=== PATIENT | female | born 1965 | race Caucasian/White ===

== ENCOUNTER 2017-10-20 14:25 | Emergency (ER) | payer OTHER, SELFPAY ==
[2017-10-20 14:44] LABS: Bilirubin Negative (Negative); Blood, Urine Negative (Negative); Glucose, Urine (Dipstick) Negative (Negative); Ketone, Urine Negative (Negative); Nitrite Negative (Negative); Protein, Urine (Dipstick) Negative (Neg-Trace); Urobilinogen 0.2 mg/dL (0.2-1.0)
[2017-10-20 14:46] LABS: Bacteria/HPF None Seen HPF (None Seen); Hyaline Casts/LPF 0-3 HYALINE CAST LPF (0-3 Hyaline); RBC/HPF 0-3 HPF (0-3); Squamous Epithelial 0-3 HPF (0-3); WBC/HPF 0-3 HPF (0-3)
[2017-10-20 15:13] LABS: #Basophils 0.1 thou/uL (0.0-0.2); #Eosinphils 0.1 thou/uL (0.0-0.7); #Lymphocytes 2.6 thou/uL (1.20-3.40); #Monocytes 0.9 thou/uL (0.11-0.59); #Neutrophils 8.2 thou/uL (1.40-6.50); %Basophils 0.8 % (0.0-1.0); %Eosinophils 0.7 % (0.0-10.0); %Lymphocytes 21.9 % (21.0-51.0); %Monocytes 7.4 % (0.0-10.0); Hematocrit 39.7 % (36.0-47.0); Mean Platelet Volume 6.4 fL (7.4-10.4); Red Blood Cell (RBC) Count 4.47 mill/uL (4.20-5.40); White Blood Cell (WBC) Count 11.8 thou/uL (4.8-10.8)
[2017-10-20 15:35] LABS: ALT (SGPT) 24 U/L (8-55); AST (SGOT) 20 U/L (5-34); Alkaline Phosphatase 156 U/L (40-150); Anion Gap 13 mmol/L (10-20); BUN (Urea Nitrogen) 7 mg/dL (9.8-20.1); Bilirubin, Total 0.3 mg/dL (0.2-1.2); Calc. Creatinine Clearance 0 mL/min (70-130); Calcium 9.5 mg/dL (7.8-10.44); Carbon Dioxide 27 mmol/L (22-29); Chloride 104 mmol/L (98-107); Estimated GFR-MDRD 89; Globulin 3.5 g/dL (2.4-3.5); Lipase 13 U/L (8-78); Protein, Total 7.3 g/dL (6.0-8.3)
[2017-10-20] MEDS ORDERED: Lidocaine Viscous Sol 2% 15 ml UD Cup ONE (17:14)
[2017-10-20] MEDS ORDERED: Mag-Al 1200 mg/1200 mg/30 ML UDCUP ONE (17:14)
--- NOTE | 2017-10-20 17:21 | RAD ---
ABDOMEN TWO VIEWS ONE VIEW CHEST X-RAY 10/20/17 HISTORY: Left sided abdominal pain. COMPARISON: Chest one view 02/07/17. FINDINGS: The lungs are clear. No pneumothorax or effusion. The cardiac silhouette and mediastinal contours are similar. Mild S-shaped scoliosis. On the upright view, there is no free air in the hemidiaphragms. No dilated air filled loops of large or small bowel. 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 No abnormal calcification projecting over the renal shadows. IMPRESSION: No acute intra-abdominal abnormality. POS: [facility]
[2017-10-20] MEDS ORDERED: Famotidine/PF 20 mg/2ml Vial ONE (18:07)
[2017-10-20] MEDS ORDERED: Promethazine HCl 25 MG/ML VIAL ONE (18:07)
== END 2017-10-20 20:15 | disposition home or self-care (01) ==
LOC: ERS 14:25
DX: K29.70 Gastritis, unspecified, without bleeding (principal); K29.80 Duodenitis without bleeding; I10 Essential (primary) hypertension; F32.9 Major depressive disorder, single episode, unspecified; F17.210 Nicotine dependence, cigarettes, uncomplicated; Z79.899 Other long term (current) drug therapy
CPT/HCPCS: 36415; 74022; 80053; 81003; 81015; 83690; 85025; 96365; 96366; 96375; 99406; J2550; S0028

== ENCOUNTER 2018-01-30 19:58 | Inpatient (IN) | payer SELFPAY ==
[2018-01-30 20:51] LABS: #Eosinphils 0.1 thou/uL (0.0-0.7); #Monocytes 1.4 thou/uL (0.11-0.59); #Neutrophils 13.2 thou/uL (1.40-6.50); %Basophils 0.2 % (0.0-1.0); %Eosinophils 0.4 % (0.0-10.0); %Monocytes 8.4 % (0.0-10.0); Hemoglobin 11.4 g/dL (12.0-16.0); Mean Corpuscular HGB CONC 32.8 g/dL (32.0-36.0); Mean Corpuscular Hemoglobin 28.8 pg (27.0-31.0); Mean Platelet Volume 6.8 fL (7.4-10.4); Platelet Count 372 thou/uL (130-400); RBC Distribution Width 13.6 % (11.5-14.5); Red Blood Cell (RBC) Count 3.94 mill/uL (4.20-5.40); White Blood Cell (WBC) Count 16.7 thou/uL (4.8-10.8)
[2018-01-30 20:59] LABS: Bilirubin Negative (Negative); Blood, Urine Negative (Negative); Clarity CLOUDY (Clear); Glucose, Urine (Dipstick) Negative (Negative); Leukocyte Trace (Negative); Nitrite Negative (Negative); Protein, Urine (Dipstick) Negative (Neg-Trace); Specific Gravity, Urine 1.022 (1.002-1.036); Urobilinogen 0.2 mg/dL (0.2-1.0)
[2018-01-30 21:01] LABS: Bacteria/HPF None Seen HPF (None Seen); Pathc Cast-AUWi Flag 1.21 (0-2.49); Squamous Epithelial 0-3 HPF (0-3); WBC/HPF 0-3 HPF (0-3)
[2018-01-30 21:06] LABS: Medtox Reader # READER 4
[2018-01-30 21:07] LABS: Amphetamine Not Detected (NotDetected); Barbiturates Screen Not Detected (NotDetected); Benzodiazepine Screen Not Detected (NotDetected); Cocaine Metabolite Screen Not Detected (NotDetected); Medtox Control Line Valid? VALID (VALID); Methadone Not Detected (NotDetected); Methamphetamine Not Detected (NotDetected); Opiate Screen Detected (NotDetected); Oxycodone Screen Not Detected (NotDetected); Phencyclidine (PCP) Not Detected (NotDetected); THC/Cannabinoid Screen Not Detected (NotDetected); Tricyclic Screen Detected (NotDetected)
--- NOTE | 2018-01-30 21:20 | RAD ---
PORTABLE CHEST ONE VIEW: 01/30/18 at 8:43 p.m. HISTORY: Altered mental status, possible drug use. FINDINGS: Comparison is made with exam of 02/07/17. The heart size is normal. No confluent areas of consolidation, pneumothorax, awilda pulmonary edema, o r pleural effusions are seen. IMPRESSION: No acute process. POS: [facility]
[2018-01-30 21:27] LABS: ALT (SGPT) 28 U/L (8-55); AST (SGOT) 74 U/L (5-34); Albumin 3.9 g/dL (3.5-5.0); Alkaline Phosphatase 150 U/L (40-150); Anion Gap 26 mmol/L (10-20); BUN (Urea Nitrogen) 61 mg/dL (9.8-20.1); Bilirubin, Total 0.4 mg/dL (0.2-1.2); Calc. Creatinine Clearance 0 mL/min (70-130); Calcium 8.4 mg/dL (7.8-10.44); Carbon Dioxide 11 mmol/L (22-29); Chloride 98 mmol/L (98-107); Estimated GFR-MDRD 6; Glucose 74 mg/dL (70-105); Potassium 4.8 mmol/L (3.5-5.1); Protein, Total 6.9 g/dL (6.0-8.3); Sodium 130 mmol/L (136-145)
[2018-01-30] MEDS ORDERED: Meropenem 1 GM in Syringe 20 ML SLOW IVP SCH (21:30)
[2018-01-30 22:20] LABS: INR-International Normal Ratio 1.3; PTT 35.7 SEC (22.9-36.1); Prothrombin Time 16.3 SEC (12.0-14.7)
[2018-01-30 22:21] LABS: D-Dimer Test 0.77 *mcg/mL (0.27-0.43)
[2018-01-30 22:32] LABS: Creatinine, Urine 91.82 mg/dL (47-110)
--- NOTE | 2018-01-30 22:53 | ULT ---
VENOUS DOPPLER ULTRASOUND OF THE RIGHT UPPER EXTREMITY: 01/30/18 HISTORY: Right arm bruising and edema. TECHNIQUE: Pratt scale ultrasound with color flow and spectral doppler imaging of the deep venous system of the r ight upper extremity is performed. FINDINGS: There is good flow, compression, and augmentation and normal spectral waveforms noted in the internal jugular, subclavian, axillary, brachial, basilic, ulnar, radial, and cephalic veins. IMPRESSION: No evidence of DVT in the right upper extremity. POS: [facility]
[2018-01-30] MEDS ORDERED: Norepinephrine 8 MG in Sodium Chloride 0.9% 250 ML 250 ML IVPB PRN (22:59)
[2018-01-30] MEDS ORDERED: Lorazepam 2 MG/ML VIAL ONE ×2 (23:04→23:57)
--- NOTE | 2018-01-30 23:17 | RAD ---
RIGHT HUMERUS TWO VIEWS: 01/30/18 HISTORY: Right arm pain. FINDINGS/IMPRESSION: The right humerus is intact. POS: [facility]
--- NOTE | 2018-01-30 23:49 | CT ---
CT BRAIN WITHOUT CONTRAST 01/30/18 HISTORY: Altered mental status. FINDINGS: No evidence of acute infarct, hemorrhage, midline shift or abnormal extra-axial fluid collections are seen. The ventricular size is normal and the basilar cisterns patent. The bony calvarium is intact. The visualized paranasal sinuses and mastoid air cells are well aerated. IMPRESSION: No acute process. POS: [facility]
--- NOTE | 2018-01-30 23:54 | CT ---
CT CHEST WITHOUT CONTRAST CT ABDOMEN WITHOUT CONTRAST CT PELVIS WITHOUT CONTRAST 01/30/18 HISTORY: Altered mental status, abdominal pain, recent fever. FINDINGS: Absence of IV contrast reduces the sensitivity of the exam for evaluation of mediastinal, hilar, vasc ular structures and solid organs. Absence of oral contrast reduces sensitivity of the exam for evalua tion of bowel. No pneumothorax, pleural or pericardial effusions are seen. Mild patchy infiltrates are seen in the m id and lower lung tobin. No free air or free fluid is seen in the abdomen or pelvis. There is high d ensity material in the dependent portions of the gallbladder consistent with cholelithiasis. There is a punctate calculus in the left kidney seen on the coronal reconstructions. No calculi seen in the r ight kidney, ureters or the urinary bladder. No hydroureteronephrosis identified on either side. Ther e are degenerative changes in the thoracolumbar spine. There are vascular calcifications without evid ence of aneurysmal dilatation of the thoracolumbar spine. IMPRESSION: 1. Mild patchy infiltrates in the lung tobin bilaterally. 2. Cholelithiasis. 3. Punctate nonobstructing left renal calculus. POS: [facility]
[2018-01-31] MEDS ORDERED: Lorazepam 2 MG/ML VIAL ONE (00:51)
[2018-01-31 03:27] LABS: Base Excess-Venous -16.2 mmol/L (-30.0-30.0); Bicarbonate (HCO3v) 11.1 mmol/L (1.0-85.0); CO2 Tension (PvCO2) 30.8 mmHg (41.0-51.0); Calcium, Ionized 1.06 mmol/L (1.12-1.32); Hemoglobin - Calc 10.7 g/dL (12.0-18.0); O2 Tension (PvO2) 47.5 mmHg (35.0-45.0); Potassium 4.1 mmol/L (3.4-4.7); T. Carbon Dioxide 12.1 mmol/L (1.0-85.0); pH (Venous) 7.165 (7.35-7.45); vO2 Saturation-calc 72.4 % (0.0-100.0)
[2018-01-31] MEDS ORDERED: Sodium Bicarb 50 MEQ/50 ML Abboject 8.4% SYRINGE ONE (03:29)
[2018-01-31] MEDS ORDERED: Ondansetron HCl/PF 4 MG/2 ML Vial IVP PRN (04:20)
[2018-01-31] MEDS ORDERED: Sodium Chloride 0.45% 1,000 ML IV SCH (04:20)
[2018-01-31] MEDS ORDERED: Ondansetron ODT 4 MG TAB SL PRN (04:20)
[2018-01-31 04:27] LABS: Acetaminophen Less than 6.0 mcg/mL (10.0-30.0); Alcohol Less than 10 mg/dL (Less than 10); Salicylate Less than 8.0 mg/dL (15.0-30.0)
[2018-01-31 04:59] VITALS: BMI 36.9
[2018-01-31] MEDS ORDERED: Norepinephrine 8 MG in Sodium Chloride 0.9% 250 ML 250 ML IVPB PRN (07:11)
[2018-01-31 07:36] LABS: Anion Gap 25 mmol/L (10-20); BUN (Urea Nitrogen) 52 mg/dL (9.8-20.1); Calc. Creatinine Clearance 27 mL/min (70-130); Calcium 8.4 mg/dL (7.8-10.44); Carbon Dioxide 13 mmol/L (22-29); Chloride 108 mmol/L (98-107); Estimated GFR-MDRD 13; Glucose 88 mg/dL (70-105); Sodium 142 mmol/L (136-145)
[2018-01-31 07:37] LABS: #Basophils 0.1 thou/uL (0.0-0.2); #Eosinphils 0.1 thou/uL (0.0-0.7); #Lymphocytes 2.4 thou/uL (1.20-3.40); #Monocytes 1.6 thou/uL (0.11-0.59); #Neutrophils 9.5 thou/uL (1.40-6.50); %Basophils 0.5 % (0.0-1.0); %Eosinophils 0.6 % (0.0-10.0); %Lymphocytes 17.8 % (21.0-51.0); %Monocytes 11.5 % (0.0-10.0); %Neutrophils 69.6 % (42.0-75.0); Hemoglobin 11.4 g/dL (12.0-16.0); Mean Corpuscular HGB CONC 33.3 g/dL (32.0-36.0); Mean Corpuscular Hemoglobin 30.2 pg (27.0-31.0); Mean Corpuscular Volume 90.7 fl (81.0-99.0); Mean Platelet Volume 7.6 fL (7.4-10.4); Platelet Count 348 thou/uL (130-400); RBC Distribution Width 13.4 % (11.5-14.5); Red Blood Cell (RBC) Count 3.78 mill/uL (4.20-5.40); White Blood Cell (WBC) Count 13.6 thou/uL (4.8-10.8)
[2018-01-31] MEDS: Sodium Chloride 0.9% 1,000 ML IV SCH ×2 (07:53→16:14)
[2018-01-31] MEDS: Meropenem 500 MG, Admixture Fee 1 EACH in Sterile Water 10 ML SLOW IVP SCH ×3 (11:31→23:21)
--- NOTE | 2018-01-31 13:03 | CON ---
DATE OF CONSULTATION: 01/31/2018 HISTORY OF PRESENT ILLNESS: Ms. Balbuena is a 52-year-old white female who was admitted for acute men seven status change. Initial imaging of the head showed no acute intracranial abnormality. She has al so a history of drug use? She was initially noted to be hypotensive and acute kidney injury. She wa s initially volume repleted. She was also placed on pressor support due to the low blood pressure. A temporary dialysis catheter was placed. However, renal function slowly improving. We were consulted for further management of this acute kidney injury. REVIEW OF SYSTEMS: Positive for decreased mentation. No nausea, no vomiting. Decreased appetite an d decreased p.o. intake. No diarrhea, no constipation, no fever, chills, no headache, no diplopia, n o sore throat, no abdominal pain, no gross hematuria, no dysuria, no urinary frequency, no syncopal e pisode. HOME MEDICATIONS: Zoloft 100 mg q. day, gabapentin 600 mg q. day and tramadol 50 mg q.i.d. HOSPITAL MEDICATIONS: Includes Levophed, meropenem 500 mg IV q.6 hours and normal saline at 100 mL p er hour. PAST MEDICAL HISTORY: Includes the following; hypertension, hyperlipidemia, history of drug abuse, c hronic low back pain, history of anxiety and depression. PAST SURGICAL HISTORY: 1. Status post hysterectomy. 2. Status post section. SOCIAL HISTORY: The patient lives in [place], unemployed. Two children. Currently, denies any his tory of smoking or alcohol intake, but does have use of recreational drugs. Lives with her family. ALLERGIES: None. TRAUMA: None. IMMUNIZATIONS: Up to date. HOSPITALIZATIONS: Please see past medical history. PHYSICAL EXAMINATION: VITAL SIGNS: Blood pressure is noted at 133/64, heart rate 101, respiratory rate 24 and pulse ox 100 %. GENERAL: Awake, alert and comfortable, not in distress. SKIN: Adequate turgor. HEENT: Pinkish conjunctivae, anicteric sclerae. NECK: No neck mass, no carotid bruits, no JVD. CHEST: No deformities. LUNGS: Clear breath sounds. No wheezing, no crackles. HEART: Normal sinus rhythm. No murmur, no gallops, no rubs. ABDOMEN: Globular, soft and nontender. No masses. EXTREMITIES: No edema, no deformities. LABORATORY DATA: Laboratories of 01/31/2018; white count 13.6 and hemoglobin 11.4. Sodium 142, pota ssium 4, chloride 108, carbon dioxide 13, BUN is 52, creatinine 3.72 and calcium 8.4. Further review of her serum creatinine shows the following 01/30/2018; creatinine is 6.67 and on 10/20/2017, creati nine was noted at 0.69. Urinalysis was relatively benign except for a very concentrated specific gravity. IMAGING DATA: CT scan of the brain negative intracranial abnormality. Chest x-ray was clear. Doppl er right upper extremity negative for DVT. X-ray of the humerus negative. CT scan of the abdomen an d pelvis, no obstruction. ASSESSMENT AND PLAN: Acute kidney injury - This is most likely hemodynamically mediated renal dysfun ction. The patient is much improved with the stabilization of her hemodynamic status. I agree with pressor support and volume repletion. There is no indication for any dialytic intervention. Thank you for the consult. We will continue to follow.
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
[2018-02-01] MEDS: Meropenem 500 MG, Admixture Fee 1 EACH in Sterile Water 10 ML SLOW IVP SCH ×3 (05:04→17:30)
[2018-02-01] MEDS: Sodium Chloride 0.9% 1,000 ML IV SCH ×2 (05:04→13:00)
[2018-02-01 10:07] LABS: Anion Gap 13 mmol/L (10-20); BUN (Urea Nitrogen) 21 mg/dL (9.8-20.1); Calc. Creatinine Clearance 126 mL/min (70-130); Calcium 8.9 mg/dL (7.8-10.44); Carbon Dioxide 20 mmol/L (22-29); Chloride 111 mmol/L (98-107); Estimated GFR-MDRD 76; Glucose 301 mg/dL (70-105); Potassium 4.3 mmol/L (3.5-5.1); Sodium 140 mmol/L (136-145)
--- NOTE | 2018-02-01 12:30 | PRG ---
DATE OF SERVICE: 02/01/2018 SUBJECTIVE: Ms. Balbuena is much more alert today. She responds to questions quickly. It took her a bout 10 seconds, but she answered that she was in the hospital. OBJECTIVE: VITAL SIGNS: She is afebrile, heart rate 90, respiratory rates in the 20s, oximetry is 96 on room ai r. LUNGS: Clear. HEART: Regular rhythm. ABDOMEN: Soft. EXTREMITIES: Without asymmetry. LABORATORY DATA: Sodium 140, potassium 4.3, chloride 111, bicarbonate 20, BUN 21, creatinine 0.79. Creatinine was 3.72 yesterday. ASSESSMENT AND PLAN: 1. Encephalopathy, improving, most likely secondary to an inadvertent drug overdose. 2. Severe intravascular volume depletion, resolving. 3. Acute renal dysfunction secondary to intravascular volume depletion. She can be transferred out of the Critical Care Unit in my opinion. Cultures have been reviewed and they remain negative at 36 hours. In my opinion, her antimicrobial therapy could be simplified. We will sign off.
[2018-02-01] MEDS: Ondansetron HCl/PF 4 MG/2 ML Vial SLOW IVP PRN (17:52)
[2018-02-01] MEDS: Magnesium Oxide 400 MG TAB PO SCH (21:48)
[2018-02-01] MEDS: Amoxicillin/Potassium Clav 875 MG TAB PO SCH (21:48)
[2018-02-02] MEDS: Ondansetron HCl/PF 4 MG/2 ML Vial SLOW IVP PRN (07:55)
[2018-02-02] MEDS ORDERED: Potassium Chloride 20 MEQ TAB PO SCH (08:00)
[2018-02-02] MEDS ORDERED: Spironolactone 25 MG TAB PO SCH (08:00)
[2018-02-02] MEDS ORDERED: Lisinopril 20 MG TAB PO SCH (09:00)
[2018-02-02] MEDS: Amoxicillin/Potassium Clav 875 MG TAB PO SCH (09:31)
[2018-02-02] MEDS: Magnesium Oxide 400 MG TAB PO SCH (09:33)
[2018-02-02 10:14] LABS: #Eosinphils 0.1 thou/uL (0.0-0.7); #Lymphocytes 1.1 thou/uL (1.20-3.40); #Monocytes 0.6 thou/uL (0.11-0.59); #Neutrophils 7.9 thou/uL (1.40-6.50); %Basophils 0.5 % (0.0-1.0); %Eosinophils 0.7 % (0.0-10.0); %Lymphocytes 11.6 % (21.0-51.0); %Neutrophils 81.2 % (42.0-75.0); Hemoglobin 11.1 g/dL (12.0-16.0); Mean Corpuscular HGB CONC 34.2 g/dL (32.0-36.0); Mean Corpuscular Volume 87.7 fl (81.0-99.0); Mean Platelet Volume 7.2 fL (7.4-10.4); Platelet Count 293 thou/uL (130-400); RBC Distribution Width 13.5 % (11.5-14.5); Red Blood Cell (RBC) Count 3.71 mill/uL (4.20-5.40); White Blood Cell (WBC) Count 9.8 thou/uL (4.8-10.8)
[2018-02-02 10:36] LABS: Anion Gap 13 mmol/L (10-20); BUN (Urea Nitrogen) 9 mg/dL (9.8-20.1); Calc. Creatinine Clearance 148 mL/min (70-130); Carbon Dioxide 22 mmol/L (22-29); Chloride 110 mmol/L (98-107); Estimated GFR-MDRD Greater than 90; Glucose 208 mg/dL (70-105); Potassium 3.9 mmol/L (3.5-5.1); Sodium 141 mmol/L (136-145)
[2018-02-02 11:38] VITALS: BP 161/87; TEMP 98.3
== END 2018-02-02 12:05 | disposition home or self-care (01) | DRG 917 ==
LOC: ERS 19:58 → CCU 01-31 04:12 → ONC 02-01 22:15
PROVIDERS: ADMIT Internal Medicine; ATTEND Internal Medicine
PROC: 06HY33Z Insertion of Infusion Device into Lower Vein, Percutaneous Approach (ICD-10-PCS; principal; 2018-01-31)
DX: T50.901A Poisoning by unspecified drugs, medicaments and biological substances, accidental (unintentional), initial encounter (principal); G93.40 Encephalopathy, unspecified; N17.9 Acute kidney failure, unspecified; R41.82 Altered mental status, unspecified; G89.29 Other chronic pain; I10 Essential (primary) hypertension; M54.9 Dorsalgia, unspecified; E78.5 Hyperlipidemia, unspecified; F11.11 Opioid abuse, in remission; F17.210 Nicotine dependence, cigarettes, uncomplicated; K80.20 Calculus of gallbladder without cholecystitis without obstruction; F41.9 Anxiety disorder, unspecified; F32.9 Major depressive disorder, single episode, unspecified; E86.0 Dehydration
CPT/HCPCS: 36415; 36556; 51701; 70450; 71045; 71250; 74177; 80048; 80053; 80306; 80307; 81003; 81015; 82140; 82330; 82435; 82553; 82570; 82693; 82803; 83605; 83690; 84132; 84295; 84300; 84439; 84443; 84484; 85014; 85025; 85379; 85610; 85730; 87040; 87086; 93005; 94640; 96361; 96366; 96367; 96375; 96376; 99292; 99406; A4216; A4353; C1752; G8978-GP-CJ; G8979-GP-CJ; G8980-GP-CJ; G8987-GO-CI; G8988-GO-CI; G8989-GO-CI; J2060; J2185; J2405; J3370; J7050; J7620

== ENCOUNTER 2019-06-20 18:30 | Emergency (ER) | payer SELFPAY ==
[2019-06-20 19:19] LABS: Bilirubin Negative (Negative); Blood, Urine Negative (Negative); Clarity Clear (Clear); Glucose, Urine (Dipstick) 50 mg/dL (Negative); Leukocyte 500 Leu/uL (Negative); Nitrite Negative (Negative); Protein, Urine (Dipstick) Negative (Neg-Trace); RBC/HPF 0-3 HPF (0-3); Squamous Epithelial 0-3 HPF (0-3); Urobilinogen Normal mg/dL (Less than 2)
[2019-06-20 19:23] LABS: #Basophils 0.2 thou/uL (0.0-0.2); #Eosinphils 0.1 thou/uL (0.0-0.7); #Lymphocytes 3.5 thou/uL (1.20-3.40); #Monocytes 0.9 thou/uL (0.11-0.59); #Neutrophils 8.8 thou/uL (1.40-6.50); %Basophils 1.2 % (0.0-1.0); %Eosinophils 1.1 % (0.0-10.0); %Lymphocytes 26.1 % (21.0-51.0); %Monocytes 6.5 % (0.0-10.0); %Neutrophils 65.1 % (42.0-75.0); Hemoglobin 13.4 g/dL (12.0-16.0); Mean Corpuscular HGB CONC 33.8 g/dL (32.0-36.0); Mean Corpuscular Hemoglobin 29.4 pg (27.0-31.0); Mean Corpuscular Volume 86.9 fL (78.0-98.0); Mean Platelet Volume 7.8 fL (7.4-10.4); Platelet Count 380 thou/uL (130-400); RBC Distribution Width 13.1 % (11.5-14.5); Red Blood Cell (RBC) Count 4.56 mill/uL (4.20-5.40); White Blood Cell (WBC) Count 13.5 thou/uL (4.8-10.8)
[2019-06-20 19:29] LABS: Bacteria/HPF Rare-Few HPF (None Seen)
[2019-06-20 19:43] LABS: ALT (SGPT) Less than 7 U/L (8-55); AST (SGOT) 8 U/L (5-34); Alkaline Phosphatase 224 U/L (40-150); Anion Gap 17 mmol/L (10-20); BUN (Urea Nitrogen) 4 mg/dL (9.8-20.1); Bilirubin, Total 0.4 mg/dL (0.2-1.2); Calc. Creatinine Clearance 0 mL/min (70-130); Calcium 9.5 mg/dL (7.8-10.44); Carbon Dioxide 24 mmol/L (22-29); Chloride 95 mmol/L (98-107); Estimated GFR-MDRD 71; Globulin 3.3 g/dL (2.4-3.5); Glucose 299 mg/dL (70-105); Protein, Total 7.3 g/dL (6.0-8.3); Sodium 133 mmol/L (136-145)
[2019-06-20 19:47] LABS: Potassium 2.5 mmol/L (3.5-5.1)
[2019-06-20] MEDS ORDERED: Potassium Chloride 20 MEQ TAB ONE (20:28)
--- NOTE | 2019-06-20 22:18 | ULT ---
Right upper quadrant ultrasound: 06/20/2019 COMPARISON: None HISTORY: Pain TECHNIQUE: Multiplanar grayscale sonographic imaging of the right upper quadrant obtained. FINDINGS: The pancreas is obscured by bowel gas. The zipper setter lockstitch reports a negative Dallas's sign. No focal liver lesion or intrahepatic biliary dilat ation. No gallbladder wall thickening or pericholecystic fluid is seen. There is echogenic nonshadowing mate rial layering within the gallbladder suggesting gallbladder sludge and/or noncalcified small stones. The common bile duct measures 4 mm, within normal limits. Right kidney measures 10.4 cm in craniocaudal dimension and demonstrates no stone, hydronephrosis, or mass. IMPRESSION: Echogenic material layering within the gallbladder as above. No sonographic evidence of a cute cholecystitis or biliary dilatation.
--- NOTE | 2019-06-22 15:31 | EKG ---
Test Reason : Blood Pressure : / mmHG Vent. Rate : 107 BPM Atrial Rate : 107 BPM P-R Int : 162 ms QRS Dur : 150 ms QT Int : 390 ms P-R-T Axes : 036 -14 130 degrees QTc Int : 520 ms Sinus tachycardia Left bundle branch block Abnormal ECG When compared with ECG of JAN-2018 No changes Confirmed by KING TIWARI, YANETH Leonardo ([id number]), development editor FAUSTO NEW ([id number]) on 06/22/2019 3:31:20 PM Referred By: Confirmed By:YANETH MALIK MD
== END 2019-06-20 22:58 | disposition home or self-care (01) ==
LOC: ERS 18:30
DX: K80.20 Calculus of gallbladder without cholecystitis without obstruction (principal); E87.6 Hypokalemia; N39.0 Urinary tract infection, site not specified; I10 Essential (primary) hypertension; F32.9 Major depressive disorder, single episode, unspecified; F17.210 Nicotine dependence, cigarettes, uncomplicated; Z79.899 Other long term (current) drug therapy; Z71.6 Tobacco abuse counseling
CPT/HCPCS: 36415; 76705; 80053; 81003; 81015; 83690; 85025; 87086; 93005; 96360; 96361; 99406

== ENCOUNTER 2019-09-10 14:47 | Inpatient (IN) | payer SELFPAY ==
[2019-09-10] MEDS ORDERED: Ondansetron PF 4 MG/2 ML Vial ONE (15:02)
[2019-09-10 15:09] LABS: #Eosinphils 0.1 thou/uL (0.0-0.7); #Lymphocytes 0.9 thou/uL (1.20-3.40); #Monocytes 0.5 thou/uL (0.11-0.59); #Neutrophils 8.9 thou/uL (1.40-6.50); %Basophils 0.4 % (0.0-1.0); %Eosinophils 0.6 % (0.0-10.0); %Lymphocytes 8.9 % (21.0-51.0); %Monocytes 4.9 % (0.0-10.0); %Neutrophils 85.3 % (42.0-75.0); Hemoglobin 15.2 g/dL (12.0-16.0); Mean Corpuscular HGB CONC 33.3 g/dL (32.0-36.0); Mean Corpuscular Hemoglobin 30.5 pg (27.0-31.0); Mean Corpuscular Volume 91.3 fL (78.0-98.0); Mean Platelet Volume 10.4 fL (7.4-10.4); Platelet Count 264 thou/uL (130-400); RBC Distribution Width 13.6 % (11.5-14.5); Red Blood Cell (RBC) Count 4.99 mill/uL (4.20-5.40); White Blood Cell (WBC) Count 10.5 thou/uL (4.8-10.8)
[2019-09-10 15:32] LABS: ALT (SGPT) Less than 7 U/L (8-55); AST (SGOT) 17 U/L (5-34); Albumin 3.6 g/dL (3.5-5.0); Alkaline Phosphatase 187 U/L (40-110); Anion Gap 25 mmol/L (10-20); BUN (Urea Nitrogen) 4 mg/dL (9.8-20.1); Bilirubin, Total 1.3 mg/dL (0.2-1.2); CK (CPK) 145 U/L (29-168); Calc. Creatinine Clearance 0 mL/min (70-130); Calcium 8.2 mg/dL (7.8-10.44); Carbon Dioxide 29 mmol/L (22-29); Estimated GFR-MDRD 45; Globulin 3.4 g/dL (2.4-3.5); Lipase 8 U/L (8-78); Sodium 125 mmol/L (136-145)
--- NOTE | 2019-09-10 15:44 | ULT ---
ULTRASOUND ABDOMEN LIMITED: (RIGHT UPPER QUADRANT) DATE: 09/10/2019 HISTORY: 54-year-old female with right upper quadrant abdominal pain FINDINGS: Suboptimal visualization of intra-abdominal contents due to body habitus. Gallbladder:Distended lumen. In addition to sludge, there is posterior layering of fine, tiny echogen ic material consistent with tiny gallstones (gravel). Reportedly positive sonographic Dallas's sign according to the managed care provider. Mild mural thickening of approximate 4 mm. Common duct: 5 mm. Liver:Echogenicity within normal limits. Pancreas:Nonspecific sonographic appearance. Right kidney:No hydronephrosis. IMPRESSION: Probable cholelithiasis, sludge, and possible acute cholecystitis.
[2019-09-10 15:53] LABS: CKMB 3.1 ng/mL (0-6.6)
[2019-09-10 16:10] LABS: Chloride 73 mmol/L (98-107); Glucose 731 mg/dL (70-105); Potassium 1.7 mmol/L (3.5-5.1)
[2019-09-10 16:23] LABS: Magnesium 1.6 mg/dL (1.6-2.6)
[2019-09-10] MEDS ORDERED: Insulin Regular 300 UNITS/3 ML VIAL ONE (16:28)
[2019-09-10 16:37] LABS: Bacteria/HPF None Seen HPF (None Seen); Bilirubin Negative (Negative); Blood, Urine Negative (Negative); Clarity Clear (Clear); Glucose, Urine (Dipstick) Greater than 1000 mg/dL (Negative); Leukocyte 25 Leu/uL (Negative); Nitrite Negative (Negative); Protein, Urine (Dipstick) Negative (Neg-Trace); RBC/HPF 0-3 HPF (0-3); Squamous Epithelial 0-3 HPF (0-3); Urobilinogen Normal mg/dL (Less than 2)
[2019-09-10] MEDS ORDERED: HUMULIN R 100 UNITS in Sodium Chloride 0.9% 100 ML IVPB SCH ×2 (16:45→20:45)
[2019-09-10 16:46] LABS: Amphetamine Not Detected (NotDetected); Barbiturates Screen Not Detected (NotDetected); Benzodiazepine Screen Not Detected (NotDetected); Cocaine Metabolite Screen Not Detected (NotDetected); Medtox Control Line Valid? VALID (VALID); Medtox Reader # READER 1; Methadone Not Detected (NotDetected); Methamphetamine Not Detected (NotDetected); Opiate Screen Not Detected (NotDetected); Oxycodone Screen Not Detected (NotDetected); Phencyclidine (PCP) Not Detected (NotDetected); THC/Cannabinoid Screen Not Detected (NotDetected); Tricyclic Screen Not Detected (NotDetected)
[2019-09-10 19:19] LABS: Lactic Acid 7.3 mmol/L (0.5-2.2)
[2019-09-10 19:22] LABS: Troponin I 0.032 ng/mL (< 0.028)
[2019-09-10] MEDS ORDERED: Dextrose 5% in Water 1,000 ML IV PRN (20:33)
[2019-09-10] MEDS ORDERED: Dextrose 5 %-0.45 % NaCl 1,000 ML IV PRN (20:33)
[2019-09-10] MEDS ORDERED: Sodium Chloride 0.9% 1,000 ML IV PRN ×4 (20:33)
[2019-09-10] MEDS ORDERED: NS 0.9% w/ 20 MEQ KCL 1,000 ML/1,000 ML BAG IV PRN ×2 (20:33)
[2019-09-10] MEDS ORDERED: Dextrose 50% Abboject 50 ML SYRINGE SLOW IVP PRN (20:34)
[2019-09-10] MEDS ORDERED: Sodium Chloride 0.9% (PF) 10 ML VIAL FS PRN (20:37)
[2019-09-10] MEDS ORDERED: ADD ELECTROLYTE REPLACEMENT SET TO PROFILE FS SCH (20:45)
[2019-09-10 20:50] LABS: Anion Gap 16 mmol/L (10-20); BUN (Urea Nitrogen) 4 mg/dL (9.8-20.1); Calc. Creatinine Clearance 0 mL/min (70-130); Calcium 7.4 mg/dL (7.8-10.44); Carbon Dioxide 32 mmol/L (22-29); Chloride 92 mmol/L (98-107); Estimated GFR-MDRD 80; Glucose 148 mg/dL (70-105); Sodium 138 mmol/L (136-145)
[2019-09-10 20:59] LABS: Potassium 1.7 mmol/L (3.5-5.1)
[2019-09-10] MEDS ORDERED: Potassium Chloride 20 MEQ in Premix Bag 1 BAG IVPB SCH (21:15)
[2019-09-10] MEDS ORDERED: Potassium Chloride 20 MEQ/100 ML PREMIX BAG ONE (21:39)
[2019-09-10] MEDS: D5 1/2 NS w/20 mEq KCL 1,000 ML IV PRN (22:39)
--- NOTE | 2019-09-10 22:40 | HP ---
CHIEF COMPLAINT: Abdominal pain, nausea, and vomiting. HISTORY OF PRESENT ILLNESS: Ms. Balbuena is a 54-year-old female with past medical history of hypertension, started having some abdominal pain, nausea, vomiting for a month. The patient claims she was seen in the ER. She does not remember which one and then she was diagnosed with gallstones and was released, but for the last 2 weeks, her nausea and vomiting got worse and not able to tolerate anything, has diffuse some abdominal pain as well. No fever. Decreased appetite. She also has some signs of UTI with dysuria and frequency of urination. The patient came to the hospital. In the ER, the patient was evaluated and found to have new onset diabetes mellitus with DKA and severe hypokalemia. The patient is given IV fluid bolus 2 L and then started on IV insulin infusion after 10 units of bolus. Also received Zofran. She is also on potassium replacement. Abdominal ultrasound showed possible cholelithiasis with sludge, possible acute cholecystitis. PAST MEDICAL HISTORY: 1. Hypertension. 2. Chronic back pain. 3. History of drug abuse and drug overdose. 4. Hyperlipidemia. 5. History of respiratory failure. PAST SURGICAL HISTORY: Status post back surgery, status post , status post hysterectomy, history of depression. CURRENT MEDICATIONS: The patient is on; 1. Gabapentin 600 mg 3 times daily. 2. Nexium 40 mg daily. 3. KCl 20 mEq daily. 4. Lisinopril 20 mg b.i.d. 5. Supposed to be on Cymbalta 60 mg daily. ALLERGIES: NKDA. FAMILY HISTORY: Nothing contributory. SOCIAL HISTORY: The patient smokes half pack a day. Used to take drugs before. REVIEW OF SYSTEMS: CARDIOVASCULAR: No chest pain. No shortness of breath. RESPIRATORY: No fever or cough. GASTROINTESTINAL: Denies abdominal pain, nausea, or vomiting. CENTRAL NERVOUS SYSTEM: No headache. No dizziness. PHYSICAL EXAMINATION: GENERAL: The patient is alert, awake, and oriented x3. VITAL SIGNS: Temperature 98, pulse 80, respirations 20, blood pressure 100/60. HEENT: Head is normocephalic, atraumatic. Pupils are equal and reactive. Nasopharynx is pale and dry. NECK: Supple. No JVD. LUNGS: Bilateral air entry. No rales, no rhonchi. HEART: S1 and S2 regular. ABDOMEN: Soft. Diffusely tender. No guarding. No rigidity. Bowel sounds present. RECTAL: Deferred. CENTRAL NERVOUS SYSTEM: No focal deficits. LABORATORY DATA: CBC shows WBC 10.5, hemoglobin 15, hematocrit 45, platelets 264. Metabolic panel; sodium 125, potassium , chloride 73, CO2 of 21, BUN 4 , creatinine 1.2, glucose 130, lactic acid 7.8, phosphorus 2, bilirubin 1.3. Alkaline phosphatase 187. Troponin I 0.075. Urinalysis negative. Urine toxicology screen negative. ASSESSMENT: 1. New onset diabetes mellitus, uncontrolled. 2. Possible diabetic ketoacidosis. 3. Intractable nausea and vomiting. 4. Possible acute cholecystitis. 5. Severe hypokalemia. 6. Hypertension. PLAN: 1. Vital signs q.4 hours. 2. Activity as tolerated. 3. Allergies, NKDA. 4. IV fluids normal saline with KCl at 10-15 mL/h. 5. Insulin infusion 6 units/hour. 6. Accu-Cheks q.1 hour. 7. DKA protocol. 8. Diet, n.p.o. except for clear liquids. 9. Zofran p.r.n. 10. Protonix 40 mg IV piggyback daily. 11. Lovenox 40 mg subcu daily. 12. Surgical consultation tomorrow. Job ID: [id number] [facility]
[2019-09-10 22:58] VITALS: BMI 31.2
[2019-09-10] MEDS: Enoxaparin Sodium 40 MG/0.4 ML SYRINGE SC SCH (23:17)
[2019-09-10] MEDS: NS 0.9% w/ 20 MEQ KCL 1,000 ML IV SCH (23:19)
[2019-09-11] MEDS ORDERED: PHOS-NAK 1 PKT PACK PO PRN ×2 (00:37)
[2019-09-11] MEDS ORDERED: Potassium Chloride 40 MEQ in Premix Bag 1 BAG IVPB PRN (00:37)
[2019-09-11] MEDS ORDERED: CCU ELECTROLYTE REPLACEMENT PROTOCOL FS PRN (00:37)
[2019-09-11] MEDS ORDERED: Potassium Phosphate 9 MMOL in Sodium Chloride 0.9% 100 ML IVPB PRN (00:37)
[2019-09-11] MEDS ORDERED: Potassium Phosphate 15 MMOL in Sodium Chloride 0.9% 250 ML 250 ML IV PRN (00:37)
[2019-09-11] MEDS ORDERED: Potassium Phosphate 12 MMOL in Sodium Chloride 0.9% 250 ML 250 ML IV PRN (00:37)
[2019-09-11] MEDS ORDERED: Magnesium 2 GM/50 ML 2 GM in Premix Bag 1 BAG IVPB PRN (00:37)
[2019-09-11] MEDS ORDERED: Magnesium Oxide 400 MG TAB PO PRN ×2 (00:37)
[2019-09-11 01:39] LABS: Anion Gap 12 mmol/L (10-20); BUN (Urea Nitrogen) 4 mg/dL (9.8-20.1); Calc. Creatinine Clearance 109 mL/min (70-130); Calcium 6.9 mg/dL (7.8-10.44); Carbon Dioxide 34 mmol/L (22-29); Chloride 93 mmol/L (98-107); Estimated GFR-MDRD Greater than 90; Glucose 183 mg/dL (70-105); Sodium 137 mmol/L (136-145)
[2019-09-11 01:42] LABS: Potassium 1.8 mmol/L (3.5-5.1)
[2019-09-11] MEDS: Potassium Chloride 40 MEQ in Sodium Chloride 0.9% 250 ML 250 ML IVPB PRN (03:34)
[2019-09-11] MEDS: Ondansetron PF 4 MG/2 ML Vial SLOW IVP PRN ×3 (05:01→22:57)
[2019-09-11] MEDS: 1/2 NS w/KCL 20 mEq 1,000 ML IV SCH ×2 (06:27→18:32)
[2019-09-11 09:00] LABS: Anion Gap 11 mmol/L (10-20); BUN (Urea Nitrogen) Less than 4 mg/dL (9.8-20.1); CK (CPK) 122 U/L (29-168); Calc. Creatinine Clearance 116 mL/min (70-130); Calcium 6.7 mg/dL (7.8-10.44); Carbon Dioxide 29 mmol/L (22-29); Chloride 99 mmol/L (98-107); Estimated GFR-MDRD Greater than 90; Glucose 205 mg/dL (70-105); Magnesium 1.9 mg/dL (1.6-2.6); Phosphorus 2.4 mg/dL (2.3-4.7); Sodium 137 mmol/L (136-145)
[2019-09-11 09:05] LABS: Potassium 1.8 mmol/L (3.5-5.1)
[2019-09-11 09:07] LABS: CKMB 3.1 ng/mL (0-6.6); Troponin I 0.034 ng/mL (< 0.028)
[2019-09-11] MEDS ORDERED: Calcium Gluconate 4.6 MEQ in Sodium Chloride 0.9% 100 ML IVPB SCH (10:30)
[2019-09-11] MEDS ORDERED: Calcium Chloride 13.6 MEQ in Sodium Chloride 0.9% 100 ML IVPB SCH (10:30)
[2019-09-11] MEDS ORDERED: Potassium Chloride 20 MEQ in Premix Bag 1 BAG IVPB SCH ×2 (10:45→15:15)
[2019-09-11 11:10] LABS: ALT (SGPT) Less than 7 U/L (8-55); AST (SGOT) 12 U/L (5-34); Albumin 2.7 g/dL (3.5-5.0); Alkaline Phosphatase 123 U/L (40-110); Bilirubin, Direct 0.2 mg/dL (0.1-0.3); Bilirubin, Total 0.5 mg/dL (0.2-1.2); Protein, Total 5.1 g/dL (6.0-8.3)
[2019-09-11] MEDS: Pantoprazole 40 MG VIAL IVP SCH (11:32)
--- NOTE | 2019-09-11 12:10 | RAD ---
RADIOGRAPH CHEST 1 VIEW: DATE: 09/11/2019 HISTORY: 54-year-old female with COPD. COMPARISON: 10/20/2017. FINDINGS: There are no airspace densities, pulmonary edema, pneumothorax, or cardiomegaly. The lateral costophr enic angles are sharp. There is a new finding of elevation of the right hemidiaphragm. IMPRESSION: 1. No acute cardiopulmonary findings. 2. New finding of elevation of right hemidiaphragm suggestive of right phrenic nerve palsy.
--- NOTE | 2019-09-11 14:00 | CON ---
DATE OF CONSULTATION: CHIEF COMPLAINT: Mid epigastric pain, nausea, vomiting. HISTORY OF PRESENT ILLNESS: The patient is a 54-year-old female with a 2-week history of vomiting and some epigastric pain. No previous episodes. She came to the emergency room and was found to have newly diagnosed diabetes and diabetic ketoacidosis. She was admitted to the Medical Service. She denies fever or chills. PAST MEDICAL HISTORY: Significant for hypertension, history of drug abuse, hyperlipidemia, and history of respiratory failure. PAST SURGICAL HISTORY: Back surgery, section, and hysterectomy. MEDICATIONS: 1. Gabapentin. 2. Nexium. 3. Potassium. 4. Lisinopril. 5. Cymbalta. ALLERGIES: SHE HAS NO KNOWN DRUG ALLERGIES. SOCIAL HISTORY: She smokes half pack a day. Used to be an IV drug abuser. PHYSICAL EXAMINATION: GENERAL: Well-developed, well-nourished female. She is a little lethargic. No apparent distress. VITAL SIGNS: Temperature 97.8, pulse 87, and blood pressure 118/65. HEENT: No jaundice. LUNGS: Clear. HEART: Regular rate and rhythm. ABDOMEN: Soft. She has some mild midepigastric tenderness. No significant right upper quadrant tenderness. EXTREMITIES: Unremarkable. LABORATORY DATA: Her white count is 10.5, H and H of 15 and 45, and platelet count 264. Her sodium is 137, potassium 1.8, and glucose 205. alkaline phosphatase 123, total bili of 0.5. Her lipase is normal at 8. IMAGING DATA: Her ultrasound showed some gallbladder distention with sludge and some possibly fine tiny little gallstones. Mild thickening. ASSESSMENT: Probable biliary colic. PLAN: HIDA scan. If positive, recommend laparoscopic cholecystectomy. Job ID: [id number]
[2019-09-11 14:10] LABS: Magnesium 1.8 mg/dL (1.6-2.6); Phosphorus 2.9 mg/dL (2.3-4.7); Potassium 2.3 mmol/L (3.5-5.1)
[2019-09-11] MEDS ORDERED: Spironolactone 25 MG TAB PO SCH (15:15)
[2019-09-11] MEDS ORDERED: Acetaminophen 325 MG TAB PO PRN (15:30)
[2019-09-11] MEDS ORDERED: Dextrose 5% in Water 1,000 ML IV PRN (19:00)
[2019-09-11] MEDS ORDERED: Dextrose 50% Abboject 50 ML SYRINGE IVP PRN (19:00)
[2019-09-11] MEDS: Insulin Regular 300 UNITS/3 ML VIAL SC PRN ×2 (20:47→23:38)
[2019-09-11] MEDS: Enoxaparin Sodium 40 MG/0.4 ML SYRINGE SC SCH (20:48)
[2019-09-11] MEDS ORDERED: FLU VACC QS2019-20(6MOS UP)/PF 60 MCG/0.5 ML SYRINGE IM ONE (21:00)
[2019-09-12 01:36] LABS: Magnesium 1.6 mg/dL (1.6-2.6); Phosphorus 1.3 mg/dL (2.3-4.7); Potassium 2.3 mmol/L (3.5-5.1)
[2019-09-12] MEDS: 1/2 NS w/KCL 20 mEq 1,000 ML IV SCH ×2 (02:27→09:46)
[2019-09-12] MEDS: Potassium Chloride 40 MEQ in Sodium Chloride 0.9% 250 ML 250 ML IVPB PRN (02:27)
[2019-09-12] MEDS: Insulin Regular 300 UNITS/3 ML VIAL SC PRN ×3 (05:17→22:00)
[2019-09-12 08:06] LABS: Potassium 2.5 mmol/L (3.5-5.1)
[2019-09-12] MEDS ORDERED: cefOXitin 2 GM in Sodium Chloride 0.9% 100 ML IVPB SCH (08:45)
--- NOTE | 2019-09-12 09:33 | CON ---
DATE OF CONSULTATION: HISTORY OF PRESENT ILLNESS: Derick Balbuena is a 54-year-old female, who was admitted to the hospital on the MICU. Reason for consult, she presented with abdominal pain, but no nausea or vomiting. Ultrasound reveals sludge in the gallbladder. She has had recurrent episodes of significant hypokalemia. She is not taking a diuretic. She is a smoker of pack a day, history of bronchitis and pneumonia. No history of TB or asthma. PAST MEDICAL HISTORY: Pertinent for disability secondary to spinal stenosis with surgery, hypertension. PAST SURGICAL HISTORY: Back surgery of right leg, , and hysterectomy. SOCIAL HISTORY: No alcohol. Pack-a-day smoker. HOME MEDICATIONS: 1. Nifedipine. 2. Gabapentin. 3. Cymbalta. 4. Omeprazole. REVIEW OF SYSTEMS: Unremarkable. PHYSICAL EXAMINATION: VITAL SIGNS: On examination, temperature 97, blood pressure , and respiratory rate of 18. CHEST: No wheezing or crackles. CARDIAC: Normal S1 and S2. No gallops. ABDOMEN: No masses. LABORATORY DATA: Potassium is 1.8. White count 10,000, platelet count is normal. IMAGING DATA: Chest x-ray is clear. ASSESSMENT: 1. Cholecystitis. 2. Abdominal pain. 3. Chronic back pain. PLAN: Input from surgery. She may require empiric antibiotics. Advised to refrain from smoking. Cortisol and Aldactone level is being ordered to assess recurrent severe hypokalemia. We will follow. Consultation note, 70 minutes, 50% direct patient care. Job ID: [id number]
[2019-09-12] MEDS: Spironolactone 25 MG TAB PO SCH (09:46)
[2019-09-12] MEDS: Pantoprazole 40 MG VIAL IVP SCH (09:47)
[2019-09-12] MEDS ORDERED: Potassium Chloride 20 MEQ in Premix Bag 1 BAG IVPB SCH (10:45)
[2019-09-12 12:10] LABS: #Eosinphils 0.1 thou/uL (0.0-0.7); #Lymphocytes 1.9 thou/uL (1.20-3.40); #Monocytes 0.4 thou/uL (0.11-0.59); %Basophils 0.7 % (0.0-1.0); %Eosinophils 1.3 % (0.0-10.0); %Lymphocytes 29.6 % (21.0-51.0); %Monocytes 6.5 % (0.0-10.0); %Neutrophils 61.9 % (42.0-75.0); Hemoglobin 11.8 g/dL (12.0-16.0); Mean Corpuscular HGB CONC 32.6 g/dL (32.0-36.0); Mean Corpuscular Hemoglobin 29.3 pg (27.0-31.0); Mean Corpuscular Volume 89.8 fL (78.0-98.0); Mean Platelet Volume 9.4 fL (7.4-10.4); Platelet Count 220 thou/uL (130-400); RBC Distribution Width 13.5 % (11.5-14.5); Red Blood Cell (RBC) Count 4.04 mill/uL (4.20-5.40); White Blood Cell (WBC) Count 6.5 thou/uL (4.8-10.8)
[2019-09-12] MEDS ORDERED: cefOXitin 2 GM VIAL ONE (12:14)
[2019-09-12] MEDS ORDERED: Sodium Chloride 0.9% 100 ML ONE (12:15)
[2019-09-12 12:20] LABS: Hemoglobin A1c 13.9 % (4.0-6.0)
[2019-09-12 12:26] LABS: Anion Gap 12 mmol/L (10-20); BUN (Urea Nitrogen) 5 mg/dL (9.8-20.1); Calc. Creatinine Clearance 116 mL/min (70-130); Calcium 7.5 mg/dL (7.8-10.44); Carbon Dioxide 28 mmol/L (22-29); Chloride 102 mmol/L (98-107); Estimated GFR-MDRD Greater than 90; Glucose 232 mg/dL (70-105); Sodium 140 mmol/L (136-145)
[2019-09-12 12:37] LABS: Potassium 2.3 mmol/L (3.5-5.1)
[2019-09-12] MEDS ORDERED: Digoxin 0.5 MG/2 ML AMP SLOW IVP SCH (13:00)
[2019-09-12] MEDS ORDERED: Magnesium 2 GM/50 ML 2 GM in Premix Bag 1 BAG IVPB SCH (13:30)
[2019-09-12] MEDS: Ondansetron PF 4 MG/2 ML Vial SLOW IVP PRN (13:51)
--- NOTE | 2019-09-12 16:40 | NM ---
Hepatobiliary scan: 09/12/2019 HISTORY: Evaluate patency of the cystic duct TECHNIQUE: Following the intravenous administration of 4.8 mCi of technetium 99m labeled mebrofenin, anterior planar imaging is obtained over 59 minutes FINDINGS: There is prompt radiotracer activity within the liver on post injection imaging. Early bili mendez activity is seen by approximately 19 minutes. The gallbladder fills at approximately 50 minutes. IMPRESSION: The gallbladder fills at approximately 50 minutes, consistent with patency of the cystic duct. Results were discussed with Dr. Lopes at 4:35 PM 09/12/2019.
[2019-09-12 18:13] LABS: Potassium 2.6 mmol/L (3.5-5.1)
[2019-09-12] MEDS ORDERED: Potassium Chloride 20 MEQ/100 ML PREMIX BAG IVPB SCH (18:30)
[2019-09-12] MEDS: Potassium Chloride 20 MEQ TAB PO PRN (18:40)
[2019-09-12] MEDS ORDERED: Spironolactone 25 MG TAB PO SCH (19:00)
[2019-09-12] MEDS ORDERED: Potassium Chloride 20 MEQ TAB PO SCH (20:45)
[2019-09-12] MEDS: Enoxaparin Sodium 40 MG/0.4 ML SYRINGE SC SCH (21:39)
[2019-09-12] MEDS: Insulin Glargine 10 UNITS in Pre-Filled Syringe SC SCH (21:39)
[2019-09-12 23:00] LABS: Potassium 2.7 mmol/L (3.5-5.1)
--- NOTE | 2019-09-12 23:20 | EKG ---
Test Reason : Blood Pressure : / mmHG Vent. Rate : 074 BPM Atrial Rate : 074 BPM P-R Int : 132 ms QRS Dur : 156 ms QT Int : 412 ms P-R-T Axes : 043 011 190 degrees QTc Int : 457 ms Normal sinus rhythm Left bundle branch block Abnormal ECG When compared with ECG of 20-JUN-2019 19:57, QT has shortened Confirmed by ROSANA CRUZ M.D. ([id number]) on 09/12/2019 11:20:29 PM Referred By: DEVONTE Confirmed By:ROSANA CRUZ M.D.
[2019-09-13] MEDS: Acetaminophen 325 MG TAB PO PRN (01:26)
[2019-09-13] MEDS: D5 1/2 NS w/20 mEq KCL 1,000 ML IV PRN ×2 (01:27→09:39)
[2019-09-13 04:10] LABS: Lactic Acid 3.5 mmol/L (0.5-2.2)
[2019-09-13 04:16] LABS: Anion Gap 13 mmol/L (10-20); BUN (Urea Nitrogen) 4 mg/dL (9.8-20.1); Calc. Creatinine Clearance 114 mL/min (70-130); Calcium 7.5 mg/dL (7.8-10.44); Carbon Dioxide 27 mmol/L (22-29); Chloride 97 mmol/L (98-107); Estimated GFR-MDRD Greater than 90; Glucose 152 mg/dL (70-105); Magnesium 1.7 mg/dL (1.6-2.6); Phosphorus 2.2 mg/dL (2.3-4.7); Potassium 2.5 mmol/L (3.5-5.1); Sodium 134 mmol/L (136-145)
[2019-09-13] MEDS: Potassium Chloride 20 MEQ TAB PO PRN ×2 (04:22→09:40)
[2019-09-13] MEDS: Insulin Regular 300 UNITS/3 ML VIAL SC PRN ×2 (07:24→17:18)
[2019-09-13 08:09] LABS: Potassium 3.1 mmol/L (3.5-5.1)
[2019-09-13] MEDS: Spironolactone 25 MG TAB PO SCH (09:40)
[2019-09-13] MEDS: Pantoprazole 40 MG VIAL IVP SCH (09:42)
--- NOTE | 2019-09-13 09:48 | PRG ---
DATE OF SERVICE: 09/13/2019 SUBJECTIVE: The patient feels much better. She is much more awake and alert, still has some right upper quadrant pain. OBJECTIVE: VITAL SIGNS: Her temperature is 97.3, pulse 74, blood pressure 109/63. GENERAL: She is awake, alert, in no apparent distress. No jaundice. LUNGS: Clear. HEART: Regular rate and rhythm. ABDOMEN: Soft, nondistended, nontender. Her potassium is still low at 3.1, which is better than 2.5 yesterday. Her HIDA scan was performed. It showed gallbladder filling consistent with patency of the cystic duct. ASSESSMENT: The patient may have biliary colic, but no obvious gallstones and she does not have acute cholecystitis. She has hypokalemia that is still under treatment and recently had diabetic ketoacidosis. For that reason, I do not feel it is urgent to perform surgery. I think that she needs to recover from her medical illnesses and she can follow up with me in a couple of weeks when she is better to arrange elective cholecystectomy. Job ID: [id number]
--- NOTE | 2019-09-13 10:13 | CON ---
DATE OF CONSULTATION: HISTORY OF PRESENT ILLNESS: Ms. Balbuena is a 54-year-old white female, who was initially admitted for abdominal pain with nausea and vomiting. She has been evaluated by Surgery. HIDA scan has been done, which showed no acute abnormality per se. We are now being consulted for her hypokalemia. Please note, this patient was seen a year ago due to her acute kidney injury that was hemodynamically-mediated renal dysfunction. Unclear if this patient has chronic hypokalemia. She is now being corrected. Magnesium was also noted to be low and has received several doses of magnesium sulfate. This morning, she voices no new complaints. No chest pain or shortness of breath. REVIEW OF SYSTEMS: Occasional nausea and vomiting. Occasional abdominal pain ? of diarrhea. No constipation. No productive cough. Appetite is decreased. Decreased energy level. No headache. No diplopia. No fever or chills. No dysuria. MEDICATIONS: 1. The patient is currently on one-half normal saline with 20 mEq running at 100 mL an hour. 2. The patient also on Lovenox 40 mg subcu daily. 3. She has a sliding-scale insulin coverage. 4. Zofran 4 mg IV q.6 p.r.n. 5. Protonix 40 mg tablet once a day. 6. PHOS-NaK two packets p.o. t.i.d. p.r.n. 7. Spironolactone 25 mg tablet q.a.m. PAST MEDICAL HISTORY: Status post acute kidney injury - hemodynamically-mediated renal dysfunction, hypertension, history of drug abuse, chronic low back pain, history of anxiety and depression, and hyperlipidemia. PAST SURGICAL HISTORY: Status post hysterectomy, status post section. SOCIAL HISTORY: The patient lives in [place]. Unemployed. Two children. No history of smoking, but does have history of use of recreational drugs. Lives with her family. ALLERGIES: NONE. TRAUMA: None. IMMUNIZATIONS: Up-to-date. HOSPITALIZATIONS: Please see past medical history. FAMILY HISTORY: No ESRD. PHYSICAL EXAMINATION: VITAL SIGNS: Blood pressure is 109/63, heart rate 75, respiratory rate 25, and pulse ox 96%. GENERAL: The patient is noted to be awake, alert, comfortable, not in distress, obese. SKIN: Adequate turgor. HEENT: She has pinkish conjunctivae. Anicteric sclerae. NECK: No neck mass. No carotid bruits. No JVD. CHEST: No deformities. LUNGS: Clear breath sounds. HEART: Normal sinus rhythm. No murmurs. No gallops. No rubs. ABDOMEN: Globular, soft, and nontender. No masses. EXTREMITIES: No edema. LABORATORY DATA: Laboratories of September 12, 2019; white count 6.5, hemoglobin 11.8. On September 13, 2019, sodium 134, potassium 2.5, chloride 97, carbon dioxide 27, BUN 4, creatinine 0.63, calcium 7.5, and phosphorus 2.2. Repeat potassium on September 13, 2019 noted at 3.1. Urinalysis of September 10, 2019; specific gravity 1.018, glucose greater than 1000, rbc 0 to 3, wbc 7 to 10, protein is negative. On January 30, 2018, CT scan of the chest, abdomen, and pelvis - showed cholelithiasis. No renal abnormality or no masses noted in the adrenals or kidneys. ASSESSMENT AND PLAN: 1. Hypokalemia, unclear etiology. This could be just decreased intake of potassium with the patient. Please note, an aldosterone level has been obtained and it is currently still pending. 2. Agree with p.r.n. potassium replacement. Change IV fluid to half-normal saline with 40 mEq of potassium and run at 75 mL an hour. A urine potassium will also be checked. 3. Magnesium has already been corrected. 4. We will continue to place this patient on KCl at 40 mEq 2 times a day. 5. Continue supportive care. Job ID: [id number]
[2019-09-13] MEDS: 1/2 NS w/KCL 20 mEq 1,000 ML IV SCH (13:25)
[2019-09-13] MEDS: Ondansetron PF 4 MG/2 ML Vial SLOW IVP PRN ×2 (15:49→21:27)
[2019-09-13] MEDS: Potassium Chloride 20 MEQ TAB PO SCH ×2 (17:14→19:29)
[2019-09-13 18:40] LABS: Potassium 3.1 mmol/L (3.5-5.1)
--- NOTE | 2019-09-13 19:00 | CON ---
DATE OF CONSULTATION: 09/13/2019 REQUESTING PHYSICIAN: Rony Torres MD REASON FOR CONSULTATION: Abdominal pain. HISTORY OF PRESENT ILLNESS: Derick Balbuena is a 54-year-old woman, who was admitted to the hospital 3 days ago. She has a history of hypertension, hyperlipidemia, and spinal stenosis as well as depression. She has a prior history of drug abuse, but no current drug use. She smokes a half pack of cigarettes per day. She denies any current nonsteroidal anti-inflammatory drug use. She says that over the past month or so, she has had chronic daily nausea and daily vomiting at least once a day. This has been nonbloody emesis, progressively she has been feeling worse and worse, having less oral intake, and presented to the hospital 3 days ago, dehydrated and found to be in new onset diabetic ketoacidosis. At presentation, she had mild total bilirubin elevation to 1.3, and an abdominal ultrasound, which suggested distended gallbladder with cholelithiasis, some mild gallbladder thickening and a positive Dallas sign, though normal common bile duct. Lipase has been normal. She was evaluated by Dr. Lopes, who ordered a HIDA scan. This was performed yesterday, and was normal. Dr. Lopes has recommended conservative treatment and consideration of outpatient cholecystectomy in the future. Throughout the hospitalization, the patient's nausea has persisted, though it has improved a bit over the past couple of days. She characterizes her bowel movements as usually normal, but intermittently loose and explosive. There is no melena or hematochezia. She had a C. difficile assay, which was negative. She cannot recall ever having undergone EGD. She does take Nexium 40 mg daily for chronic heartburn symptoms. Nausea and vomiting are the patient's primary complaint. She does endorse some intermittent mild pain in the right upper quadrant and periumbilical area. PAST MEDICAL HISTORY: GERD, hypertension, hyperlipidemia, back pain, spinal stenosis, hysterectomy, , depression, drug abuse with drug overdose in the past, and ongoing tobacco abuse. ALLERGIES: NO KNOWN DRUG ALLERGIES. OUTPATIENT MEDICATIONS: 1. Nexium 40 mg daily. 2. Gabapentin. 3. Potassium chloride. 4. Lisinopril. 5. Cymbalta. FAMILY HISTORY: Noncontributory. SOCIAL HISTORY: The patient does smoke a half pack of cigarettes per day. No current alcohol use. No current drug abuse, though this has been an issue in the past. REVIEW OF SYSTEMS: Full review of systems including constitutional, head, eyes, ears, nose, throat, GI, , cardiovascular, respiratory, musculoskeletal, and neurologic systems are negative except as noted in the HPI. PHYSICAL EXAMINATION: VITAL SIGNS: Pulse 86, blood pressure 149/94, temperature 97.3, and 97% oxygen saturation on room air. GENERAL: A 54-year-old woman, sitting up in bed comfortably, in no distress. SKIN: No jaundice. No rashes were palpable. HEENT: Eyes, no scleral icterus. Extraocular movements intact. ENT, mucous membranes moist. No oral lesions. LYMPH: No submandibular or supraclavicular lymphadenopathy. THYROID: Nontender to palpation. HEART: Regular rate and rhythm. LUNGS: Clear to auscultation bilaterally. ABDOMEN: Bowel sounds present. Soft and nontender to palpation throughout. EXTREMITIES: No peripheral edema. VESSELS: Radial pulses 2+ bilaterally. NEURO: Cranial nerves 2 through 12 intact bilaterally. No focal deficits. LABORATORY STUDIES: WBC 6.5, hemoglobin 11.8, and platelets 220. Beta hydroxybutyrate was elevated to 0.54 on admission. Urine tox screen, negative C. difficile antigen and toxin negative. Sodium 134, potassium 3.1, BUN 4, creatinine 0.63, and glucose 267. Lactic acid initially elevated at 7.8, still elevated to 3.5. Lipase 8, total bilirubin 0.5, direct bilirubin 0.2, alkaline phosphatase 123, AST 12, ALT less than 7, and albumin 2.7. IMAGING STUDIES: Chest x-ray showed some elevation of the right hemidiaphragm, but no acute processes. HIDA scan was normal. 09/10/2019 abdominal ultrasound showed distended gallbladder, some mild gallbladder wall thickening to 4 mm. Multiple small stones and sludge in the gallbladder lumen. Positive Dallas sign, but normal common bile duct 5 mm. ASSESSMENT/PLAN: 1. Nausea and vomiting, chronic over the past month. 2. Chronic intermittent periumbilical/right upper quadrant pain. 3. Cholelithiasis. 4. Diabetic ketoacidosis, with new diagnosis of diabetes. I had a long discussion with the patient regarding her symptoms. The nausea and vomiting are the primary complaint. The differential would include symptomatic cholelithiasis, though I do note the normal HIDA scan as well as normal LFTs and lipase. This could also simply be a manifestation of metabolic disturbance with her diabetic ketoacidosis, and onset of diabetes. She may be developing gastroparesis. Alternatively, consider upper GI mucosal pathology such as gastritis or peptic ulcer disease. It would be reasonable to perform EGD to rule this out. We will plan for diagnostic EGD tomorrow. I do agree with Dr. Lopes's plan to consider cholecystectomy in the near future on an outpatient basis. Otherwise, continue to treat the DKA. This does appear to have improved. Job ID: [id number]
[2019-09-13] MEDS ORDERED: Potassium Chloride 20 MEQ TAB PO SCH (19:15)
[2019-09-13] MEDS ORDERED: Dicyclomine 10 MG CAP PO SCH (19:15)
[2019-09-13] MEDS: Enoxaparin Sodium 40 MG/0.4 ML SYRINGE SC SCH (21:27)
[2019-09-13] MEDS ORDERED: Insulin Glargine 20 UNITS in Pre-Filled Syringe 1 EACH SC SCH (21:30)
[2019-09-13] MEDS: Insulin Glargine 10 UNITS in Pre-Filled Syringe SC SCH (22:10)
[2019-09-14 05:18] LABS: Anion Gap 13 mmol/L (10-20); BUN (Urea Nitrogen) Less than 4 mg/dL (9.8-20.1); Calc. Creatinine Clearance 104 mL/min (70-130); Calcium 8.1 mg/dL (7.8-10.44); Carbon Dioxide 28 mmol/L (22-29); Chloride 101 mmol/L (98-107); Estimated GFR-MDRD 88; Glucose 223 mg/dL (70-105); Magnesium 1.7 mg/dL (1.6-2.6); Phosphorus 3.1 mg/dL (2.3-4.7); Potassium 3.4 mmol/L (3.5-5.1); Sodium 139 mmol/L (136-145)
[2019-09-14] MEDS: Ondansetron PF 4 MG/2 ML Vial SLOW IVP PRN ×3 (06:19→17:15)
--- NOTE | 2019-09-14 09:35 | PRG ---
DATE OF SERVICE: 09/14/2019 SUBJECTIVE: Ms. Balbuena is a 54-year-old white female, who was seen by the Renal Service for her hypokalemia. A spot urine potassium showed a value of 45.3. This suggested that she is probably losing potassium from her urine. She is also being currently potassium repleted. Yesterday, I increased KCl to 40 mEq twice a day. I did review her chemistries and I did note that as far as in 2017 she was already noted to be hypokalemic. My suspicion is that the patient may be hypokalemic, not just to decreased potassium repletion, but may have an underlying either Bartter syndrome or Gitelman syndrome. The patient also was noted to be mildly hypophosphatemic with a phosphorus 2.0. She was also mildly hypomagnesemic. Due to the fact that the patient had no metabolic alkalosis, we could not definitely rule in Bartter syndrome with this patient, although that is our primary differential. Cathi syndrome is also a possibility, but the patient is noted to be normotensive usually. Usually with Cathi syndrome, they tend to be hypertensive. No other complaints today. OBJECTIVE: VITAL SIGNS: Blood pressure is 116/84, heart rate 79, respiratory rate 18, pulse ox 96%, temperature 96.6. GENERAL: Awake, alert, comfortable, not in distress. SKIN: Adequate turgor. HEENT: She has pinkish conjunctivae. Anicteric sclerae. NECK: No neck mass. No carotid bruits. No JVD. CHEST: No deformities. LUNGS: Clear breath sounds. HEART: Normal sinus rhythm. No murmurs, gallops, or rubs. ABDOMEN: Globular, soft, nontender, no masses. EXTREMITIES: No edema, no deformities. MEDICATIONS: Medications of September 14, 2019, was reviewed. LABORATORY DATA: Laboratories of September 12, 2019, hemoglobin 11.8. September 14, 2019, serum sodium was noted at 139, potassium is 3.4, chloride 101, carbon dioxide 28, BUN is less than 4, creatinine 0.69, magnesium is 1.7, phosphorus is 3.1. ASSESSMENT AND PLAN: 1. Chronic hypokalemia, consider Bartter syndrome/Gitelman syndrome-supportive care and continue potassium replacement. Currently on KCl 40 mEq one tablet b.i.d. 2. Mild hypophosphatemia, much improved with p.o. phosphate replacement. 3. Hypomagnesemia-much improved with IV magnesium replacement. Continue supportive care. Recheck base metabolic panel again tomorrow. P.r.n. potassium replacement. Overall, I agree with current management. Job ID: [id number]
[2019-09-14] MEDS ORDERED: Potassium Chloride 20 MEQ in Premix Bag 1 BAG IVPB SCH (10:00)
[2019-09-14] MEDS: Spironolactone 25 MG TAB PO SCH (10:18)
[2019-09-14] MEDS ORDERED: Ondansetron HCl/PF 4 MG/2 ML Vial IVP PRN (14:02)
[2019-09-14] MEDS ORDERED: Promethazine HCl 25 MG/ML VIAL SLOW IVP PRN (14:02)
[2019-09-14] MEDS ORDERED: Promethazine HCl 25 MG/ML VIAL IM PRN (14:02)
[2019-09-14] MEDS ORDERED: Lidocaine 1% PF 5 ML VIAL ONE (16:09)
[2019-09-14] MEDS ORDERED: PROPOFOL 200 MG/20 ML VIAL ONE (16:09)
--- NOTE | 2019-09-14 16:25 | OP ---
DATE OF PROCEDURE: 09/14/2019 PROCEDURE PERFORMED: Esophagogastroduodenoscopy. PREMEDICATION: Given by Anesthesiology Department. PREPROCEDURE DIAGNOSES: Unexplained nausea and vomiting. POSTPROCEDURE DIAGNOSES: 1. Diffuse gastritis with heme staining. 2. Normal esophagus. 3. Normal duodenum. DESCRIPTION OF PROCEDURE: Written consents were obtained prior to procedure. After adequate sedation, the forward-viewing endoscope was advanced down the stomach under direct vision to the second portion duodenum. Both the second portion and the bulb appeared normal. The pylorus was patent. There is diffuse punctate mucosal erythema in congestion noted throughout the distal 2/3rd of the stomach. There was no erosions or ulceration seen. There was diffuse heme staining noted. Biopsies were obtained from the gastric antrum and body. Retroflexion demonstrated normal GE junction. The Z-line was located at 37 cm from the incisors. The lower, mid, and upper esophagus appeared normal. ASSESSMENT: Moderate nonerosive gastritis with diffuse heme staining. RECOMMENDATION: 1. Increase pantoprazole to 40 mg p.o. b.i.d. for now. 2. Await biopsy results. Job ID: [id number]
[2019-09-14] MEDS: Insulin Regular 300 UNITS/3 ML VIAL SC PRN (17:15)
[2019-09-14] MEDS: Potassium Chloride 20 MEQ TAB PO SCH (17:16)
[2019-09-14] MEDS ORDERED: NIFEdipine XL 30 MG TAB PO SCH (18:45)
[2019-09-14] MEDS ORDERED: Potassium Chloride 20 MEQ TAB PO SCH (18:45)
[2019-09-14] MEDS ORDERED: Insulin Glargine 20 UNITS in Pre-Filled Syringe 1 EACH SC SCH (21:00)
[2019-09-14] MEDS ORDERED: Insulin Glargine 25 UNITS in Pre-Filled Syringe 1 EACH SC SCH (21:00)
[2019-09-14] MEDS: Magnesium Oxide 400 MG TAB PO SCH (21:02)
[2019-09-14] MEDS: Enoxaparin Sodium 40 MG/0.4 ML SYRINGE SC SCH (21:04)
[2019-09-14 21:05] VITALS: BP 129/78
[2019-09-15] MEDS: Acetaminophen 325 MG TAB PO PRN (01:35)
[2019-09-15 07:55] LABS: Anion Gap 14 mmol/L (10-20); BUN (Urea Nitrogen) Less than 4 mg/dL (9.8-20.1); Calc. Creatinine Clearance 106 mL/min (70-130); Calcium 8.4 mg/dL (7.8-10.44); Carbon Dioxide 27 mmol/L (22-29); Chloride 102 mmol/L (98-107); Estimated GFR-MDRD 90; Glucose 79 mg/dL (70-105); Magnesium 1.7 mg/dL (1.6-2.6); Potassium 3.9 mmol/L (3.5-5.1); Sodium 139 mmol/L (136-145)
[2019-09-15 07:57] VITALS: TEMP 97.6
--- NOTE | 2019-09-15 08:48 | PRG ---
DATE OF SERVICE: 09/15/2019 SUBJECTIVE: Ms. Balbuena is a 54-year-old white female, seen by the Renal Service for her chronic hypokalemia. 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 She is getting a maintenance potassium supplement. Doing better. No other complaints. In the interim, the patient underwent an upper GI endoscopy yesterday with Dr. Bowman. Finding showed diffuse gastritis. No other complaints today. No chest pain or shortness of breath. OBJECTIVE: VITAL SIGNS: Blood pressure 101/64, heart rate 76, respiratory rate 28, and pulse ox 97%. GENERAL: Noted to be awake, alert, comfortable, not in distress. SKIN: Adequate turgor. HEENT: Pinkish conjunctivae, anicteric sclerae. NECK: No neck mass. No carotid bruits. No JVD. CHEST: No deformities. LUNGS: Clear breath sounds. HEART: Normal sinus rhythm. No murmurs, gallops, or rubs. ABDOMEN: Globular, soft, nontender, no masses. EXTREMITIES: No edema, no deformities. MEDICATIONS: Medications of September 15, 2019, was reviewed. LABORATORY DATA: September 12, 2019, hemoglobin 11.8. September 15, 2019, sodium 139, potassium 3.9, chloride 102, carbon dioxide 27, BUN less than 4, creatinine 0.68, magnesium is 1.7. ASSESSMENT AND PLAN: Chronic hypokalemia. Consider Bartter syndrome. Continue potassium supplementation. Also being supplemented with phosphate due to the mild hypophosphatemia recently. I would suggest we recheck again potassium and phosphorus tomorrow. Job ID: [id number]
[2019-09-15] MEDS ORDERED: NIFEdipine XL 30 MG TAB PO SCH (09:00)
[2019-09-15] MEDS: Magnesium Oxide 400 MG TAB PO SCH (09:36)
[2019-09-15] MEDS: Potassium Chloride 20 MEQ TAB PO SCH (09:36)
[2019-09-15] MEDS: Spironolactone 25 MG TAB PO SCH (09:36)
--- NOTE | 2019-09-21 01:47 | PQF ---
Derick Balbuena VENKAT R MD [id number] CLINICAL DOCUMENTATION CLARIFICATION FORM: POST DISCHARGE Addendum to original discharge summary date: ____ Late entry note date: __ DATE:09/21/2019 ATTN: JOHN WHITNEY MD Please exercise your independent, professional judgment in responding to the clarification form. 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 Thank You. CLINICAL INDICATORS - SIGNS / SYMPTOMS/ LABS are present in the medical record: Abdominal pain nausea and vomiting in H and P report on 09/10/19 by MD Melissa Uribe Found to have severe hypokalemia in H and P report on 09/10/19 by MD Melissa Uribe Found to have new onset DKA in H and P report on 09/10/19 by MD Melissa Uribe Potassium 1.7 On laboratory records 09/10/19 Urine Potassium was 45.3 as per PN 09/14/19 by MD Chance Lucero Concern for Bartter syndrome as per PN 09/14/19 by MD Chance Lucero RISK FACTORS Chronic hypokalemia as per PN on 09/14/19 by MD Chance Lucero TREATMENT Patient was treated with IV KCL 20mEq which was increased to 40 mEq PN on 09/14 by MD Chance Lucero [employer] Lead [employer] Win[employer] Viewer (This form is maintained as a part of the permanent medical record) 2014 [employer]. All Rights Reserved [email or web address] [not provided] MTDD
== END 2019-09-15 12:36 | disposition home or self-care (01) | DRG 643 ==
LOC: ERS 14:47 → ERHOLD 17:08 → IMCU/EMU 22:26
PROVIDERS: ADMIT Internal Medicine; ATTEND Internal Medicine
PROC: 0DB68ZX Excision of Stomach, Via Natural or Artificial Opening Endoscopic, Diagnostic (ICD-10-PCS; principal; 2019-09-14)
DX: E26.81 Bartter's syndrome (principal); E11.10 Type 2 diabetes mellitus with ketoacidosis without coma; E87.6 Hypokalemia; I10 Essential (primary) hypertension; G89.29 Other chronic pain; M54.5 Low back pain; E78.5 Hyperlipidemia, unspecified; Z90.710 Acquired absence of both cervix and uterus; F32.9 Major depressive disorder, single episode, unspecified; F17.290 Nicotine dependence, other tobacco product, uncomplicated; K21.9 Gastro-esophageal reflux disease without esophagitis; M48.00 Spinal stenosis, site unspecified; E83.42 Hypomagnesemia; E83.39 Other disorders of phosphorus metabolism; K29.70 Gastritis, unspecified, without bleeding; K80.50 Calculus of bile duct without cholangitis or cholecystitis without obstruction
CPT/HCPCS: 36415; 36416; 71045; 76705; 78226; 80048; 80053; 80076; 80306; 81003; 81015; 82010; 82088; 82533; 82550; 82553; 83036; 83605; 83690; 83735; 84100; 84132; 84133; 84484; 85025; 87324; 87449; 88305; 88312; 90471; 90686; 90732; 93005; 93010; 96361; 96365; 96366; 96367; 96375; A9537; C9113; G0008; G0009; J0694; J1650; J1815; J2001; J2405; J2704; J3475; J3480; J3490; J7050

== ENCOUNTER 2019-11-29 20:52 | Emergency (ER) | payer SELFPAY ==
[2019-11-29 22:03] LABS: Bilirubin Negative (Negative); Blood, Urine Negative (Negative); Clarity Clear (Clear); Glucose, Urine (Dipstick) Normal (Negative); Leukocyte 500 Leu/uL (Negative); Nitrite 1+ (Negative); Protein, Urine (Dipstick) Negative (Neg-Trace); RBC/HPF 0-3 HPF (0-3); Squamous Epithelial 0-3 HPF (0-3); Urobilinogen Normal mg/dL (Less than 2); WBC/HPF 21-50 HPF (0-3)
[2019-11-29 22:04] LABS: Bacteria/HPF 1+ HPF (None Seen)
[2019-11-29 23:35] LABS: #Basophils 0.1 thou/uL (0.0-0.2); #Eosinphils 0.1 thou/uL (0.0-0.7); #Lymphocytes 3.6 thou/uL (1.20-3.40); #Monocytes 0.9 thou/uL (0.11-0.59); #Neutrophils 5.7 thou/uL (1.40-6.50); %Basophils 0.6 % (0.0-1.0); %Eosinophils 1.1 % (0.0-10.0); %Lymphocytes 34.7 % (21.0-51.0); %Monocytes 8.4 % (0.0-10.0); %Neutrophils 55.1 % (42.0-75.0); Hemoglobin 13.4 g/dL (12.0-16.0); Mean Corpuscular HGB CONC 34.2 g/dL (32.0-36.0); Mean Corpuscular Hemoglobin 30.7 pg (27.0-31.0); Mean Corpuscular Volume 89.8 fL (78.0-98.0); Mean Platelet Volume 6.7 fL (7.4-10.4); Platelet Count 426 thou/uL (130-400); RBC Distribution Width 12.4 % (11.5-14.5); Red Blood Cell (RBC) Count 4.38 mill/uL (4.20-5.40); White Blood Cell (WBC) Count 10.3 thou/uL (4.8-10.8)
[2019-11-29] MEDS ORDERED: Ketorolac Tromethamine 30 MG/ML VIAL ONE (23:50)
[2019-11-29 23:57] LABS: ALT (SGPT) 14 U/L (8-55); AST (SGOT) 13 U/L (5-34); Albumin 4.3 g/dL (3.5-5.0); Alkaline Phosphatase 105 U/L (40-110); Anion Gap 15 mmol/L (10-20); BUN (Urea Nitrogen) 10 mg/dL (9.8-20.1); Bilirubin, Total 0.4 mg/dL (0.2-1.2); Calc. Creatinine Clearance 0 mL/min (70-130); Calcium 9.6 mg/dL (7.8-10.44); Carbon Dioxide 21 mmol/L (22-29); Chloride 102 mmol/L (98-107); Estimated GFR-MDRD 80; Globulin 3.2 g/dL (2.4-3.5); Glucose 143 mg/dL (70-105); Potassium 4.4 mmol/L (3.5-5.1); Protein, Total 7.5 g/dL (6.0-8.3); Sodium 134 mmol/L (136-145)
[2019-11-30] MEDS ORDERED: Acetaminophen 500 MG TAB ONE (01:59)
[2019-11-30] MEDS ORDERED: Phenazopyridine HCl 97.5 MG TABLET ONE ×2 (02:46→02:48)
== END 2019-11-30 02:49 | disposition home or self-care (01) ==
LOC: ERS 20:52
DX: N39.0 Urinary tract infection, site not specified (principal); I10 Essential (primary) hypertension; F32.9 Major depressive disorder, single episode, unspecified; F17.210 Nicotine dependence, cigarettes, uncomplicated; Z79.899 Other long term (current) drug therapy
CPT/HCPCS: 36415; 80053; 81003; 81015; 85025; 87086; 96365; 96375; J1885; J1956

== ENCOUNTER 2020-03-05 10:27 | Emergency (ER) | payer OTHER, SELFPAY ==
[2020-03-05] MEDS ORDERED: Ketorolac Tromethamine 30 MG/ML VIAL ONE (10:58)
[2020-03-05 11:16] LABS: #Basophils 0.1 thou/uL (0.0-0.2); #Eosinphils 0.1 thou/uL (0.0-0.7); #Lymphocytes 1.5 thou/uL (1.20-3.40); #Monocytes 0.7 thou/uL (0.11-0.59); #Neutrophils 5.5 thou/uL (1.40-6.50); %Eosinophils 0.8 % (0.0-10.0); %Lymphocytes 19.5 % (21.0-51.0); %Monocytes 9.1 % (0.0-10.0); %Neutrophils 69.6 % (42.0-75.0); Hemoglobin 13.5 g/dL (12.0-16.0); Mean Corpuscular HGB CONC 32.4 g/dL (32.0-36.0); Mean Corpuscular Hemoglobin 29.9 pg (27.0-31.0); Mean Corpuscular Volume 92.2 fL (78.0-98.0); Mean Platelet Volume 7.8 fL (7.4-10.4); Platelet Count 354 thou/uL (130-400); RBC Distribution Width 12.8 % (11.5-14.5); Red Blood Cell (RBC) Count 4.52 mill/uL (4.20-5.40); White Blood Cell (WBC) Count 7.9 thou/uL (4.8-10.8)
[2020-03-05 11:17] LABS: Bilirubin Negative (Negative); Blood, Urine Negative (Negative); Clarity Clear (Clear); Glucose, Urine (Dipstick) >=1000 mg/dL (Negative); Leukocyte 500 Leu/uL (Negative); Nitrite Negative (Negative); Protein, Urine (Dipstick) Negative (Neg-Trace); Squamous Epithelial 0-3 HPF (0-3); Transitional Epithelial 0-3 HPF (None Seen); Urobilinogen Normal mg/dL (Less than 2); WBC/HPF Greater than 50 HPF (0-3)
[2020-03-05 11:19] LABS: Bacteria/HPF 1+ HPF (None Seen)
[2020-03-05 11:37] LABS: ALT (SGPT) 17 U/L (8-55); AST (SGOT) 17 U/L (5-34); Albumin 4.3 g/dL (3.5-5.0); Alkaline Phosphatase 106 U/L (40-110); Anion Gap 15 mmol/L (10-20); BUN (Urea Nitrogen) 18 mg/dL (9.8-20.1); Bilirubin, Total 0.4 mg/dL (0.2-1.2); Calc. Creatinine Clearance 0 mL/min (70-130); Calcium 9.6 mg/dL (7.8-10.44); Carbon Dioxide 19 mmol/L (22-29); Chloride 98 mmol/L (98-107); Estimated GFR-MDRD 65; Globulin 3.2 g/dL (2.4-3.5); Glucose 265 mg/dL (70-105); Potassium 5.1 mmol/L (3.5-5.1); Protein, Total 7.5 g/dL (6.0-8.3); Sodium 127 mmol/L (136-145)
[2020-03-05] MEDS ORDERED: HYDROcodone/Acetaminophen 10/325 mg Tablet ONE (12:47)
[2020-03-05] MEDS ORDERED: Levofloxacin 500 mg/D5W 100 ml Premix Bag ONE (13:24)
== END 2020-03-05 14:35 | disposition home or self-care (01) ==
LOC: ERS 10:27
DX: N39.0 Urinary tract infection, site not specified (principal); I10 Essential (primary) hypertension; F17.210 Nicotine dependence, cigarettes, uncomplicated; F32.9 Major depressive disorder, single episode, unspecified; Z79.899 Other long term (current) drug therapy
CPT/HCPCS: 80053; 81003; 81015; 85025; 96365; 96375; J1885; J1956

== ENCOUNTER 2020-05-10 17:50 | Emergency (ER) | payer SELFPAY | END 2020-05-10 19:18 | disposition left against medical advice (07) | LOC: ERS 17:50 | DX: Z53.21 Procedure and treatment not carried out due to patient leaving prior to being seen by health care provider (principal) ==

== ENCOUNTER 2020-05-24 18:07 | Emergency (ER) | payer OTHER, SELFPAY ==
--- NOTE | 2020-05-24 19:01 | RAD ---
XR Chest 1 View Portable History: Cough Comparison: Radiograph August 2019 Findings: Lungs are clear. No pneumothorax. No effusion. Cardiac silhouette is similar. No acute osse ous abnormality Impression: No acute intrathoracic abnormality.
[2020-05-24 19:43] LABS: #Basophils 0.1 thou/uL (0.0-0.2); #Eosinphils 0.2 thou/uL (0.0-0.7); #Lymphocytes 2.8 thou/uL (1.20-3.40); #Neutrophils 8.7 thou/uL (1.40-6.50); %Basophils 0.9 % (0.0-1.0); %Eosinophils 1.3 % (0.0-10.0); %Lymphocytes 21.8 % (21.0-51.0); %Monocytes 7.7 % (0.0-10.0); %Neutrophils 68.2 % (42.0-75.0); Hemoglobin 12.9 g/dL (12.0-16.0); Mean Corpuscular HGB CONC 33.5 g/dL (32.0-36.0); Mean Corpuscular Hemoglobin 31.2 pg (27.0-31.0); Mean Corpuscular Volume 93.2 fL (78.0-98.0); Platelet Count 311 thou/uL (130-400); Red Blood Cell (RBC) Count 4.13 mill/uL (4.20-5.40); White Blood Cell (WBC) Count 12.8 thou/uL (4.8-10.8)
[2020-05-24 20:08] LABS: ALT (SGPT) 15 U/L (8-55); AST (SGOT) 13 U/L (5-34); Albumin 3.7 g/dL (3.5-5.0); Alkaline Phosphatase 116 U/L (40-110); Anion Gap 13 mmol/L (10-20); BUN (Urea Nitrogen) 8 mg/dL (9.8-20.1); Bilirubin, Total 0.4 mg/dL (0.2-1.2); Calc. Creatinine Clearance 0 mL/min (70-130); Calcium 8.9 mg/dL (7.8-10.44); Carbon Dioxide 20 mmol/L (22-29); Chloride 105 mmol/L (98-107); Estimated GFR-MDRD 89; Globulin 2.7 g/dL (2.4-3.5); Glucose 201 mg/dL (70-105); Lipase 9 U/L (8-78); Potassium 3.9 mmol/L (3.5-5.1); Protein, Total 6.4 g/dL (6.0-8.3); Sodium 134 mmol/L (136-145)
[2020-05-24] MEDS ORDERED: Ondansetron PF 4 MG/2 ML Vial ONE (20:57)
[2020-05-24] MEDS ORDERED: Morphine 4 MG/ML VIAL ONE (20:57)
[2020-05-24 21:30] LABS: Bacteria/HPF None Seen HPF (None Seen); Bilirubin Negative (Negative); Blood, Urine Negative (Negative); Clarity Clear (Clear); Glucose, Urine (Dipstick) Normal (Negative); Ketone, Urine Negative (Negative); Leukocyte 25 Leu/uL (Negative); Nitrite Negative (Negative); Protein, Urine (Dipstick) Negative (Neg-Trace); RBC/HPF 0-3 HPF (0-3); Specific Gravity, Urine 1.006 (1.002-1.036); Squamous Epithelial 0-3 HPF (0-3); Urobilinogen Normal mg/dL (Less than 2); WBC/HPF 0-3 HPF (0-3)
[2020-05-25 14:51] LABS: SARS-CoV-2 MS2 Positive; SARS-CoV-2 N Gene Negative; SARS-CoV-2 S Gene Negative; SARS-CoV-2 orf1ab Negative
== END 2020-05-24 22:30 | disposition home or self-care (01) ==
LOC: ERS 18:07
DX: J06.9 Acute upper respiratory infection, unspecified (principal); M54.9 Dorsalgia, unspecified; Z20.828 Contact with and (suspected) exposure to other viral communicable diseases; I10 Essential (primary) hypertension; F32.9 Major depressive disorder, single episode, unspecified; F17.210 Nicotine dependence, cigarettes, uncomplicated
CPT/HCPCS: 36415; 71045; 80053; 81003; 81015; 83690; 85025; 87081; 87086; 87430; 87635; 93005; 96361; 96374; 96375; J2270; J2405; U0003

== ENCOUNTER 2021-01-18 10:27 | Emergency (ER) | payer MEDICAID, OTHER ==
[2021-01-18 11:22] LABS: Bacteria/HPF None Seen HPF (None Seen); Bilirubin Negative (Negative); Blood, Urine Negative (Negative); Clarity Clear (Clear); Glucose, Urine (Dipstick) Normal (Negative); Ketone, Urine Negative (Negative); Leukocyte 500 Leu/uL (Negative); Nitrite Negative (Negative); Protein, Urine (Dipstick) Negative (Neg-Trace); RBC/HPF 0-3 HPF (0-3); Specific Gravity, Urine 1.005 (1.002-1.036); Squamous Epithelial 0-3 HPF (0-3); Urobilinogen Normal mg/dL (Less than 2); WBC/HPF 21-50 HPF (0-3); pH, Urine 5.5 (5.0-9.0)
[2021-01-18 11:24] LABS: #Basophils 0.1 thou/uL (0.0-0.2); #Eosinphils 0.2 thou/uL (0.0-0.7); #Lymphocytes 2.7 thou/uL (1.20-3.40); #Monocytes 0.8 thou/uL (0.11-0.59); %Basophils 1.5 % (0.0-1.0); %Eosinophils 2.7 % (0.0-10.0); %Lymphocytes 33.8 % (21.0-51.0); %Monocytes 10.6 % (0.0-10.0); %Neutrophils 51.5 % (42.0-75.0); Hemoglobin 14.1 g/dL (12.0-16.0); Mean Corpuscular HGB CONC 33.6 g/dL (32.0-36.0); Mean Corpuscular Volume 92.1 fL (78.0-98.0); Mean Platelet Volume 7.3 fL (7.4-10.4); Platelet Count 373 thou/uL (130-400); RBC Distribution Width 12.6 % (11.5-14.5); Red Blood Cell (RBC) Count 4.53 mill/uL (4.20-5.40); White Blood Cell (WBC) Count 7.8 thou/uL (4.8-10.8)
[2021-01-18] MEDS ORDERED: Ketorolac Tromethamine 30 MG/ML VIAL ONE (11:28)
[2021-01-18 11:48] LABS: ALT (SGPT) 10 U/L (8-55); AST (SGOT) 12 U/L (5-34); Albumin 4.3 g/dL (3.5-5.0); Alkaline Phosphatase 111 U/L (40-110); Anion Gap 14 mmol/L (10-20); BUN (Urea Nitrogen) 9 mg/dL (9.8-20.1); Bilirubin, Total 0.2 mg/dL (0.2-1.2); Calc. Creatinine Clearance 0 mL/min (70-130); Calcium 9.3 mg/dL (7.8-10.44); Carbon Dioxide 21 mmol/L (22-29); Chloride 105 mmol/L (98-107); Globulin 2.9 g/dL (2.4-3.5); Glucose 127 mg/dL (70-105); Lipase 20 U/L (8-78); Potassium 4.3 mmol/L (3.5-5.1); Protein, Total 7.2 g/dL (6.0-8.3); Sodium 136 mmol/L (136-145)
[2021-01-18] MEDS ORDERED: Iopamidol-370 76% 500 ML 1 ML ONE (11:54)
--- NOTE | 2021-01-18 12:53 | CT ---
CT ABDOMEN WITH CONTRAST CT PELVIS WITH CONTRAST: DATE: 01/18/2021 HISTORY: 55-year-old female with lower abdominal pain and UTI with dysuria, hesitancy, and urgency with body a ches COMPARISON: 01/30/2018 TECHNIQUE: IV injection of iodinated contrast media: administered. Oral contrast media:Not administered FINDINGS: Again noted is the thin layer of high density material along the dependent portion of the gallbladder lumen. Gallbladder is somewhat distended, but there is no mural thickening or pericholecystic fluid. The kidneys, adrenals, liver, pancreas, and spleen, demonstrate no obvious major pathology. Lung bases are clear. No small bowel dilation, ascites, pneumoperitoneum, abscess, or signs of colonic diverticulitis. Urinary bladder is normal, with normal, thin jay. Appendix not identified with certainty Multilevel high-grade degenerative disc disease throughout lower thoracic spine and lumbar spine. S-shaped lateral curvature. High-grade facet DJD causing grade 1 anterolisthesis of L3 on L4 and L4 on L5. Bilateral L4-5 facet joints are ankylosed. IMPRESSION: 1) no acute findings. 2) thin layer of hyperdense gallbladder sludge versus tiny gallstones (gravel). 3) high-grade thoracic and lumbar spondylosis
== END 2021-01-18 13:08 | disposition home or self-care (01) ==
LOC: ERS 10:27
DX: N39.0 Urinary tract infection, site not specified (principal); E11.9 Type 2 diabetes mellitus without complications; I10 Essential (primary) hypertension; F17.210 Nicotine dependence, cigarettes, uncomplicated; Z79.899 Other long term (current) drug therapy; Z79.84 Long term (current) use of oral hypoglycemic drugs
CPT/HCPCS: 36415; 74177; 80053; 81003; 81015; 83690; 85025; 87086; 96372; J1885; Q9967

== ENCOUNTER 2021-04-22 11:44 | Emergency (ER) | payer MEDICAID, OTHER ==
[2021-04-22] MEDS ORDERED: Ondansetron PF 4 MG/2 ML Vial ONE (11:51)
[2021-04-22] MEDS ORDERED: Ketorolac Tromethamine 30 MG/ML VIAL ONE (12:18)
[2021-04-22 12:40] LABS: #Basophils 0.1 thou/uL (0.0-0.2); #Eosinphils 0.1 thou/uL (0.0-0.7); #Lymphocytes 2.1 thou/uL (1.20-3.40); #Monocytes 0.8 thou/uL (0.11-0.59); #Neutrophils 5.2 thou/uL (1.40-6.50); %Basophils 1.5 % (0.0-1.0); %Eosinophils 0.7 % (0.0-10.0); %Lymphocytes 25.2 % (21.0-51.0); %Monocytes 9.2 % (0.0-10.0); %Neutrophils 63.3 % (42.0-75.0); Hemoglobin 14.4 g/dL (12.0-16.0); Mean Corpuscular HGB CONC 33.8 g/dL (32.0-36.0); Mean Corpuscular Hemoglobin 31.8 pg (27.0-31.0); Mean Corpuscular Volume 93.9 fL (78.0-98.0); Platelet Count 432 thou/uL (130-400); Red Blood Cell (RBC) Count 4.55 mill/uL (4.20-5.40); White Blood Cell (WBC) Count 8.1 thou/uL (4.8-10.8)
[2021-04-22 12:45] LABS: BHCG - Serum Negative (NEGATIVE); Pregs Control Background? CLEAR/WHITE (CLR/WHITE); Pregs Control Bar Appear? YES (CONTROL BAR)
[2021-04-22 12:54] LABS: Bilirubin Negative (Negative); Blood, Urine Negative (Negative); Clarity Clear (Clear); Glucose, Urine (Dipstick) 100 mg/dL (Negative); Ketone, Urine Negative (Negative); Leukocyte 500 Leu/uL (Negative); Nitrite Negative (Negative); Protein, Urine (Dipstick) Negative (Neg-Trace); Specific Gravity, Urine 1.007 (1.002-1.036); Urobilinogen Normal mg/dL (Less than 2); WBC/HPF 21-50 HPF (0-3)
[2021-04-22 12:58] LABS: ALT (SGPT) 8 U/L (8-55); AST (SGOT) 9 U/L (5-34); Albumin 4.2 g/dL (3.5-5.0); Alkaline Phosphatase 93 U/L (40-110); Anion Gap 17 mmol/L (10-20); BUN (Urea Nitrogen) 6 mg/dL (9.8-20.1); Bilirubin, Total 0.3 mg/dL (0.2-1.2); CK (CPK) 19 U/L (29-168); Calc. Creatinine Clearance 0 mL/min (70-130); Calcium 9.7 mg/dL (7.8-10.44); Carbon Dioxide 18 mmol/L (22-29); Chloride 108 mmol/L (98-107); Globulin 3.1 g/dL (2.4-3.5); Glucose 111 mg/dL (70-105); Potassium 3.5 mmol/L (3.5-5.1); Protein, Total 7.3 g/dL (6.0-8.3); Sodium 139 mmol/L (136-145)
[2021-04-22 13:16] LABS: Bacteria/HPF 1+ HPF (None Seen)
[2021-04-22] MEDS ORDERED: Morphine 4 MG/ML VIAL ONE (13:53)
== END 2021-04-22 14:51 | disposition home or self-care (01) ==
LOC: ERS 11:44
DX: K80.80 Other cholelithiasis without obstruction (principal); E10.9 Type 1 diabetes mellitus without complications; I10 Essential (primary) hypertension; F17.210 Nicotine dependence, cigarettes, uncomplicated; Z79.899 Other long term (current) drug therapy
CPT/HCPCS: 36416; 74176; 76705; 80053; 81003; 81015; 82550; 83690; 84703; 85025; 87086; 96374; 96375; J1885; J2270; J2405

== ENCOUNTER 2021-07-12 10:52 | Day surgery (SDC) | payer OTHER ==
[2021-07-10 13:49] VITALS: BMI 24.0
[2021-07-12] MEDS ORDERED: Acetaminophen 500 MG TAB ONE (11:11)
[2021-07-12] MEDS ORDERED: Ketorolac Tromethamine 30 MG/ML VIAL ONE (11:11)
[2021-07-12] MEDS ORDERED: Fentanyl 100 MCG/2 ML VIAL ONE (15:26)
[2021-07-12] MEDS ORDERED: SUGAMMADEX SODIUM 200 MG/2 ML VIAL ONE (15:26)
[2021-07-12] MEDS ORDERED: Famotidine/PF 20 mg/2ml Vial ONE (15:26)
[2021-07-12] MEDS ORDERED: Lidocaine 1% w/Epinephrine 1:100K 20 ML VIAL ONE (15:28)
[2021-07-12] MEDS ORDERED: Bupivacaine 0.25% HCL 30 ML VIAL ONE (15:28)
[2021-07-12] MEDS ORDERED: Rocuronium Bromide 10 MG/ML (10ML VIAL) ONE (15:42)
[2021-07-12] MEDS ORDERED: Lidocaine 1% PF 5 ML VIAL ONE (15:42)
[2021-07-12] MEDS ORDERED: ePHEDrine 50 MG/ML VIAL ONE (15:42)
[2021-07-12] MEDS ORDERED: Labetalol HCl 100 MG/20 ML VIAL ONE (15:42)
[2021-07-12] MEDS ORDERED: PROPOFOL 200 MG/20 ML VIAL ONE (15:42)
[2021-07-12] MEDS ORDERED: Metoclopramide HCl 10 MG/2 ML VIAL ONE (15:42)
[2021-07-12] MEDS ORDERED: HYDROcodone/Acetaminophen 5/325 mg Tablet ONE (18:09)
== END 2021-07-12 18:30 | disposition home or self-care (01) ==
LOC: EDBD → SDC 10:52
PROVIDERS: ATTEND Surgery
PROC: BF101ZZ Fluoroscopy of Bile Ducts using Low Osmolar Contrast (ICD-10-PCS; principal; 2021-07-12)
PROC: 0FT44ZZ Resection of Gallbladder, Percutaneous Endoscopic Approach (ICD-10-PCS; principal; 2021-07-12)
DX: K80.10 Calculus of gallbladder with chronic cholecystitis without obstruction (principal); K66.0 Peritoneal adhesions (postprocedural) (postinfection); E11.9 Type 2 diabetes mellitus without complications; I10 Essential (primary) hypertension; Z79.4 Long term (current) use of insulin; Z79.899 Other long term (current) drug therapy
CPT/HCPCS: 36416; 88304; J0690; J1885; J2704; J2765; J3010; J3490; S0020; S0028

== ENCOUNTER 2021-12-07 14:18 | Emergency (ER) | payer OTHER ==
[2021-12-07 15:38] LABS: #Basophils 0.1 thou/uL (0.0-0.2); #Eosinphils 0.1 thou/uL (0.0-0.7); #Lymphocytes 3.8 thou/uL (1.20-3.40); #Monocytes 1.3 thou/uL (0.11-0.59); #Neutrophils 12.8 thou/uL (1.40-6.50); %Basophils 0.8 % (0.0-1.0); %Eosinophils 0.6 % (0.0-10.0); %Lymphocytes 21.1 % (21.0-51.0); %Neutrophils 70.5 % (42.0-75.0); Hemoglobin 13.8 g/dL (12.0-16.0); Mean Corpuscular HGB CONC 32.3 g/dL (32.0-36.0); Mean Corpuscular Hemoglobin 31.7 pg (27.0-31.0); Mean Corpuscular Volume 97.9 fL (78.0-98.0); Mean Platelet Volume 6.6 fL (7.4-10.4); Platelet Count 517 thou/uL (130-400); RBC Distribution Width 12.4 % (11.5-14.5); Red Blood Cell (RBC) Count 4.35 mill/uL (4.20-5.40); White Blood Cell (WBC) Count 18.1 thou/uL (4.8-10.8)
[2021-12-07 15:57] LABS: ALT (SGPT) 11 U/L (8-55); AST (SGOT) 11 U/L (5-34); Albumin 4.1 g/dL (3.5-5.0); Alkaline Phosphatase 108 U/L (40-110); Anion Gap 18 mmol/L (10-20); BUN (Urea Nitrogen) 9 mg/dL (9.8-20.1); Bilirubin, Total 0.2 mg/dL (0.2-1.2); CK (CPK) 29 U/L (29-168); Calc. Creatinine Clearance 0 mL/min (70-130); Calcium 9.3 mg/dL (7.8-10.44); Carbon Dioxide 21 mmol/L (22-29); Chloride 105 mmol/L (98-107); Globulin 3.2 g/dL (2.4-3.5); Glucose 127 mg/dL (70-105); Potassium 3.6 mmol/L (3.5-5.1); Protein, Total 7.3 g/dL (6.0-8.3); Sodium 140 mmol/L (136-145)
[2021-12-07] MEDS ORDERED: Lorazepam 2 MG/ML VIAL ONE (16:43)
[2021-12-07 17:16] LABS: Bacteria/HPF 1+ HPF (None Seen); Bilirubin Negative (Negative); Blood, Urine Negative (Negative); Clarity Clear (Clear); Glucose, Urine (Dipstick) Normal (Negative); Ketone, Urine Negative (Negative); Leukocyte 250 Leu/uL (Negative); Nitrite Negative (Negative); Protein, Urine (Dipstick) 30 mg/dL (Neg-Trace); RBC/HPF 0-3 HPF (0-3); Specific Gravity, Urine 1.032 (1.002-1.036); Squamous Epithelial 0-3 HPF (0-3); WBC/HPF 21-50 HPF (0-3)
== END 2021-12-07 17:28 | disposition home or self-care (01) ==
LOC: ERS 14:18
DX: R25.1 Tremor, unspecified (principal); I10 Essential (primary) hypertension; E10.9 Type 1 diabetes mellitus without complications; F17.210 Nicotine dependence, cigarettes, uncomplicated; Z79.84 Long term (current) use of oral hypoglycemic drugs; Z79.899 Other long term (current) drug therapy; Z79.4 Long term (current) use of insulin
CPT/HCPCS: 36415; 80053; 81003; 81015; 82550; 85025; 87086; 93005; 96372; J2060

== ENCOUNTER 2022-03-19 13:39 | Observation (INO) | payer OTHER ==
[~2022-03-19 13:39] MED LIST: Iopamidol-370 76% 500 ML 1 ML ONE
[2022-03-19 14:35] LABS: Bilirubin Negative (Negative); Blood, Urine Negative (Negative); Clarity Clear (Clear); Glucose, Urine (Dipstick) Normal (Negative); Ketone, Urine Negative (Negative); Leukocyte 75 Leu/uL (Negative); Nitrite Negative (Negative); Protein, Urine (Dipstick) Negative (Neg-Trace); RBC/HPF 0-3 HPF (0-3); Specific Gravity, Urine 1.006 (1.002-1.036); Squamous Epithelial 0-3 HPF (0-3); Urobilinogen Normal mg/dL (Less than 2); WBC/HPF 0-3 HPF (0-3)
[2022-03-19 14:36] LABS: Bacteria/HPF Rare-Few HPF (None Seen)
[2022-03-19 14:40] LABS: #Basophils 0.1 thou/uL (0.0-0.2); #Eosinphils 0.2 thou/uL (0.0-0.7); #Lymphocytes 3.2 thou/uL (1.20-3.40); #Monocytes 1.2 thou/uL (0.11-0.59); #Neutrophils 6.3 thou/uL (1.40-6.50); %Basophils 0.9 % (0.0-1.0); %Eosinophils 1.5 % (0.0-10.0); %Lymphocytes 29.3 % (21.0-51.0); %Monocytes 10.9 % (0.0-10.0); %Neutrophils 57.2 % (42.0-75.0); Hemoglobin 13.3 g/dL (12.0-16.0); Mean Corpuscular HGB CONC 33.4 g/dL (32.0-36.0); Mean Corpuscular Hemoglobin 31.8 pg (27.0-31.0); Mean Corpuscular Volume 95.2 fL (78.0-98.0); Mean Platelet Volume 7.4 fL (7.4-10.4); Platelet Count 389 thou/uL (130-400); RBC Distribution Width 11.9 % (11.5-14.5); Red Blood Cell (RBC) Count 4.17 mill/uL (4.20-5.40)
[2022-03-19] MEDS ORDERED: Morphine 4 MG/ML VIAL ONE (15:10)
[2022-03-19] MEDS ORDERED: Ondansetron PF 4 MG/2 ML Vial ONE (15:10)
[2022-03-19 15:12] LABS: ALT (SGPT) 10 U/L (8-55); AST (SGOT) 12 U/L (5-34); Albumin 4.4 g/dL (3.5-5.0); Alkaline Phosphatase 104 U/L (40-110); Anion Gap 14 mmol/L (10-20); BUN (Urea Nitrogen) 14 mg/dL (9.8-20.1); Bilirubin, Total 0.3 mg/dL (0.2-1.2); Calc. Creatinine Clearance 0 mL/min (70-130); Calcium 9.5 mg/dL (7.8-10.44); Carbon Dioxide 22 mmol/L (22-29); Chloride 101 mmol/L (98-107); Globulin 2.8 g/dL (2.4-3.5); Glucose 120 mg/dL (70-105); Lipase 17 U/L (8-78); Protein, Total 7.2 g/dL (6.0-8.3); Sodium 133 mmol/L (136-145)
[2022-03-19] MEDS ORDERED: cefTRIAXone\\ROCEPHIN 2 GM VIAL ONE (18:08)
[2022-03-19] MEDS ORDERED: Sodium Chloride 0.9% 1,000 ML IV SCH (19:45)
[2022-03-19 19:53] LABS: Lactic Acid 1.7 mmol/L (0.5-2.2)
[2022-03-19] MEDS ORDERED: Dextrose 50% Abboject 50 ML SYRINGE SLOW IVP PRN (22:01)
[2022-03-19] MEDS ORDERED: Bisacodyl 5 MG TAB PO PRN (22:01)
[2022-03-19] MEDS ORDERED: Acetaminophen 325 MG TAB PO PRN (22:01)
[2022-03-19] MEDS ORDERED: HumaLOG 300 UNITS/3 ML VIAL SC PRN ×2 (22:01)
[2022-03-19] MEDS ORDERED: Guaifenesin DM 100-10/5 ML UDCUP PO PRN (22:01)
[2022-03-19] MEDS ORDERED: HYDROcodone/Acetaminophen 5/325 mg Tablet PO PRN (22:01)
[2022-03-19] MEDS ORDERED: Dextrose 5% in Water 1,000 ML IV PRN (22:01)
[2022-03-19] MEDS ORDERED: Senokot S 8.6-50 MG TAB PO PRN (22:01)
[2022-03-19] MEDS ORDERED: Ondansetron PF 4 MG/2 ML Vial IVP PRN (22:01)
[2022-03-19] MEDS ORDERED: Pantoprazole 40 MG VIAL IVP SCH (22:05)
[2022-03-19] MEDS ORDERED: Enoxaparin Sodium 40 MG/0.4 ML SYRINGE SC SCH (22:15)
[2022-03-19] MEDS ORDERED: Melatonin 3 MG TAB PO PRN (23:12)
[2022-03-19] MEDS ORDERED: hydrALAZINE 20 MG/ML VIAL SLOW IVP PRN (23:12)
[2022-03-19] MEDS: HYDROcodone/Acetaminophen 7.5/325 mg Tablet PO PRN (23:19)
[2022-03-19] MEDS: Sodium Chloride 0.9% 1,000 ML IV SCH (23:20)
[2022-03-20 00:01] VITALS: BMI 28.2
[2022-03-20] MEDS: Phenazopyridine HCl 100 MG TAB PO PRN ×2 (02:36→10:34)
[2022-03-20 05:59] LABS: #Basophils 0.1 thou/uL (0.0-0.2); #Eosinphils 0.2 thou/uL (0.0-0.7); #Lymphocytes 3.4 thou/uL (1.20-3.40); #Monocytes 0.8 thou/uL (0.11-0.59); #Neutrophils 3.2 thou/uL (1.40-6.50); %Basophils 1.2 % (0.0-1.0); %Eosinophils 3.2 % (0.0-10.0); %Lymphocytes 44.1 % (21.0-51.0); %Monocytes 10.8 % (0.0-10.0); %Neutrophils 40.8 % (42.0-75.0); Hemoglobin 11.5 g/dL (12.0-16.0); Mean Corpuscular HGB CONC 32.6 g/dL (32.0-36.0); Mean Corpuscular Volume 98.1 fL (78.0-98.0); Mean Platelet Volume 7.1 fL (7.4-10.4); Platelet Count 318 thou/uL (130-400); Red Blood Cell (RBC) Count 3.59 mill/uL (4.20-5.40); White Blood Cell (WBC) Count 7.7 thou/uL (4.8-10.8)
[2022-03-20] MEDS: HYDROcodone/Acetaminophen 7.5/325 mg Tablet PO PRN ×2 (06:07→10:35)
[2022-03-20 06:16] LABS: Hemoglobin A1c 5.7 % (4.0-6.0)
[2022-03-20 06:38] LABS: ALT (SGPT) 7 U/L (8-55); AST (SGOT) 10 U/L (5-34); Albumin 3.5 g/dL (3.5-5.0); Alkaline Phosphatase 85 U/L (40-110); Anion Gap 16 mmol/L (10-20); BUN (Urea Nitrogen) 13 mg/dL (9.8-20.1); Bilirubin, Total 0.2 mg/dL (0.2-1.2); Calc. Creatinine Clearance 76 mL/min (70-130); Calcium 8.6 mg/dL (7.8-10.44); Carbon Dioxide 17 mmol/L (22-29); Cardiac Risk 2.6 (Less than 4.5); Chloride 111 mmol/L (98-107); Cholesterol 105 mg/dl (< 200 Desired); Globulin 2.2 g/dL (2.4-3.5); Glucose 130 mg/dL (70-105); HDL Cholesterol 41 mg/dL (>60 Neg Risk); LDL Cholesterol, Calculated 51 mg/dL; Potassium 4.5 mmol/L (3.5-5.1); Protein, Total 5.7 g/dL (6.0-8.3); Sodium 139 mmol/L (136-145); Triglycerides 64 mg/dL (Less than 150)
[2022-03-20] MEDS: clonazePAM 1 MG TAB PO SCH ×2 (08:37→08:41)
[2022-03-20] MEDS ORDERED: Pantoprazole 40 MG VIAL IVP SCH (09:00)
[2022-03-20] MEDS ORDERED: Gabapentin 300 MG CAP PO SCH (09:00)
[2022-03-20] MEDS: Sodium Chloride 0.9% 1,000 ML IV SCH (11:40)
[2022-03-20 11:51] VITALS: BP 128/81; TEMP 97.3
[2022-03-20 12:20] LABS: SARS-CoV-2 PCR by NAA Not Detected (NotDetected)
[2022-03-20] MEDS ORDERED: Enoxaparin Sodium 40 MG/0.4 ML SYRINGE SC SCH (21:00)
[2022-03-20] MEDS ORDERED: cefTRIAXone\\ROCEPHIN 1 GM in Sodium Chloride 0.9% 100 ML IVPB SCH (22:00)
== END 2022-03-20 12:18 | disposition home or self-care (01) ==
LOC: ERS 13:39 → T4-A 17:49
PROVIDERS: ADMIT Internal Medicine; ATTEND Internal Medicine
DX: N39.0 Urinary tract infection, site not specified (principal); E11.10 Type 2 diabetes mellitus with ketoacidosis without coma; I10 Essential (primary) hypertension; F17.210 Nicotine dependence, cigarettes, uncomplicated; G89.29 Other chronic pain; M54.9 Dorsalgia, unspecified; Z79.4 Long term (current) use of insulin; Z79.84 Long term (current) use of oral hypoglycemic drugs; Z79.899 Other long term (current) drug therapy; Z20.822 Contact with and (suspected) exposure to COVID-19
CPT/HCPCS: 36415; 36416; 74177; 80053; 80061; 81003; 81015; 83036; 83605; 83690; 85025; 87040; 87086; 87480; 87510; 87660; 96365; 96372; 96375; 96376; C9113; G0378; J0696; J1650; J2270; J2405; J7050; Q9967; U0003; U0005

== ENCOUNTER 2022-06-08 09:57 | Emergency (ER) | payer OTHER ==
[2022-06-08] MEDS ORDERED: Ketorolac Tromethamine 30 MG/ML VIAL ONE (10:49)
== END 2022-06-08 11:07 | disposition left against medical advice (07) ==
LOC: ERS 09:57
DX: R07.81 Pleurodynia (principal); E10.9 Type 1 diabetes mellitus without complications; I10 Essential (primary) hypertension; F17.210 Nicotine dependence, cigarettes, uncomplicated; Z79.84 Long term (current) use of oral hypoglycemic drugs; Z79.899 Other long term (current) drug therapy; Z79.4 Long term (current) use of insulin
CPT/HCPCS: 96372; 99283; J1885

== ENCOUNTER 2022-06-11 16:42 | Emergency (ER) | payer OTHER | END 2022-06-11 20:14 | disposition home or self-care (01) | LOC: ERS 16:42 | DX: S06.0X0A Concussion without loss of consciousness, initial encounter (principal); S20.213A Contusion of bilateral front wall of thorax, initial encounter; F17.210 Nicotine dependence, cigarettes, uncomplicated; E10.9 Type 1 diabetes mellitus without complications; I10 Essential (primary) hypertension; Z79.84 Long term (current) use of oral hypoglycemic drugs; Z79.899 Other long term (current) drug therapy; W18.2XXA Fall in (into) shower or empty bathtub, initial encounter | CPT/HCPCS: 36416; 70450; 71250; 72125; 93005 ==

== ENCOUNTER 2022-08-10 16:46 | Emergency (ER) | payer OTHER ==
[2022-08-10 17:19] LABS: #Lymphocytes 1.6 thou/uL (1.20-3.40); #Monocytes 0.3 thou/uL (0.11-0.59); #Neutrophils 5.8 thou/uL (1.40-6.50); %Basophils 0.4 % (0.0-1.0); %Eosinophils 0.2 % (0.0-10.0); %Monocytes 4.2 % (0.0-10.0); %Neutrophils 74.3 % (42.0-75.0); Hemoglobin 16.4 g/dL (12.0-16.0); Mean Corpuscular HGB CONC 33.8 g/dL (32.0-36.0); Mean Corpuscular Hemoglobin 31.6 pg (27.0-31.0); Mean Corpuscular Volume 93.7 fL (78.0-98.0); Platelet Count 431 thou/uL (130-400); RBC Distribution Width 13.1 % (11.5-14.5); Red Blood Cell (RBC) Count 5.19 mill/uL (4.20-5.40); White Blood Cell (WBC) Count 7.8 thou/uL (4.8-10.8)
[2022-08-10 17:34] LABS: ALT (SGPT) 23 U/L (8-55); AST (SGOT) 16 U/L (5-34); Albumin 4.5 g/dL (3.5-5.0); Alkaline Phosphatase 131 U/L (40-110); Anion Gap 16 mmol/L (10-20); BUN (Urea Nitrogen) 23 mg/dL (9.8-20.1); Bilirubin, Total 0.4 mg/dL (0.2-1.2); Calc. Creatinine Clearance 0 mL/min (70-130); Calcium 9.7 mg/dL (7.8-10.44); Carbon Dioxide 17 mmol/L (22-29); Chloride 101 mmol/L (98-107); Estimated GFR 74; Globulin 3.2 g/dL (2.4-3.5); Glucose 205 mg/dL (70-105); Lipase 19 U/L (8-78); Potassium 5.1 mmol/L (3.5-5.1); Protein, Total 7.7 g/dL (6.0-8.3); Sodium 129 mmol/L (136-145)
[2022-08-10] MEDS ORDERED: cefTRIAXone\\ROCEPHIN 2 GM VIAL ONE (17:50)
[2022-08-10 17:52] LABS: Bilirubin Negative (Negative); Blood, Urine Negative (Negative); Clarity Clear (Clear); Glucose, Urine (Dipstick) Normal (Negative); Ketone, Urine Negative (Negative); Leukocyte Negative Leu/uL (Negative); Nitrite Negative (Negative); Protein, Urine (Dipstick) Negative (Neg-Trace); Specific Gravity, Urine 1.016 (1.002-1.036); Urobilinogen Normal mg/dL (Less than 2)
[2022-08-10] MEDS ORDERED: Acetaminophen 500 MG TAB ONE (18:09)
[2022-08-10] MEDS ORDERED: Phenazopyridine HCl 100 MG TAB PO SCH (18:15)
[2022-08-10] MEDS ORDERED: Vancomycin 1 GM/200 ML BAG ONE (18:39)
[2022-08-10] MEDS ORDERED: Metoclopramide HCl 10 MG/2 ML VIAL ONE (18:42)
[2022-08-10] MEDS ORDERED: Loperamide HCl 2 MG CAP PO PRN (21:15)
[2022-08-10] MEDS ORDERED: Nicotine 14 MG PATCH TD SCH (21:15)
[2022-08-10] MEDS ORDERED: HumaLOG 300 UNITS/3 ML VIAL SC PRN ×2 (21:15)
[2022-08-10] MEDS ORDERED: Dextrose 5% in Water 1,000 ML IV PRN (21:15)
[2022-08-10] MEDS ORDERED: HYDROcodone/Acetaminophen 5/325 mg Tablet PO PRN (21:15)
[2022-08-10] MEDS ORDERED: Ondansetron PF 4 MG/2 ML Vial IVP PRN (21:15)
[2022-08-10] MEDS ORDERED: Dextrose 50% Abboject 50 ML SYRINGE SLOW IVP PRN (21:15)
[2022-08-10] MEDS ORDERED: Zolpidem Tartrate 5 MG TAB PO PRN (21:15)
[2022-08-10] MEDS ORDERED: Acetaminophen 325 MG TAB PO PRN (21:15)
[2022-08-10] MEDS ORDERED: Sodium Chloride 0.9% 1,000 ML IV SCH (21:15)
[2022-08-10] MEDS ORDERED: Morphine 2 MG/ML VIAL SLOW IVP PRN (21:19)
[2022-08-11] MEDS ORDERED: Enoxaparin Sodium 30 MG/0.3 ML SYRINGE SC SCH (09:00)
[2022-08-11] MEDS ORDERED: DULoxetine 60 MG CAP PO SCH (09:00)
[2022-08-11] MEDS ORDERED: Famotidine 20 MG TAB PO SCH (09:00)
[2022-08-11] MEDS ORDERED: Gabapentin 300 MG CAP PO SCH (09:00)
[2022-08-11] MEDS ORDERED: clonazePAM 1 MG TAB PO SCH (09:00)
== END 2022-08-10 20:59 | disposition left against medical advice (07) ==
LOC: ERS 16:46
DX: E87.1 Hypo-osmolality and hyponatremia (principal); I95.9 Hypotension, unspecified; N39.0 Urinary tract infection, site not specified; I44.7 Left bundle-branch block, unspecified; I10 Essential (primary) hypertension; E10.9 Type 1 diabetes mellitus without complications; F17.210 Nicotine dependence, cigarettes, uncomplicated; Z79.84 Long term (current) use of oral hypoglycemic drugs; Z79.899 Other long term (current) drug therapy
CPT/HCPCS: 36415; 80053; 81003; 83605; 83690; 85025; 87040; 87086; 93005; 94760; J0696; J2765; J3370

== ENCOUNTER 2022-08-10 21:21 | Observation (INO) | payer OTHER ==
[2022-08-10] MEDS ORDERED: Zolpidem Tartrate 5 MG TAB PO PRN (21:58)
[2022-08-10] MEDS ORDERED: Loperamide HCl 2 MG CAP PO PRN (21:58)
[2022-08-10] MEDS ORDERED: HumaLOG 300 UNITS/3 ML VIAL SC PRN ×2 (21:58)
[2022-08-10] MEDS ORDERED: Acetaminophen 325 MG TAB PO PRN (21:58)
[2022-08-10] MEDS ORDERED: HYDROcodone/Acetaminophen 5/325 mg Tablet PO PRN (21:58)
[2022-08-10] MEDS ORDERED: Dextrose 50% Abboject 50 ML SYRINGE SLOW IVP PRN (21:58)
[2022-08-10] MEDS ORDERED: Dextrose 5% in Water 1,000 ML IV PRN (21:58)
[2022-08-10] MEDS ORDERED: Nicotine 21 MG PATCH TD SCH (22:00)
[2022-08-10] MEDS ORDERED: Sodium Chloride 0.9% 1,000 ML IV SCH (22:15)
[2022-08-11] MEDS: Sodium Chloride 0.9% 1,000 ML IV SCH ×2 (00:25→04:23)
[2022-08-11 00:33] VITALS: BMI 21.4
[2022-08-11 03:39] VITALS: BP 109/61; TEMP 97.3
[2022-08-11 06:41] LABS: #Basophils 0.1 thou/uL (0.0-0.2); #Eosinphils 0.1 thou/uL (0.0-0.7); #Lymphocytes 3.9 thou/uL (1.20-3.40); #Monocytes 1.1 thou/uL (0.11-0.59); #Neutrophils 3.1 thou/uL (1.40-6.50); %Eosinophils 1.3 % (0.0-10.0); %Lymphocytes 47.7 % (21.0-51.0); %Monocytes 12.7 % (0.0-10.0); %Neutrophils 37.3 % (42.0-75.0); Hemoglobin 12.2 g/dL (12.0-16.0); Mean Corpuscular HGB CONC 32.6 g/dL (32.0-36.0); Mean Corpuscular Hemoglobin 30.9 pg (27.0-31.0); Mean Corpuscular Volume 94.7 fL (78.0-98.0); Mean Platelet Volume 7.1 fL (7.4-10.4); Platelet Count 324 thou/uL (130-400); Red Blood Cell (RBC) Count 3.94 mill/uL (4.20-5.40); White Blood Cell (WBC) Count 8.2 thou/uL (4.8-10.8)
[2022-08-11 06:43] LABS: Anion Gap 13 mmol/L (10-20); BUN (Urea Nitrogen) 16 mg/dL (9.8-20.1); Calc. Creatinine Clearance 73 mL/min (70-130); Calcium 8.5 mg/dL (7.8-10.44); Carbon Dioxide 18 mmol/L (22-29); Chloride 110 mmol/L (98-107); Estimated GFR 89; Glucose 126 mg/dL (70-105); Potassium 3.8 mmol/L (3.5-5.1); Sodium 137 mmol/L (136-145)
[2022-08-11] MEDS ORDERED: Famotidine 20 MG TAB PO SCH (09:00)
[2022-08-11] MEDS ORDERED: Enoxaparin Sodium 30 MG/0.3 ML SYRINGE SC SCH (09:00)
[2022-08-11] MEDS ORDERED: Gabapentin 300 MG CAP PO SCH (09:00)
[2022-08-11] MEDS ORDERED: DULoxetine 60 MG CAP PO SCH (09:00)
== END 2022-08-11 06:55 | disposition left against medical advice (07) ==
LOC: ERS 21:21 → T4-B 21:58
PROVIDERS: ADMIT Internal Medicine; ATTEND Internal Medicine
DX: E86.0 Dehydration (principal); R19.7 Diarrhea, unspecified; E87.1 Hypo-osmolality and hyponatremia; I95.2 Hypotension due to drugs; E11.9 Type 2 diabetes mellitus without complications; F17.210 Nicotine dependence, cigarettes, uncomplicated; I10 Essential (primary) hypertension; Z53.29 Procedure and treatment not carried out because of patient's decision for other reasons; Z79.4 Long term (current) use of insulin; Z79.84 Long term (current) use of oral hypoglycemic drugs; Z79.899 Other long term (current) drug therapy; Z20.822 Contact with and (suspected) exposure to COVID-19; I95.9 Hypotension, unspecified; N39.0 Urinary tract infection, site not specified
CPT/HCPCS: 36415; 36416; 51701; 80053; 81003; 83605; 83690; 85025; 87040; 87086; 93005; 94760; 96360; 96361; 96374; 96375; 99285; G0378; J0696; J2765; J3370; J7050; U0003; U0005

== ENCOUNTER 2022-08-19 09:45 | Outpatient (CLI) | payer OTHER | END 2022-08-19 09:46 | disposition home or self-care (01) | LOC: BICMRI 09:45 | PROVIDERS: ATTEND Family Medicine | DX: M47.26 Other spondylosis with radiculopathy, lumbar region (principal); M43.16 Spondylolisthesis, lumbar region; M96.1 Postlaminectomy syndrome, not elsewhere classified; M48.061 Spinal stenosis, lumbar region without neurogenic claudication; M48.07 Spinal stenosis, lumbosacral region | CPT/HCPCS: 72120; 72148 ==

== ENCOUNTER 2022-08-19 09:47 | Outpatient (CLI) | payer OTHER | END 2022-08-19 09:48 | disposition home or self-care (01) | LOC: BICULT 09:47 | PROVIDERS: ATTEND Nurse Practitioner Family | DX: N39.0 Urinary tract infection, site not specified (principal); M47.26 Other spondylosis with radiculopathy, lumbar region; M43.16 Spondylolisthesis, lumbar region; M96.1 Postlaminectomy syndrome, not elsewhere classified; M48.061 Spinal stenosis, lumbar region without neurogenic claudication; M48.07 Spinal stenosis, lumbosacral region | CPT/HCPCS: 72120; 72148; 76770 ==

== ENCOUNTER 2022-09-29 09:58 | Outpatient (CLI) | payer OTHER | END 2022-09-29 09:59 | disposition home or self-care (01) | LOC: RAD-FRANK 09:58 | PROVIDERS: ATTEND Nurse Practitioner Family | DX: M25.571 Pain in right ankle and joints of right foot (principal); M19.071 Primary osteoarthritis, right ankle and foot ==

== ENCOUNTER 2022-12-02 17:07 | Emergency (ER) | payer OTHER ==
[2022-12-02] MEDS ORDERED: Ondansetron PF 4 MG/2 ML Vial ONE (18:01)
[2022-12-02 18:40] LABS: #Lymphocytes 1.5 thou/uL (1.20-3.40); #Neutrophils 11.6 thou/uL (1.40-6.50); %Basophils 0.1 % (0.0-1.0); %Eosinophils 0.1 % (0.0-10.0); %Lymphocytes 10.5 % (21.0-51.0); %Monocytes 6.8 % (0.0-10.0); %Neutrophils 82.5 % (42.0-75.0); Hemoglobin 15.2 g/dL (12.0-16.0); Mean Corpuscular HGB CONC 32.6 g/dL (32.0-36.0); Mean Corpuscular Hemoglobin 30.5 pg (27.0-31.0); Mean Corpuscular Volume 93.7 fl (78.0-98.0); Mean Platelet Volume 7.5 fL (7.4-10.4); Platelet Count 361 10x3/uL (130-400); RBC Distribution Width 11.9 % (11.5-14.5); Red Blood Cell (RBC) Count 4.99 mill/uL (4.20-5.40); White Blood Cell (WBC) Count 14.1 10x3/uL (4.8-10.8)
[2022-12-02 19:32] LABS: ALT (SGPT) 19 U/L (8-55); AST (SGOT) 20 U/L (5-34); Albumin 4.7 g/dL (3.5-5.0); Alkaline Phosphatase 115 U/L (40-110); Anion Gap 20 mmol/L (10-20); BUN (Urea Nitrogen) 20 mg/dL (9.8-20.1); Bilirubin, Total 0.6 mg/dL (0.2-1.2); Calc. Creatinine Clearance 0 mL/min (70-130); Calcium 9.8 mg/dL (7.8-10.44); Carbon Dioxide 16 mmol/L (22-29); Chloride 109 mmol/L (98-107); Estimated GFR 79; Glucose 185 mg/dL (70-105); Lipase 10 U/L (8-78); Potassium 3.9 mmol/L (3.5-5.1); Protein, Total 7.7 g/dL (6.0-8.3); Sodium 141 mmol/L (136-145)
[2022-12-02] MEDS ORDERED: Promethazine HCl 25 MG in Sodium Chloride 0.9% 50 ML IVPB SCH (19:45)
== END 2022-12-02 20:59 | disposition home or self-care (01) ==
LOC: ERS 17:07
DX: R11.2 Nausea with vomiting, unspecified (principal); I10 Essential (primary) hypertension; F17.210 Nicotine dependence, cigarettes, uncomplicated; E10.9 Type 1 diabetes mellitus without complications; Z79.4 Long term (current) use of insulin
CPT/HCPCS: 36415; 80053; 83605; 83690; 84484; 85025; 93005; 96374; 96375; J2405; J2550

== ENCOUNTER 2023-01-02 10:56 | Inpatient (IN) | payer OTHER ==
[2023-01-02 12:00] LABS: Hemoglobin 14.1 g/dL (12.0-16.0); Mean Corpuscular HGB CONC 33.2 g/dL (32.0-36.0); Mean Corpuscular Hemoglobin 31.2 pg (27.0-31.0); Mean Corpuscular Volume 94.2 fl (78.0-98.0); Mean Platelet Volume 7.8 fL (7.4-10.4); Platelet Count 344 10x3/uL (130-400); RBC Distribution Width 12.4 % (11.5-14.5); Red Blood Cell (RBC) Count 4.51 mill/uL (4.20-5.40); White Blood Cell (WBC) Count 9.5 10x3/uL (4.8-10.8)
[2023-01-02 12:01] LABS: ALT (SGPT) 19 U/L (8-55); AST (SGOT) 21 U/L (5-34); Albumin 3.9 g/dL (3.5-5.0); Alkaline Phosphatase 108 U/L (40-110); Anion Gap 16 mmol/L (10-20); BUN (Urea Nitrogen) 6 mg/dL (9.8-20.1); Bilirubin, Total 0.3 mg/dL (0.2-1.2); Calc. Creatinine Clearance 0 mL/min (70-130); Calcium 9.5 mg/dL (7.8-10.44); Carbon Dioxide 22 mmol/L (22-29); Chloride 104 mmol/L (98-107); Estimated GFR 103; Globulin 2.3 g/dL (2.4-3.5); Glucose 138 mg/dL (70-105); Lipase 14 U/L (8-78); Magnesium 1.7 mg/dL (1.6-2.6); Potassium 4.6 mmol/L (3.5-5.1); Protein, Total 6.2 g/dL (6.0-8.3); Sodium 137 mmol/L (136-145)
[2023-01-02 12:40] LABS: Eosinophils 2 % (0-10); Lymphocytes 29 % (21-51); MDiff Complete? YES; Monocytes 12 % (0-10); Neutrophil 55 % (42-75); Ovalocytes SLIGHT = 2-5 cells (100X) (0-1/hpf); Platelet Morphology Comment Appears Adequate; Polychromasia SLIGHT = 2-3 cells (100X) (0-2/hpf); Reactive Lymphocytes 2 % (0-10)
[2023-01-02] MEDS ORDERED: tiZANidine HCl 4 MG TAB PO PRN (14:26)
[2023-01-02] MEDS ORDERED: Ondansetron PF 4 MG/2 ML Vial IVP PRN (14:27)
[2023-01-02] MEDS ORDERED: Acetaminophen 325 MG TAB PO PRN (14:27)
[2023-01-02] MEDS ORDERED: Senokot S 8.6-50 MG TAB PO PRN (14:27)
[2023-01-02] MEDS ORDERED: Calcium Carbonate 500 MG ChewTAB PO PRN (14:27)
[2023-01-02] MEDS ORDERED: Ipratropium/Albuterol 3 ML NEB NEB PRN (14:30)
[2023-01-02] MEDS ORDERED: Morphine 4 MG/ML VIAL ONE ×2 (14:50→15:24)
[2023-01-02] MEDS ORDERED: Aspirin 325 MG TAB ONE (14:50)
[2023-01-02] MEDS ORDERED: Ondansetron PF 4 MG/2 ML Vial ONE (14:50)
[2023-01-02 14:59] LABS: Troponin I Less than 0.010 ng/mL (< 0.028)
[2023-01-02] MEDS ORDERED: hydrALAZINE 20 MG/ML VIAL SLOW IVP PRN (17:11)
[2023-01-02 17:22] VITALS: BMI 26.3
[2023-01-02] MEDS: Gabapentin 300 MG CAP PO SCH ×2 (17:33→21:06)
[2023-01-02] MEDS: Nicotine 21 MG PATCH TD SCH (17:34)
[2023-01-02] MEDS: HYDROcodone/Acetaminophen 5/325 mg Tablet PO PRN (17:46)
[2023-01-02 18:20] LABS: Troponin I Less than 0.010 ng/mL (< 0.028)
[2023-01-02] MEDS: clonazePAM 1 MG TAB PO SCH (21:09)
[2023-01-02] MEDS: HumuLIN 70/30 (300 UNITS/3 ML VIAL) SC SCH (21:10)
[2023-01-03] MEDS: Morphine 2 MG/ML VIAL SLOW IVP PRN ×3 (03:58→13:42)
[2023-01-03 04:00] LABS: Hemoglobin 13.1 g/dL (12.0-16.0); Mean Corpuscular HGB CONC 33.2 g/dL (32.0-36.0); Mean Corpuscular Hemoglobin 31.8 pg (27.0-31.0); Mean Corpuscular Volume 95.6 fl (78.0-98.0); Mean Platelet Volume 7.5 fL (7.4-10.4); Platelet Count 317 10x3/uL (130-400); RBC Distribution Width 12.5 % (11.5-14.5); Red Blood Cell (RBC) Count 4.14 mill/uL (4.20-5.40); White Blood Cell (WBC) Count 8.6 10x3/uL (4.8-10.8)
[2023-01-03 04:18] LABS: ALT (SGPT) 17 U/L (8-55); AST (SGOT) 13 U/L (5-34); Albumin 3.5 g/dL (3.5-5.0); Alkaline Phosphatase 95 U/L (40-110); Anion Gap 13 mmol/L (10-20); BUN (Urea Nitrogen) 7 mg/dL (9.8-20.1); Bilirubin, Total 0.2 mg/dL (0.2-1.2); Calc. Creatinine Clearance 77 mL/min (70-130); Calcium 9.3 mg/dL (7.8-10.44); Carbon Dioxide 25 mmol/L (22-29); Cardiac Risk 2.8 (Less than 4.5); Chloride 103 mmol/L (98-107); Cholesterol 141 mg/dl (< 200 Desired); Estimated GFR 90; Globulin 2.4 g/dL (2.4-3.5); Glucose 142 mg/dL (70-105); HDL Cholesterol 51 mg/dL (>60 Neg Risk); LDL Cholesterol, Calculated 80 mg/dL; Potassium 3.9 mmol/L (3.5-5.1); Protein, Total 5.9 g/dL (6.0-8.3); Sodium 137 mmol/L (136-145); Triglycerides 51 mg/dL (Less than 150)
[2023-01-03 04:19] LABS: Hemoglobin A1c 6.4 % (4.0-6.0)
[2023-01-03 04:29] LABS: Band 1 % (5-11); Eosinophils 4 % (0-10); Lymphocytes 61 % (21-51); MDiff Complete? YES; Monocytes 5 % (0-10); Neutrophil 29 % (42-75)
[2023-01-03] MEDS: clonazePAM 1 MG TAB PO SCH (08:48)
[2023-01-03] MEDS: HumuLIN 70/30 (300 UNITS/3 ML VIAL) SC SCH ×2 (09:00→22:27)
[2023-01-03] MEDS ORDERED: Regadenoson 0.4 MG/5 ML SYRINGE ONE (13:29)
[2023-01-03] MEDS: Aspirin 81 mg Enteric Coated Tablet PO SCH (13:41)
[2023-01-03] MEDS: Gabapentin 300 MG CAP PO SCH ×3 (13:43→22:25)
[2023-01-03] MEDS: DULoxetine 60 MG CAP PO SCH (13:43)
[2023-01-03] MEDS: Lisinopril 10 MG TAB PO SCH (13:45)
[2023-01-03] MEDS ORDERED: Loperamide HCl 2 MG CAP PO PRN (13:49)
[2023-01-03] MEDS: Nicotine 21 MG PATCH TD SCH (15:32)
[2023-01-03] MEDS: HYDROcodone/Acetaminophen 5/325 mg Tablet PO PRN (15:39)
[2023-01-03] MEDS: clonazePAM 1 MG TAB PO PRN (17:01)
[2023-01-03] MEDS: Atorvastatin Calcium 40 MG TAB PO SCH (22:26)
[2023-01-04] MEDS: Morphine 2 MG/ML VIAL SLOW IVP PRN ×3 (03:35→17:36)
[2023-01-04 05:18] LABS: Anion Gap 12 mmol/L (10-20); BUN (Urea Nitrogen) 10 mg/dL (9.8-20.1); Calc. Creatinine Clearance 84 mL/min (70-130); Calcium 9.1 mg/dL (7.8-10.44); Carbon Dioxide 28 mmol/L (22-29); Chloride 104 mmol/L (98-107); Estimated GFR 100; Glucose 124 mg/dL (70-105); Magnesium 1.9 mg/dL (1.6-2.6); Potassium 3.8 mmol/L (3.5-5.1); Sodium 140 mmol/L (136-145)
[2023-01-04] MEDS ORDERED: Communication Order-Pharmacy FS PRN (08:30)
[2023-01-04] MEDS: DULoxetine 60 MG CAP PO SCH (09:22)
[2023-01-04] MEDS: Gabapentin 300 MG CAP PO SCH ×3 (09:22→20:46)
[2023-01-04] MEDS: Aspirin 81 mg Enteric Coated Tablet PO SCH (09:22)
[2023-01-04] MEDS: HumuLIN 70/30 (300 UNITS/3 ML VIAL) SC SCH ×2 (09:23→21:00)
[2023-01-04] MEDS: Lisinopril 10 MG TAB PO SCH (09:33)
[2023-01-04] MEDS: HYDROcodone/Acetaminophen 5/325 mg Tablet PO PRN (13:25)
[2023-01-04] MEDS: Nicotine 21 MG PATCH TD SCH (14:32)
[2023-01-04] MEDS: clonazePAM 1 MG TAB PO PRN (15:02)
[2023-01-04 15:38] LABS: Amphetamine Not Detected (NotDetected); Barbiturates Screen Not Detected (NotDetected); Benzodiazepine Screen Not Detected (NotDetected); Cocaine Metabolite Screen Not Detected (NotDetected); Methadone Not Detected (NotDetected); Methamphetamine Not Detected (NotDetected); Opiate Screen Detected (NotDetected); Oxycodone Screen Not Detected (NotDetected); Phencyclidine (PCP) Not Detected (NotDetected); THC/Cannabinoid Screen Not Detected (NotDetected); Tricyclic Screen Not Detected (NotDetected)
[2023-01-04] MEDS: Atorvastatin Calcium 40 MG TAB PO SCH (20:46)
[2023-01-04] MEDS ORDERED: HYDROcodone/Acetaminophen 5/325 mg Tablet PO PRN (21:04)
[2023-01-05] MEDS: Morphine 2 MG/ML VIAL SLOW IVP PRN (02:41)
[2023-01-05 05:18] LABS: Anion Gap 13 mmol/L (10-20); BUN (Urea Nitrogen) 10 mg/dL (9.8-20.1); Calc. Creatinine Clearance 89 mL/min (70-130); Carbon Dioxide 24 mmol/L (22-29); Chloride 106 mmol/L (98-107); Estimated GFR 101; Glucose 141 mg/dL (70-105); Magnesium 1.8 mg/dL (1.6-2.6); Potassium 3.7 mmol/L (3.5-5.1); Sodium 139 mmol/L (136-145)
[2023-01-05] MEDS: clonazePAM 1 MG TAB PO PRN (05:35)
[2023-01-05] MEDS: Sodium Chloride 0.9% 1,000 ML IV SCH ×2 (05:36→15:07)
[2023-01-05] MEDS ORDERED: Lidocaine 1% (PF) 30 ML VIAL ONE (07:55)
[2023-01-05] MEDS ORDERED: Midazolam HCl 2 mg/2 ml Vial ONE (08:15)
[2023-01-05] MEDS ORDERED: Heparin 10,000 UNITS/ 10 ML VIAL ONE (08:15)
[2023-01-05] MEDS ORDERED: FENTANYL 50 MCG/ML 1 ML VIAL ONE (08:15)
[2023-01-05] MEDS ORDERED: Protamine Sulfate 50 MG/5 ML VIAL ONE (08:52)
[2023-01-05] MEDS ORDERED: Sodium Chloride 0.9% 200 ML IV PRN (08:56)
[2023-01-05] MEDS ORDERED: Acetaminophen/Codeine 30-300mg Tablet PO PRN ×2 (08:56)
[2023-01-05] MEDS ORDERED: Iopamidol 370 76% 100 ML VIAL ONE (09:27)
[2023-01-05] MEDS: Gabapentin 300 MG CAP PO SCH (10:50)
[2023-01-05] MEDS: Lisinopril 10 MG TAB PO SCH (10:51)
[2023-01-05] MEDS: DULoxetine 60 MG CAP PO SCH (10:51)
[2023-01-05] MEDS: Aspirin 81 mg Enteric Coated Tablet PO SCH (10:51)
[2023-01-05 12:21] VITALS: BP 124/68; TEMP 97.4
== END 2023-01-05 15:08 | disposition home or self-care (01) | DRG 287 ==
LOC: ERS 10:56 → SUATTDRO 10:56 → 2NO 14:30
PROVIDERS: ADMIT Internal Medicine; ATTEND Internal Medicine
PROC: 4A023N7 Measurement of Cardiac Sampling and Pressure, Left Heart, Percutaneous Approach (ICD-10-PCS; principal; 2023-01-05)
PROC: B2111ZZ Fluoroscopy of Multiple Coronary Arteries using Low Osmolar Contrast (ICD-10-PCS; 2023-01-05)
PROC: B2151ZZ Fluoroscopy of Left Heart using Low Osmolar Contrast (ICD-10-PCS; 2023-01-05)
DX: R07.89 Other chest pain (principal); I25.10 Atherosclerotic heart disease of native coronary artery without angina pectoris; Z20.822 Contact with and (suspected) exposure to COVID-19; G89.29 Other chronic pain; F17.210 Nicotine dependence, cigarettes, uncomplicated; I10 Essential (primary) hypertension; E11.9 Type 2 diabetes mellitus without complications; F39 Unspecified mood [affective] disorder; E03.9 Hypothyroidism, unspecified; I44.7 Left bundle-branch block, unspecified; F41.9 Anxiety disorder, unspecified; E78.00 Pure hypercholesterolemia, unspecified; Z98.890 Other specified postprocedural states; Z71.6 Tobacco abuse counseling; Z79.899 Other long term (current) drug therapy; Z79.4 Long term (current) use of insulin; Z79.82 Long term (current) use of aspirin; Z82.49 Family history of ischemic heart disease and other diseases of the circulatory system
CPT/HCPCS: 36415; 36416; 71045; 78452; 80048; 80053; 80061; 80306; 83036; 83690; 83735; 84436; 84443; 84484; 85025; 85347; 93005; 93017; 93458; 94760; 96374; 96375; 96376; 99152; A9500; C1769; J1644; J1650; J2001; J2250; J2270; J2272; J2405; J2720; J2785; J3010; J7050; Q9967; U0003; U0005

== ENCOUNTER 2023-02-23 08:27 | Outpatient (CLI) | payer OTHER | END 2023-02-23 08:28 | disposition home or self-care (01) | LOC: BICRAD 08:27 | PROVIDERS: ATTEND Physician Assistant | DX: M54.50 Low back pain, unspecified (principal); R29.6 Repeated falls; M48.01 Spinal stenosis, occipito-atlanto-axial region; M47.816 Spondylosis without myelopathy or radiculopathy, lumbar region | CPT/HCPCS: 72100 ==

== ENCOUNTER 2023-02-23 09:22 | Outpatient (CLI) | payer OTHER ==
[2023-02-23 10:49] LABS: Hemoglobin 12.4 g/dL (12.0-15.5); Mean Corpuscular HGB CONC 32.7 g/dL (32.0-36.0); Mean Corpuscular Hemoglobin 29.8 pg (27.0-33.0); Mean Corpuscular Volume 91.1 fl (81.6-98.3); Mean Platelet Volume 9.8 fl (7.4-10.4); Platelet Count 359 10x3/uL (150-450); RBC Distribution Width 13.6 % (11.5-14.5); Red Blood Cell (RBC) Count 4.16 10x6/uL (3.90-5.03)
[2023-02-23 10:55] LABS: Anion Gap 16 mmol/L (10-20); BUN (Urea Nitrogen) 22 mg/dL (9.8-20.1); Calc. Creatinine Clearance 0 mL/min (70-130); Calcium 8.8 mg/dL (7.8-10.44); Carbon Dioxide 21 mmol/L (22-29); Chloride 100 mmol/L (98-107); Estimated GFR 79; Glucose 87 mg/dL (70-105); Potassium 5.8 mmol/L (3.5-5.1); Sodium 131 mmol/L (136-145)
[2023-02-23 10:57] LABS: INR-International Normal Ratio 0.9; PTT 30.6 sec (22.0-33.0); Prothrombin Time 9.8 sec (9.5-12.1)
== END 2023-02-23 09:23 | disposition home or self-care (01) ==
LOC: LABBT 09:22
PROVIDERS: ATTEND Surgery
DX: Z01.818 Encounter for other preprocedural examination (principal); M48.062 Spinal stenosis, lumbar region with neurogenic claudication; M54.16 Radiculopathy, lumbar region; M54.50 Low back pain, unspecified; R29.6 Repeated falls; M48.01 Spinal stenosis, occipito-atlanto-axial region; M47.816 Spondylosis without myelopathy or radiculopathy, lumbar region
CPT/HCPCS: 72100; 80048; 85027; 85610; 85730; 93005; 93010

== ENCOUNTER 2023-02-26 07:53 | Inpatient (IN) | payer OTHER ==
[2023-02-25 09:49] VITALS: BMI 26.4
[2023-02-26 09:26] LABS: Potassium 4.5 mmol/L (3.5-5.1)
[2023-02-26] MEDS ORDERED: Sodium Chloride 0.9% 100 ML ONE (10:36)
[2023-02-26] MEDS ORDERED: CEFAZOLIN 2 GM VIAL ONE (10:36)
[2023-02-26] MEDS ORDERED: Vancomycin 1 GM VIAL ONE (10:48)
[2023-02-26] MEDS ORDERED: Thrombin 5000 UNITS/5 ML VIAL ONE (10:48)
[2023-02-26] MEDS ORDERED: Fentanyl 250 MCG/5 ML VIAL ONE (12:09)
[2023-02-26] MEDS ORDERED: Dexmedetomidine 200 MCG/2 ML VIAL ONE (12:09)
[2023-02-26] MEDS ORDERED: Esmolol 100 MG/10 ML VIAL ONE (12:17)
[2023-02-26] MEDS ORDERED: PROPOFOL 200 MG/20 ML VIAL ONE (12:17)
[2023-02-26] MEDS ORDERED: Metoclopramide HCl 10 MG/2 ML VIAL ONE (12:17)
[2023-02-26] MEDS ORDERED: Lidocaine 1% PF 5 ML VIAL ONE (12:17)
[2023-02-26] MEDS ORDERED: GLYCOPYRROLATE/PF 0.2 MG/ML VIAL ONE (12:17)
[2023-02-26] MEDS ORDERED: Rocuronium Bromide 10 MG/ML (10ML VIAL) ONE (12:17)
[2023-02-26] MEDS ORDERED: ePHEDrine Sulfate 50 MG/10 ML VIAL ONE (12:17)
[2023-02-26] MEDS ORDERED: Dexamethasone 20 MG/5 ML VIAL ONE (12:17)
[2023-02-26] MEDS ORDERED: NEOSTIGMINE 3 MG/3 ML SYR 3 MG/3 ML SYRINGE ONE (12:17)
[2023-02-26] MEDS ORDERED: Ketorolac Tromethamine 30 MG/ML VIAL ONE (12:17)
[2023-02-26] MEDS ORDERED: PACU-Morphine 4MG/ML VIAL SLOW IVP PRN (14:23)
[2023-02-26] MEDS ORDERED: HYDROmorphone 2 MG/ML VIAL SLOW IVP PRN (14:23)
[2023-02-26] MEDS ORDERED: Morphine Sulfate 2 MG/ML SYRINGE SLOW IVP PRN (14:23)
[2023-02-26] MEDS ORDERED: Ondansetron HCl/PF 4 MG/2 ML Vial IVP PRN (14:23)
[2023-02-26] MEDS ORDERED: Promethazine HCl 25 MG/ML VIAL IM PRN (14:23)
[2023-02-26] MEDS ORDERED: Acetaminophen/Codeine 30-300mg Tablet PO PRN (15:29)
[2023-02-26] MEDS ORDERED: Ondansetron PF 4 MG/2 ML Vial IVP PRN (15:29)
[2023-02-26] MEDS ORDERED: diphenhydrAMINE 25 MG CAP PO PRN (15:29)
[2023-02-26] MEDS ORDERED: Acetaminophen 325 MG TAB PO PRN (15:29)
[2023-02-26] MEDS ORDERED: hydrALAZINE 20 MG/ML VIAL SLOW IVP PRN (15:34)
[2023-02-26] MEDS ORDERED: HYDROmorphone 2 MG/ML VIAL ONE (15:34)
[2023-02-26] MEDS ORDERED: HYDROmorphone 0.5 MG/0.5 ML SYRINGE ONE ×3 (15:51→16:48)
[2023-02-26] MEDS ORDERED: fentaNYL 50 mcg/mL 1 mL Vial ONE ×2 (16:32→18:10)
[2023-02-26] MEDS ORDERED: Morphine 4 MG/ML VIAL ONE (16:54)
[2023-02-26] MEDS: metFORMIN 500 MG TAB PO SCH (17:09)
[2023-02-26] MEDS: Diazepam 5 MG TAB PO PRN (17:10)
[2023-02-26] MEDS: HYDROcodone/Acetaminophen 7.5/325 mg Tablet PO PRN (19:22)
[2023-02-26] MEDS: CEFAZOLIN 2 GM in Sodium Chloride 0.9% 100 ML IVPB SCH (19:30)
[2023-02-26] MEDS: Sodium Chloride 0.9% 1,000 ML IV SCH (20:26)
[2023-02-26] MEDS: Gabapentin 300 MG CAP PO SCH (20:29)
[2023-02-26] MEDS: Morphine 2 MG/ML VIAL SLOW IVP PRN (20:30)
[2023-02-26] MEDS: Atorvastatin Calcium 40 MG TAB PO SCH (20:54)
[2023-02-26] MEDS: Metoprolol Tartrate 25 MG TAB PO SCH (20:54)
[2023-02-26] MEDS: traMADol HCl 50 MG TAB PO PRN (22:42)
[2023-02-26] MEDS: tiZANidine HCl 4 MG TAB PO PRN (22:42)
[2023-02-26] MEDS: HumuLIN 70/30 (300 UNITS/3 ML VIAL) SC SCH (22:43)
[2023-02-27] MEDS: CEFAZOLIN 2 GM in Sodium Chloride 0.9% 100 ML IVPB SCH (01:57)
[2023-02-27] MEDS: Sodium Chloride 0.9% 1,000 ML IV SCH ×2 (02:00→17:22)
[2023-02-27] MEDS: Morphine 2 MG/ML VIAL SLOW IVP PRN ×5 (02:00→18:38)
[2023-02-27] MEDS: HYDROcodone/Acetaminophen 7.5/325 mg Tablet PO PRN ×3 (07:33→19:32)
[2023-02-27] MEDS: Metoprolol Tartrate 25 MG TAB PO SCH ×2 (07:35→19:34)
[2023-02-27] MEDS: DULoxetine 60 MG CAP PO SCH (07:35)
[2023-02-27] MEDS: metFORMIN 500 MG TAB PO SCH ×2 (07:36→17:17)
[2023-02-27] MEDS: Lisinopril 10 MG TAB PO SCH (07:36)
[2023-02-27] MEDS: Gabapentin 300 MG CAP PO SCH ×3 (07:36→19:31)
[2023-02-27] MEDS: tiZANidine HCl 4 MG TAB PO PRN ×2 (07:36→17:17)
[2023-02-27] MEDS: HumuLIN 70/30 (300 UNITS/3 ML VIAL) SC SCH ×2 (07:49→21:02)
[2023-02-27 08:11] LABS: Hemoglobin 11.9 g/dL (12.0-16.0); Mean Corpuscular Hemoglobin 30.6 pg (27.0-31.0); Mean Corpuscular Volume 95.6 fl (78.0-98.0); Mean Platelet Volume 7.2 fL (7.4-10.4); Platelet Count 350 10x3/uL (130-400); RBC Distribution Width 12.8 % (11.5-14.5); Red Blood Cell (RBC) Count 3.88 mill/uL (4.20-5.40)
[2023-02-27 08:32] LABS: Anion Gap 12 mmol/L (10-20); BUN (Urea Nitrogen) 14 mg/dL (9.8-20.1); Calc. Creatinine Clearance 77 mL/min (70-130); Calcium 8.7 mg/dL (7.8-10.44); Carbon Dioxide 22 mmol/L (22-29); Chloride 105 mmol/L (98-107); Estimated GFR 90; Glucose 102 mg/dL (70-105); Potassium 4.2 mmol/L (3.5-5.1); Sodium 135 mmol/L (136-145)
[2023-02-27] MEDS ORDERED: Dextrose 50% Abboject 50 ML SYRINGE IVP PRN (09:00)
[2023-02-27] MEDS ORDERED: Dextrose 5% in Water 1,000 ML IV PRN (09:00)
[2023-02-27] MEDS: Diazepam 5 MG TAB PO PRN (19:31)
[2023-02-27] MEDS: Atorvastatin Calcium 40 MG TAB PO SCH (19:33)
[2023-02-27] MEDS ORDERED: HYDROcodone/Acetaminophen 7.5/325 mg Tablet PO PRN ×2 (20:08→20:09)
[2023-02-27] MEDS ORDERED: Sodium Chloride 0.9% 1,000 ML IV SCH (20:15)
[2023-02-27 20:53] LABS: #Eosinphils 0.1 thou/uL (0.0-0.7); #Lymphocytes 2.7 thou/uL (1.20-3.40); #Monocytes 1.4 thou/uL (0.11-0.59); %Basophils 0.1 % (0.0-1.0); %Eosinophils 1.2 % (0.0-10.0); %Lymphocytes 26.7 % (21.0-51.0); %Monocytes 13.4 % (0.0-10.0); %Neutrophils 58.7 % (42.0-75.0); Hemoglobin 10.3 g/dL (12.0-16.0); Mean Corpuscular HGB CONC 32.5 g/dL (32.0-36.0); Mean Corpuscular Hemoglobin 31.2 pg (27.0-31.0); Mean Corpuscular Volume 95.8 fl (78.0-98.0); Mean Platelet Volume 7.7 fL (7.4-10.4); Platelet Count 280 10x3/uL (130-400); Red Blood Cell (RBC) Count 3.31 mill/uL (4.20-5.40); White Blood Cell (WBC) Count 10.2 10x3/uL (4.8-10.8)
[2023-02-27] MEDS: traMADol HCl 50 MG TAB PO PRN (22:13)
[2023-02-28] MEDS: Morphine 2 MG/ML VIAL SLOW IVP PRN ×2 (01:22→05:45)
[2023-02-28] MEDS: traMADol HCl 50 MG TAB PO PRN ×2 (04:40→11:06)
[2023-02-28] MEDS: tiZANidine HCl 4 MG TAB PO PRN ×2 (04:42→15:53)
[2023-02-28] MEDS ORDERED: HYDROcodone/Acetaminophen 10/325 mg Tablet PO PRN (05:27)
[2023-02-28] MEDS: HYDROcodone/Acetaminophen 10/325 mg Tablet PO PRN ×4 (08:47→22:34)
[2023-02-28] MEDS: HumuLIN 70/30 (300 UNITS/3 ML VIAL) SC SCH ×2 (08:48→21:08)
[2023-02-28] MEDS: Gabapentin 300 MG CAP PO SCH ×3 (08:49→21:07)
[2023-02-28] MEDS: Metoprolol Tartrate 25 MG TAB PO SCH ×2 (08:49→20:48)
[2023-02-28] MEDS: metFORMIN 500 MG TAB PO SCH ×2 (08:49→17:13)
[2023-02-28] MEDS: DULoxetine 60 MG CAP PO SCH (08:49)
[2023-02-28] MEDS: Lisinopril 10 MG TAB PO SCH (08:49)
[2023-02-28] MEDS: Sodium Chloride 0.9% 1,000 ML IV SCH ×3 (08:50→21:04)
[2023-02-28] MEDS: Atorvastatin Calcium 40 MG TAB PO SCH (21:07)
[2023-02-28] MEDS: Diazepam 5 MG TAB PO PRN (23:07)
[2023-03-01] MEDS: HYDROcodone/Acetaminophen 10/325 mg Tablet PO PRN ×4 (02:06→20:26)
[2023-03-01] MEDS: Gabapentin 300 MG CAP PO SCH ×3 (07:59→20:26)
[2023-03-01] MEDS: traMADol HCl 50 MG TAB PO PRN ×2 (08:00→23:30)
[2023-03-01] MEDS: Metoprolol Tartrate 25 MG TAB PO SCH ×2 (08:00→19:22)
[2023-03-01] MEDS: metFORMIN 500 MG TAB PO SCH ×2 (08:00→17:45)
[2023-03-01] MEDS: DULoxetine 60 MG CAP PO SCH (08:00)
[2023-03-01] MEDS: Lisinopril 10 MG TAB PO SCH (08:03)
[2023-03-01] MEDS: HumuLIN 70/30 (300 UNITS/3 ML VIAL) SC SCH ×2 (08:04→20:28)
[2023-03-01] MEDS: Sodium Chloride 0.9% 1,000 ML IV SCH ×2 (11:11→20:27)
[2023-03-01 11:20] LABS: #Eosinphils 0.2 thou/uL (0.0-0.7); #Lymphocytes 2.2 thou/uL (1.20-3.40); #Neutrophils 5.3 thou/uL (1.40-6.50); %Basophils 0.3 % (0.0-1.0); %Eosinophils 2.4 % (0.0-10.0); %Lymphocytes 25.2 % (21.0-51.0); %Neutrophils 61.1 % (42.0-75.0); Hemoglobin 10.4 g/dL (12.0-16.0); Mean Corpuscular HGB CONC 32.2 g/dL (32.0-36.0); Mean Corpuscular Volume 96.3 fl (78.0-98.0); Mean Platelet Volume 6.7 fL (7.4-10.4); Platelet Count 327 10x3/uL (130-400); RBC Distribution Width 12.6 % (11.5-14.5); Red Blood Cell (RBC) Count 3.35 mill/uL (4.20-5.40); White Blood Cell (WBC) Count 8.7 10x3/uL (4.8-10.8)
[2023-03-01] MEDS: Diazepam 5 MG TAB PO PRN ×2 (13:21→23:30)
[2023-03-01] MEDS ORDERED: Sodium Chloride 0.9% 1,000 ML IV SCH (14:30)
[2023-03-01] MEDS: Morphine 2 MG/ML VIAL SLOW IVP PRN (17:44)
[2023-03-01] MEDS: Atorvastatin Calcium 40 MG TAB PO SCH (20:26)
[2023-03-02] MEDS: HYDROcodone/Acetaminophen 10/325 mg Tablet PO PRN ×5 (02:47→19:55)
[2023-03-02] MEDS: Sodium Chloride 0.9% 1,000 ML IV SCH ×2 (07:42→21:11)
[2023-03-02] MEDS: Gabapentin 300 MG CAP PO SCH ×3 (08:45→19:55)
[2023-03-02] MEDS: DULoxetine 60 MG CAP PO SCH (08:46)
[2023-03-02] MEDS: metFORMIN 500 MG TAB PO SCH ×2 (08:46→17:04)
[2023-03-02] MEDS: Diazepam 5 MG TAB PO PRN (08:46)
[2023-03-02] MEDS: Lisinopril 10 MG TAB PO SCH (09:40)
[2023-03-02] MEDS: HumuLIN 70/30 (300 UNITS/3 ML VIAL) SC SCH ×2 (09:40→21:05)
[2023-03-02] MEDS: Metoprolol Tartrate 25 MG TAB PO SCH ×2 (09:41→19:57)
[2023-03-02] MEDS ORDERED: Polyethylene Glycol 3350 17 GM Packet PO PRN (12:26)
[2023-03-02] MEDS ORDERED: Milk Of Magnesia 30 ML UDCUP PO PRN (12:26)
[2023-03-02] MEDS ORDERED: Bisacodyl 5 MG TAB PO PRN (12:26)
[2023-03-02 13:16] LABS: Anion Gap 12 mmol/L (10-20); BUN (Urea Nitrogen) 7 mg/dL (9.8-20.1); Calc. Creatinine Clearance 91 mL/min (70-130); Calcium 9.1 mg/dL (7.8-10.44); Carbon Dioxide 23 mmol/L (22-29); Chloride 105 mmol/L (98-107); Estimated GFR 102; Glucose 107 mg/dL (70-105); Potassium 4.2 mmol/L (3.5-5.1); Sodium 136 mmol/L (136-145)
[2023-03-02] MEDS ORDERED: Ketorolac Tromethamine 30 MG/ML VIAL IVP SCH (15:45)
[2023-03-02] MEDS: traMADol HCl 50 MG TAB PO PRN (17:05)
[2023-03-02] MEDS: tiZANidine HCl 4 MG TAB PO PRN (18:34)
[2023-03-02] MEDS: Atorvastatin Calcium 40 MG TAB PO SCH (19:55)
[2023-03-02] MEDS: Docusate 100 MG CAP PO SCH (19:55)
[2023-03-02] MEDS: Ketorolac Tromethamine 30 MG/ML VIAL IVP SCH (21:07)
[2023-03-03 00:39] VITALS: TEMP 97.6
[2023-03-03] MEDS: HYDROcodone/Acetaminophen 10/325 mg Tablet PO PRN ×2 (00:44→08:57)
[2023-03-03] MEDS: Ketorolac Tromethamine 30 MG/ML VIAL IVP SCH ×2 (05:28→09:53)
[2023-03-03] MEDS: Sodium Chloride 0.9% 1,000 ML IV SCH (07:35)
[2023-03-03 08:12] VITALS: BP 110/72
[2023-03-03] MEDS: tiZANidine HCl 4 MG TAB PO PRN (08:57)
[2023-03-03] MEDS: DULoxetine 60 MG CAP PO SCH (08:58)
[2023-03-03] MEDS: Docusate 100 MG CAP PO SCH (08:58)
[2023-03-03] MEDS: Gabapentin 300 MG CAP PO SCH (08:58)
[2023-03-03] MEDS: metFORMIN 500 MG TAB PO SCH (08:58)
[2023-03-03] MEDS: Lisinopril 10 MG TAB PO SCH (09:03)
[2023-03-03] MEDS: HumuLIN 70/30 (300 UNITS/3 ML VIAL) SC SCH (09:03)
[2023-03-03] MEDS: Metoprolol Tartrate 25 MG TAB PO SCH (09:04)
== END 2023-03-03 11:06 | disposition home or self-care (01) | DRG 520 ==
LOC: SDC 07:53 → MSONC 18:37 → OBSVTOIN 02-27 15:51
PROVIDERS: ADMIT Surgery; ATTEND Surgery
PROC: 00NY0ZZ Release Lumbar Spinal Cord, Open Approach (ICD-10-PCS; principal; 2023-02-27)
DX: M48.062 Spinal stenosis, lumbar region with neurogenic claudication (principal); M54.16 Radiculopathy, lumbar region; M41.9 Scoliosis, unspecified; R53.81 Other malaise; I95.9 Hypotension, unspecified; E11.9 Type 2 diabetes mellitus without complications; Z79.4 Long term (current) use of insulin
CPT/HCPCS: 36415; 36416; 80048; 84132; 85025; 85027; 93970; 96365; 96366; 96375; 96376; G0378; J1100; J1170; J1815; J1885; J2270; J2272; J2704; J2765; J3010; J3370; J3490; J7050

== ENCOUNTER 2023-03-25 06:24 | Emergency (ER) | payer OTHER ==
[2023-03-25] MEDS ORDERED: Morphine 4 MG/ML VIAL ONE (06:46)
[2023-03-25] MEDS ORDERED: Ondansetron PF 4 MG/2 ML Vial ONE (06:46)
[2023-03-25 07:32] LABS: #Eosinphils 0.1 thou/uL (0.0-0.7); #Lymphocytes 1.8 thou/uL (1.20-3.40); #Monocytes 1.6 thou/uL (0.11-0.59); #Neutrophils 12.8 thou/uL (1.40-6.50); %Basophils 0.1 % (0.0-1.0); %Eosinophils 0.5 % (0.0-10.0); %Lymphocytes 11.3 % (21.0-51.0); %Neutrophils 78.3 % (42.0-75.0); Hemoglobin 11.7 g/dL (12.0-16.0); Mean Corpuscular HGB CONC 33.1 g/dL (32.0-36.0); Mean Corpuscular Hemoglobin 30.3 pg (27.0-31.0); Mean Corpuscular Volume 91.5 fl (78.0-98.0); Platelet Count 418 10x3/uL (130-400); RBC Distribution Width 12.6 % (11.5-14.5); Red Blood Cell (RBC) Count 3.87 mill/uL (4.20-5.40); White Blood Cell (WBC) Count 16.3 10x3/uL (4.8-10.8)
[2023-03-25 07:51] LABS: ALT (SGPT) 12 U/L (8-55); AST (SGOT) 13 U/L (5-34); Albumin 3.8 g/dL (3.5-5.0); Alkaline Phosphatase 139 U/L (40-110); Anion Gap 12 mmol/L (10-20); BUN (Urea Nitrogen) 14 mg/dL (9.8-20.1); Bilirubin, Total 0.4 mg/dL (0.2-1.2); Calc. Creatinine Clearance 0 mL/min (70-130); Calcium 9.1 mg/dL (7.8-10.44); Carbon Dioxide 23 mmol/L (22-29); Chloride 96 mmol/L (98-107); Estimated GFR 95; Globulin 2.9 g/dL (2.4-3.5); Glucose 137 mg/dL (70-105); Potassium 3.8 mmol/L (3.5-5.1); Protein, Total 6.7 g/dL (6.0-8.3); Sodium 127 mmol/L (136-145)
[2023-03-25 09:14] LABS: Bacteria/HPF None Seen HPF (None Seen); Bilirubin Negative (Negative); Blood, Urine Negative (Negative); Clarity Clear (Clear); Glucose, Urine (Dipstick) Normal (Negative); Ketone, Urine Negative (Negative); Leukocyte 75 Leu/uL (Negative); Nitrite Negative (Negative); Protein, Urine (Dipstick) Negative (Neg-Trace); RBC/HPF 0-3 HPF (0-3); Specific Gravity, Urine 1.008 (1.002-1.036); Squamous Epithelial None Seen HPF (0-3); Urobilinogen Normal mg/dL (Less than 2); WBC/HPF 0-3 HPF (0-3); pH, Urine 5.5 (5.0-9.0)
== END 2023-03-25 09:30 | disposition home or self-care (01) ==
LOC: ERS 06:24
DX: T81.41XA Infection following a procedure, superficial incisional surgical site, initial encounter (principal); L03.312 Cellulitis of back [any part except buttock and flank]; D72.829 Elevated white blood cell count, unspecified; I10 Essential (primary) hypertension; E10.9 Type 1 diabetes mellitus without complications; F17.210 Nicotine dependence, cigarettes, uncomplicated
CPT/HCPCS: 36415; 80053; 81003; 81015; 83605; 85025; 85652; 86140; 87040; 87086; 96374; 96375; J2270; J2405

== ENCOUNTER 2023-06-17 14:09 | Outpatient (CLI) | payer OTHER | END 2023-06-17 14:10 | disposition home or self-care (01) | LOC: RAD-FRANK 14:09 | PROVIDERS: ATTEND Nurse Practitioner Family | DX: M25.561 Pain in right knee (principal) ==

== ENCOUNTER 2023-09-01 13:29 | Observation (INO) | payer OTHER ==
[2023-09-01 14:05] LABS: #Basophils 0.1 thou/uL (0.0-0.2); #Eosinphils 0.1 thou/uL (0.0-0.7); #Monocytes 0.8 thou/uL (0.11-0.59); #Neutrophils 8.3 thou/uL (1.40-6.50); %Basophils 0.5 % (0.0-1.0); %Eosinophils 0.7 % (0.0-10.0); %Lymphocytes 10.9 % (21.0-51.0); %Monocytes 7.8 % (0.0-10.0); %Neutrophils 79.8 % (42.0-75.0); Hematocrit 35.9 % (36.0-47.0); Hemoglobin 11.7 g/dL (12.0-16.0); Mean Corpuscular HGB CONC 32.6 g/dL (32.0-36.0); Mean Corpuscular Hemoglobin 30.5 pg (27.0-31.0); Mean Corpuscular Volume 93.7 fl (78.0-98.0); Mean Platelet Volume 8.4 fL (7.4-10.4); Platelet Count 542 10x3/uL (130-400); RBC Distribution Width 18.7 % (11.5-14.5); Red Blood Cell (RBC) Count 3.83 mill/uL (4.20-5.40); White Blood Cell (WBC) Count 10.4 10x3/uL (4.8-10.8)
[2023-09-01] MEDS ORDERED: Ondansetron PF 4 MG/2 ML Vial ONE (14:07)
[2023-09-01] MEDS ORDERED: Morphine 4 MG/ML VIAL ONE (14:07)
[2023-09-01 14:33] LABS: ALT (SGPT) 29 U/L (8-55); AST (SGOT) 35 U/L (5-34); Albumin 4.2 g/dL (3.5-5.0); Alkaline Phosphatase 101 U/L (40-110); Anion Gap 15 mmol/L (10-20); BUN (Urea Nitrogen) 9 mg/dL (9.8-20.1); Bilirubin, Total 0.3 mg/dL (0.2-1.2); Calc. Creatinine Clearance 0 mL/min (70-130); Calcium 9.7 mg/dL (7.8-10.44); Carbon Dioxide 22 mmol/L (22-29); Chloride 103 mmol/L (98-107); Estimated GFR 90; Globulin 2.4 g/dL (2.4-3.5); Glucose 146 mg/dL (70-105); Magnesium 2.3 mg/dL (1.6-2.6); Potassium 4.7 mmol/L (3.5-5.1); Protein, Total 6.6 g/dL (6.0-8.3); Sodium 135 mmol/L (136-145)
[2023-09-01 14:37] LABS: Troponin I Less than 0.010 ng/mL (< 0.028)
[2023-09-01 15:14] LABS: Amphetamine Not Detected (NotDetected); Barbiturates Screen Not Detected (NotDetected); Benzodiazepine Screen Not Detected (NotDetected); Cocaine Metabolite Screen Not Detected (NotDetected); Methadone Not Detected (NotDetected); Methamphetamine Not Detected (NotDetected); Opiate Screen Not Detected (NotDetected); Oxycodone Screen Not Detected (NotDetected); Phencyclidine (PCP) Not Detected (NotDetected); THC/Cannabinoid Screen Not Detected (NotDetected); Tricyclic Screen Not Detected (NotDetected)
[2023-09-01 15:20] LABS: Bacteria/HPF None Seen HPF (None Seen); Bilirubin Negative (Negative); Blood, Urine Negative (Negative); CAUTI Indications for Culture Dysuria,urgency,freq; Clarity Clear (Clear); Glucose, Urine (Dipstick) 300 mg/dL (Negative); Ketone, Urine Negative (Negative); Leukocyte 25 Leu/uL (Negative); Nitrite Negative (Negative); Protein, Urine (Dipstick) 10 mg/dL (Neg-Trace); RBC/HPF 0-3 HPF (0-3); Specific Gravity, Urine 1.016 (1.002-1.036); Squamous Epithelial 0-3 HPF (0-3); Urobilinogen Normal mg/dL (Less than 2); WBC/HPF 0-3 HPF (0-3); pH, Urine 7.5 (5.0-9.0)
[2023-09-01 15:21] LABS: Urine Culture Reflex No No
[2023-09-01] MEDS ORDERED: LORazepam 2 MG/ML SYR.(CARPUJECT) ONE (16:41)
[2023-09-01] MEDS ORDERED: levETIRAcetam 500 MG/5 ML VIAL ONE (16:41)
[2023-09-01] MEDS ORDERED: Ondansetron ODT 4 MG TAB PO PRN (16:50)
[2023-09-01] MEDS ORDERED: Acetaminophen 325 MG TAB PO PRN (16:50)
[2023-09-01] MEDS ORDERED: Lorazepam 2 MG/ML VIAL SLOW IVP PRN (16:50)
[2023-09-01] MEDS ORDERED: Glucagon 1 MG/ML KIT IM PRN (17:43)
[2023-09-01] MEDS ORDERED: Dextrose 5% in Water 1,000 ML IV PRN (17:43)
[2023-09-01] MEDS ORDERED: Dextrose 50% Abboject 50 ML SYRINGE SLOW IVP PRN (17:43)
[2023-09-01 18:01] LABS: Hemoglobin A1c 4.8 % (4.0-6.0)
[2023-09-01] MEDS ORDERED: Ketorolac Tromethamine 30 MG/ML VIAL IVP SCH (21:45)
[2023-09-02 00:18] VITALS: BMI 27.7
[2023-09-02 04:29] LABS: #Basophils 0.1 thou/uL (0.0-0.2); #Eosinphils 0.1 thou/uL (0.0-0.7); #Neutrophils 3.6 thou/uL (1.40-6.50); %Basophils 0.8 % (0.0-1.0); %Eosinophils 1.8 % (0.0-10.0); %Lymphocytes 35.3 % (21.0-51.0); %Neutrophils 48.7 % (42.0-75.0); Hematocrit 32.1 % (36.0-47.0); Hemoglobin 10.4 g/dL (12.0-16.0); Mean Corpuscular HGB CONC 32.4 g/dL (32.0-36.0); Mean Corpuscular Hemoglobin 30.4 pg (27.0-31.0); Mean Corpuscular Volume 93.9 fl (78.0-98.0); Mean Platelet Volume 8.6 fL (7.4-10.4); Platelet Count 479 10x3/uL (130-400); RBC Distribution Width 18.6 % (11.5-14.5); Red Blood Cell (RBC) Count 3.42 mill/uL (4.20-5.40); White Blood Cell (WBC) Count 7.4 10x3/uL (4.8-10.8)
[2023-09-02 04:57] LABS: ALT (SGPT) 19 U/L (8-55); AST (SGOT) 19 U/L (5-34); Albumin 3.8 g/dL (3.5-5.0); Alkaline Phosphatase 78 U/L (40-110); Anion Gap 11 mmol/L (10-20); BUN (Urea Nitrogen) 9 mg/dL (9.8-20.1); Bilirubin, Total 0.2 mg/dL (0.2-1.2); Calc. Creatinine Clearance 78 mL/min (70-130); Calcium 8.8 mg/dL (7.8-10.44); Carbon Dioxide 22 mmol/L (22-29); Chloride 109 mmol/L (98-107); Estimated GFR 87; Globulin 2.1 g/dL (2.4-3.5); Glucose 148 mg/dL (70-105); Potassium 4.1 mmol/L (3.5-5.1); Protein, Total 5.9 g/dL (6.0-8.3); Sodium 138 mmol/L (136-145)
[2023-09-02] MEDS ORDERED: FLU VACC QS2023-24(6MOS UP)/PF 60 MCG/0.5 ML SYRINGE IM ONE (09:00)
[2023-09-02] MEDS ORDERED: levETIRAcetam 500 MG TAB PO SCH (09:00)
[2023-09-02] MEDS ORDERED: Albuterol 200 PUFF (6.7GM INHALER) INH PRN (12:13)
[2023-09-02] MEDS ORDERED: Naproxen 500 MG TAB PO SCH ×2 (12:30→21:00)
[2023-09-02] MEDS ORDERED: HYDROcodone/Acetaminophen 5/325 mg Tablet PO SCH (13:30)
[2023-09-02] MEDS: clonazePAM 1 MG TAB PO SCH (14:08)
[2023-09-02] MEDS: Insulin Regular 300 UNITS/3 ML VIAL SC PRN (14:09)
[2023-09-02] MEDS ORDERED: HYDROcodone/Acetaminophen 5/325 mg Tablet PO PRN (18:09)
[2023-09-02] MEDS: levETIRAcetam 500 MG TAB PO SCH (19:35)
[2023-09-02] MEDS ORDERED: Atorvastatin Calcium 40 MG TAB PO SCH (21:00)
[2023-09-02 23:20] VITALS: TEMP 97.4
[2023-09-03 05:13] LABS: #Basophils 0.1 thou/uL (0.0-0.2); #Eosinphils 0.2 thou/uL (0.0-0.7); #Monocytes 0.8 thou/uL (0.11-0.59); #Neutrophils 3.8 thou/uL (1.40-6.50); %Eosinophils 2.7 % (0.0-10.0); %Lymphocytes 29.3 % (21.0-51.0); %Monocytes 12.1 % (0.0-10.0); %Neutrophils 54.8 % (42.0-75.0); Hematocrit 34.8 % (36.0-47.0); Hemoglobin 11.3 g/dL (12.0-16.0); Mean Corpuscular HGB CONC 32.5 g/dL (32.0-36.0); Mean Corpuscular Hemoglobin 30.7 pg (27.0-31.0); Mean Corpuscular Volume 94.6 fl (78.0-98.0); Mean Platelet Volume 9.1 fL (7.4-10.4); Platelet Count 496 10x3/uL (130-400); RBC Distribution Width 18.3 % (11.5-14.5); Red Blood Cell (RBC) Count 3.68 mill/uL (4.20-5.40); White Blood Cell (WBC) Count 6.9 10x3/uL (4.8-10.8)
[2023-09-03 05:58] LABS: Anion Gap 13 mmol/L (10-20); BUN (Urea Nitrogen) 18 mg/dL (9.8-20.1); Calc. Creatinine Clearance 75 mL/min (70-130); Calcium 8.8 mg/dL (7.8-10.44); Carbon Dioxide 21 mmol/L (22-29); Chloride 109 mmol/L (98-107); Estimated GFR 83; Glucose 201 mg/dL (70-105); Potassium 4.5 mmol/L (3.5-5.1); Sodium 138 mmol/L (136-145)
[2023-09-03] MEDS: Insulin Regular 300 UNITS/3 ML VIAL SC PRN (06:23)
[2023-09-03] MEDS ORDERED: Losartan 25 MG TAB PO SCH (09:00)
[2023-09-03] MEDS ORDERED: DULoxetine 60 MG CAP PO SCH (09:00)
[2023-09-03] MEDS: clonazePAM 1 MG TAB PO SCH (10:22)
[2023-09-03] MEDS: levETIRAcetam 500 MG TAB PO SCH (10:24)
[2023-09-03 11:36] VITALS: BP 150/96
[2023-09-03] MEDS ORDERED: FLU VACC QS2023-24(6MOS UP)/PF 60 MCG/0.5 ML SYRINGE IM ONE (18:00)
== END 2023-09-03 14:05 | disposition home or self-care (01) ==
LOC: ERS 13:29 → 2SE 17:10
PROVIDERS: ADMIT Family Medicine; ATTEND Internal Medicine
DX: R56.9 Unspecified convulsions (principal); N39.0 Urinary tract infection, site not specified; I10 Essential (primary) hypertension; E11.9 Type 2 diabetes mellitus without complications; E78.5 Hyperlipidemia, unspecified; K21.9 Gastro-esophageal reflux disease without esophagitis; F41.9 Anxiety disorder, unspecified; F17.210 Nicotine dependence, cigarettes, uncomplicated; Z79.84 Long term (current) use of oral hypoglycemic drugs; Z79.899 Other long term (current) drug therapy
CPT/HCPCS: 36415; 36416; 70450; 70553; 80048; 80053; 80306; 81001; 83036; 83735; 84439; 84443; 84484; 85025; 93005; 95711; 95819; 95957; 96374; 96375; G0378; J1815; J1885; J1953; J2060; J2270; J2405

== ENCOUNTER 2023-09-19 11:04 | Emergency (ER) | payer OTHER ==
[2023-09-19] MEDS ORDERED: Ketorolac Tromethamine 30 MG/ML VIAL ONE (13:46)
[2023-09-19] MEDS ORDERED: HYDROcodone/Acetaminophen 5/325 mg Tablet ONE (13:46)
== END 2023-09-19 13:52 | disposition home or self-care (01) ==
LOC: ERS 11:04
DX: S52.601A Unspecified fracture of lower end of right ulna, initial encounter for closed fracture (principal); E11.9 Type 2 diabetes mellitus without complications; I10 Essential (primary) hypertension; F17.200 Nicotine dependence, unspecified, uncomplicated; W01.0XXA Fall on same level from slipping, tripping and stumbling without subsequent striking against object, initial encounter; W54.1XXA Struck by dog, initial encounter
CPT/HCPCS: 96372; J1885

== ENCOUNTER 2023-09-21 11:37 | Emergency (ER) | payer OTHER ==
[2023-09-21] MEDS ORDERED: HYDROcodone/Acetaminophen 10/325 mg Tablet ONE (13:22)
== END 2023-09-21 13:25 | disposition home or self-care (01) ==
LOC: ERS 11:37
DX: S52.601A Unspecified fracture of lower end of right ulna, initial encounter for closed fracture (principal); I10 Essential (primary) hypertension; E11.9 Type 2 diabetes mellitus without complications; F17.200 Nicotine dependence, unspecified, uncomplicated; X58.XXXA Exposure to other specified factors, initial encounter
CPT/HCPCS: 29105

== ENCOUNTER 2023-11-02 15:56 | Outpatient (CLI) | payer OTHER | END 2023-11-02 15:57 | disposition home or self-care (01) | LOC: RAD-FRANK 15:56 | PROVIDERS: ATTEND Nurse Practitioner Family | DX: S52.601D Unspecified fracture of lower end of right ulna, subsequent encounter for closed fracture with routine healing (principal); S52.91XS Unspecified fracture of right forearm, sequela; S63.004A Unspecified dislocation of right wrist and hand, initial encounter ==

== ENCOUNTER 2024-04-10 20:51 | Emergency (ER) | payer OTHER ==
[2024-04-10 22:51] LABS: Bilirubin Negative (Negative); Blood, Urine Negative (Negative); Glucose, Urine (Dipstick) 100 mg/dL (Negative); Ketone, Urine Negative (Negative); Leukocyte Negative (Negative); Nitrite Negative (Negative); Protein, Urine (Dipstick) Negative (Neg-Trace); Urobilinogen 0.2 mg/dL (Less than 2); pH, Urine 5.5 (5.0-9.0)
[2024-04-10 22:59] LABS: CAUTI Indications for Culture Pelvic or flank pain; RBC/HPF 0-3 HPF (0-3); Squamous Epithelial 0-3 HPF (0-3); WBC/HPF 0-3 HPF (0-3)
[2024-04-10 23:01] LABS: Clarity Clear (Clear)
[2024-04-10 23:03] LABS: Bacteria/HPF 1+ HPF (None Seen); Specific Gravity, Urine 1.004 (1.002-1.036)
[2024-04-10 23:04] LABS: Urine Culture Reflex No No
[2024-04-10 23:04] LABS: #Basophils 0.07 10x3/uL (0.0-0.2); %Basophils 0.8 % (0.0-1.0); %Eosinophils 1.5 % (0.0-10.0); %Lymphocytes 43.6 % (21.0-51.0); %Monocytes 9.4 % (0.0-10.0); %Neutrophils 44.5 % (42.0-75.0); Hematocrit 39.6 % (36.0-47.0); Hemoglobin 13.4 g/dL (12.0-16.0); Mean Corpuscular HGB CONC 33.8 g/dL (32.0-36.0); Mean Corpuscular Hemoglobin 29.6 pg (27.0-31.0); Mean Corpuscular Volume 87.6 fL (78.0-98.0); Mean Platelet Volume 9.2 fL (7.4-10.4); Platelet Count 494 10x3/uL (130-400); RBC Distribution Width 14.1 % (11.5-14.5); Red Blood Cell (RBC) Count 4.52 mill/uL (4.20-5.40)
[2024-04-10 23:25] LABS: ALT (SGPT) 12 U/L (8-55); AST (SGOT) 13 U/L (5-34); Albumin 3.9 g/dL (3.5-5.0); Alkaline Phosphatase 96 U/L (40-110); Anion Gap 15 mmol/L (10-20); BUN (Urea Nitrogen) 12 mg/dL (9.8-20.1); Bilirubin, Total 0.2 mg/dL (0.2-1.2); Calc. Creatinine Clearance 0 mL/min (70-130); Calcium 9.7 mg/dL (7.8-10.44); Carbon Dioxide 20 mmol/L (22-29); Chloride 110 mmol/L (98-107); Estimated GFR 96; Globulin 3.2 g/dL (2.4-3.5); Glucose 158 mg/dL (70-105); Potassium 4.6 mmol/L (3.5-5.1); Protein, Total 7.1 g/dL (6.0-8.3); Sodium 140 mmol/L (136-145)
[2024-04-10 23:31] LABS: Troponin I 0.012 ng/mL (< 0.028)
[2024-04-10] MEDS ORDERED: Ketorolac Tromethamine 30 MG (1 mL) VIAL ONE (23:43)
[2024-04-11] MEDS ORDERED: Lidocaine 2% Viscous 10 mL, Alum & Magn 30 mL SSW SCH (02:15)
== END 2024-04-11 02:07 | disposition home or self-care (01) ==
LOC: ERS 20:51
DX: R33.0 Drug induced retention of urine (principal); R19.7 Diarrhea, unspecified; R07.9 Chest pain, unspecified; I10 Essential (primary) hypertension; E11.9 Type 2 diabetes mellitus without complications; F17.200 Nicotine dependence, unspecified, uncomplicated; Z79.84 Long term (current) use of oral hypoglycemic drugs; Z79.899 Other long term (current) drug therapy
CPT/HCPCS: 36415; 71045; 80053; 81001; 84484; 85025; 87086; 93005; 96374; J1885

== ENCOUNTER 2024-06-13 10:49 | Emergency (ER) | payer OTHER ==
[2024-06-13 12:05] LABS: #Basophils 0.04 10x3/uL (0.0-0.2); %Basophils 0.5 % (0.0-1.0); %Eosinophils 0.6 % (0.0-10.0); %Lymphocytes 20.9 % (21.0-51.0); %Monocytes 8.9 % (0.0-10.0); %Neutrophils 68.9 % (42.0-75.0); Hematocrit 38.1 % (36.0-47.0); Hemoglobin 12.7 g/dL (12.0-16.0); Mean Corpuscular HGB CONC 33.3 g/dL (32.0-36.0); Mean Corpuscular Hemoglobin 29.7 pg (27.0-31.0); Mean Corpuscular Volume 89.2 fL (78.0-98.0); Mean Platelet Volume 9.7 fL (7.4-10.4); Platelet Count 415 10x3/uL (130-400); RBC Distribution Width 13.9 % (11.5-14.5); Red Blood Cell (RBC) Count 4.27 mill/uL (4.20-5.40)
[2024-06-13 12:46] LABS: ALT (SGPT) 16 U/L (8-55); AST (SGOT) 16 U/L (5-34); Acetaminophen Less than 10 mcg/mL (10.0-30.0); Albumin 3.6 g/dL (3.4-4.8); Alcohol Less than 10.0 mg/dL (Less than 10); Alkaline Phosphatase 116 U/L (40-110); Anion Gap 14 mmol/L (10-20); BUN (Urea Nitrogen) 9 mg/dL (9.8-20.1); Bilirubin, Total 0.2 mg/dL (0.2-1.2); Calc. Creatinine Clearance 0 mL/min (70-130); Calcium 9.3 mg/dL (7.8-10.44); Carbon Dioxide 26 mmol/L (23-31); Chloride 109 mmol/L (98-107); Estimated GFR 100; Globulin 2.5 g/dL (2.4-3.5); Glucose 169 mg/dL (80-115); Potassium 3.6 mmol/L (3.5-5.1); Protein, Total 6.1 g/dL (5.8-8.1); Salicylate Less than 8.0 mg/dL (15.0-30.0); Sodium 145 mmol/L (136-145)
[2024-06-13 12:48] LABS: Bacteria/HPF None Seen HPF (None Seen); Bilirubin Negative (Negative); Blood, Urine Negative (Negative); CAUTI Indications for Culture Alt mental st,lethar; Clarity Clear (Clear); Glucose, Urine (Dipstick) 70 mg/dL (Negative); Ketone, Urine Negative (Negative); Leukocyte 75 Leu/uL (Negative); Nitrite Negative (Negative); Protein, Urine (Dipstick) Negative (Neg-Trace); RBC/HPF 0-3 HPF (0-3); Specific Gravity, Urine 1.006 (1.002-1.036); Squamous Epithelial None Seen HPF (0-3); Urobilinogen Normal mg/dL (Less than 2); WBC/HPF 0-3 HPF (0-3)
[2024-06-13 12:50] LABS: Urine Culture Reflex No No
[2024-06-13 13:20] LABS: Troponin I 0.019 ng/mL (< 0.028)
== END 2024-06-13 14:36 | disposition home or self-care (01) ==
LOC: ERS 10:49
DX: R41.0 Disorientation, unspecified (principal); I10 Essential (primary) hypertension; E11.9 Type 2 diabetes mellitus without complications; F17.200 Nicotine dependence, unspecified, uncomplicated; W18.30XA Fall on same level, unspecified, initial encounter; Z79.4 Long term (current) use of insulin
CPT/HCPCS: 36416; 70450; 71045; 80053; 80307; 81001; 84484; 85025; 93005

== ENCOUNTER 2024-09-07 17:19 | Inpatient (IN) | payer OTHER ==
[~2024-09-07 17:19] MED LIST changes: -Iopamidol-370 76% 500 ML 1 ML ONE; +Iopamidol-370 76% 500 ML MDV (1 ML CHARGE) ONE
[2024-09-07 17:50] LABS: #Basophils 0.03 10x3/uL (0.0-0.2); %Basophils 0.4 % (0.0-1.0); %Eosinophils 0.7 % (0.0-10.0); %Lymphocytes 30.3 % (21.0-51.0); %Monocytes 10.5 % (0.0-10.0); Hematocrit 42.4 % (36.0-47.0); Hemoglobin 14.1 g/dL (12.0-16.0); Mean Corpuscular HGB CONC 33.3 g/dL (32.0-36.0); Mean Corpuscular Volume 87.1 fL (78.0-98.0); Mean Platelet Volume 9.1 fL (7.4-10.4); Platelet Count 425 10x3/uL (130-400); RBC Distribution Width 13.6 % (11.5-14.5); Red Blood Cell (RBC) Count 4.87 mill/uL (4.20-5.40)
[2024-09-07 18:07] LABS: ALT (SGPT) 11 U/L (8-55); AST (SGOT) 15 U/L (5-34); Albumin 3.9 g/dL (3.4-4.8); Alkaline Phosphatase 135 U/L (40-110); Anion Gap 14 mmol/L (10-20); BUN (Urea Nitrogen) 10 mg/dL (9.8-20.1); Bilirubin, Total 0.2 mg/dL (0.2-1.2); Calc. Creatinine Clearance 0 mL/min (70-130); Calcium 9.7 mg/dL (7.8-10.44); Carbon Dioxide 20 mmol/L (23-31); Chloride 103 mmol/L (98-107); Estimated GFR 91; Globulin 3.1 g/dL (2.4-3.5); Glucose 175 mg/dL (80-115); Lipase 11 U/L (8-78); Sodium 133 mmol/L (136-145)
[2024-09-07 18:09] LABS: Bacteria/HPF None Seen HPF (None Seen); Bilirubin Negative (Negative); Blood, Urine Negative (Negative); CAUTI Indications for Culture Pelvic or flank pain; Clarity Clear (Clear); Glucose, Urine (Dipstick) Normal (Negative); Ketone, Urine 20 mg/dL (Negative); Leukocyte 500 Leu/uL (Negative); Nitrite Negative (Negative); Protein, Urine (Dipstick) 10 mg/dL (Neg-Trace); RBC/HPF 0-3 HPF (0-3); Specific Gravity, Urine 1.014 (1.002-1.036); Squamous Epithelial 0-3 HPF (0-3); Urobilinogen Normal mg/dL (Less than 2); WBC/HPF Greater than 50 HPF (0-3)
[2024-09-07 18:10] LABS: Urine Culture Reflex Yes Yes
[2024-09-07] MEDS ORDERED: Sodium Chloride 0.9% 100 ML ONE (18:45)
[2024-09-07] MEDS ORDERED: cefTRIAXone (ROCEPHIN) 2 GM VIAL ONE (18:45)
[2024-09-07] MEDS ORDERED: Dextrose 5% in Water 1,000 ML IV PRN (20:01)
[2024-09-07] MEDS ORDERED: Glucagon 1 MG/ML KIT IM PRN (20:01)
[2024-09-07] MEDS ORDERED: Dextrose 50% Abboject 50 ML SYRINGE SLOW IVP PRN (20:01)
[2024-09-07 20:15] LABS: Amphetamine Not Detected (NotDetected); Barbiturates Screen Not Detected (NotDetected); Benzodiazepine Screen Detected (NotDetected); Cocaine Metabolite Screen Not Detected (NotDetected); Methadone Not Detected (NotDetected); Methamphetamine Not Detected (NotDetected); Opiate Screen Detected (NotDetected); Oxycodone Screen Not Detected (NotDetected); Phencyclidine (PCP) Not Detected (NotDetected); THC/Cannabinoid Screen Not Detected (NotDetected); Tricyclic Screen Not Detected (NotDetected)
[2024-09-07 21:37] VITALS: BMI 27.0
[2024-09-07] MEDS: Nicotine 21 MG PATCH TD SCH (22:31)
[2024-09-08] MEDS: Acetaminophen 325 MG TAB PO PRN (05:15)
[2024-09-08] MEDS: Insulin Lispro 100 UNIT/ML 10 ML VIAL SC PRN ×2 (05:20→21:04)
[2024-09-08 06:22] LABS: #Basophils 0.05 10x3/uL (0.0-0.2); %Basophils 0.7 % (0.0-1.0); %Eosinophils 1.4 % (0.0-10.0); %Lymphocytes 33.9 % (21.0-51.0); %Neutrophils 49.7 % (42.0-75.0); Hematocrit 41.3 % (36.0-47.0); Hemoglobin 13.5 g/dL (12.0-16.0); Mean Corpuscular HGB CONC 32.7 g/dL (32.0-36.0); Mean Corpuscular Hemoglobin 28.8 pg (27.0-31.0); Mean Corpuscular Volume 88.2 fL (78.0-98.0); Mean Platelet Volume 9.5 fL (7.4-10.4); Platelet Count 365 10x3/uL (130-400); Red Blood Cell (RBC) Count 4.68 mill/uL (4.20-5.40)
[2024-09-08 06:35] LABS: Anion Gap 11 mmol/L (10-20); BUN (Urea Nitrogen) 11 mg/dL (9.8-20.1); Calc. Creatinine Clearance 77 mL/min (70-130); Calcium 8.8 mg/dL (7.8-10.44); Carbon Dioxide 21 mmol/L (23-31); Chloride 109 mmol/L (98-107); Estimated GFR 89; Glucose 161 mg/dL (80-115); Potassium 3.8 mmol/L (3.5-5.1); Sodium 137 mmol/L (136-145)
[2024-09-08] MEDS: Gabapentin 300 MG CAP PO SCH (10:17)
[2024-09-08] MEDS: clonazePAM 1 MG TAB PO SCH (10:18)
[2024-09-08] MEDS: levETIRAcetam 500 MG TAB PO SCH (10:18)
[2024-09-08] MEDS: DULoxetine 60 MG CAP PO SCH (10:18)
[2024-09-08] MEDS: Losartan 25 MG TAB PO SCH (10:18)
[2024-09-08] MEDS: Saccharomyces boulardii 250 MG CAP PO SCH (10:18)
[2024-09-08] MEDS: Pantoprazole DR 40 MG TAB PO SCH (10:18)
[2024-09-08] MEDS: Enoxaparin 40 MG (0.4 mL) SYRINGE SC SCH (10:18)
[2024-09-08] MEDS: Ondansetron PF 4 MG/2 ML Vial IVP PRN (11:52)
[2024-09-08] MEDS: Phenazopyridine HCl 100 MG TAB PO SCH (12:19)
[2024-09-08] MEDS: Scopolamine 1 mg/72 hour Patch TD SCH (15:56)
[2024-09-08] MEDS: cefTRIAXone\\ROCEPHIN 1 GM in Sodium Chloride 0.9% 100 ML IVPB SCH (18:01)
[2024-09-08] MEDS: Atorvastatin Calcium 40 MG TAB PO SCH (19:50)
[2024-09-08] MEDS: Ketorolac Tromethamine 30 MG (1 mL) VIAL IVP SCH (20:32)
[2024-09-08 22:03] LABS: Campy jejuni + coli by PCR Negative (Negative); STEC Shiga Toxin 1+2 Negative (Negative); Salmonella spp. by PCR Negative (Negative); Shigella spp + EIEC by PCR Negative (Negative)
[2024-09-09 05:05] LABS: #Basophils 0.05 10x3/uL (0.0-0.2); %Basophils 0.7 % (0.0-1.0); %Eosinophils 2.2 % (0.0-10.0); %Lymphocytes 51.2 % (21.0-51.0); %Monocytes 13.9 % (0.0-10.0); %Neutrophils 31.9 % (42.0-75.0); Hematocrit 36.7 % (36.0-47.0); Hemoglobin 12.4 g/dL (12.0-16.0); Mean Corpuscular HGB CONC 33.8 g/dL (32.0-36.0); Mean Corpuscular Hemoglobin 28.8 pg (27.0-31.0); Mean Corpuscular Volume 85.2 fL (78.0-98.0); Mean Platelet Volume 9.8 fL (7.4-10.4); Platelet Count 356 10x3/uL (130-400); Red Blood Cell (RBC) Count 4.31 mill/uL (4.20-5.40)
[2024-09-09 05:20] LABS: Anion Gap 12 mmol/L (10-20); BUN (Urea Nitrogen) 12 mg/dL (9.8-20.1); Calc. Creatinine Clearance 86 mL/min (70-130); Calcium 8.4 mg/dL (7.8-10.44); Carbon Dioxide 23 mmol/L (23-31); Chloride 105 mmol/L (98-107); Estimated GFR 99; Glucose 125 mg/dL (80-115); Potassium 3.5 mmol/L (3.5-5.1); Sodium 136 mmol/L (136-145)
[2024-09-09 10:13] VITALS: BP 168/74; TEMP 98.1
== END 2024-09-09 10:57 | disposition home or self-care (01) | DRG 689 ==
LOC: ERS 17:19 → T4-B 19:54 → OBSVTOIN 09-08 10:07
PROVIDERS: ADMIT Internal Medicine; ATTEND Internal Medicine
DX: N39.0 Urinary tract infection, site not specified (principal); G93.41 Metabolic encephalopathy; E11.9 Type 2 diabetes mellitus without complications; I10 Essential (primary) hypertension; K21.9 Gastro-esophageal reflux disease without esophagitis; F17.210 Nicotine dependence, cigarettes, uncomplicated; E78.5 Hyperlipidemia, unspecified; R19.7 Diarrhea, unspecified; G40.909 Epilepsy, unspecified, not intractable, without status epilepticus; F32.A Depression, unspecified; F41.9 Anxiety disorder, unspecified; Z90.710 Acquired absence of both cervix and uterus; Z90.49 Acquired absence of other specified parts of digestive tract
CPT/HCPCS: 36415; 36416; 70450; 74177; 80048; 80053; 80306; 81001; 83690; 85025; 87086; 87324; 87449; 87505; 96374; G0378; J0696; J1650; J1815; J1885; J2405; Q9967